=== PATIENT | male | born 1935 | race Caucasian/White ===

== ENCOUNTER 2025-07-14 17:49 | Inpatient (IN) ==
--- NOTE | 2025-07-14 18:12 | ED Physician Documentation ---
PD HPI ABD PAIN Stated complaint Stated Complaint: N/V/ABD PX Chief complaint Chief Complaint: Abd Pain History obtained from History obtained from: Patient, Family and EMS History of Present Illness Pain level max: 10 Pain level now: 10 Quality: Aching and Pain Associated symptoms: No Melena or Hematochezia Additional information Additional information: 89-year-old male presents to the emergency department with sudden onset left lower quadrant abdominal pain at about noon today. 5-10 episodes of vomiting since then. He states he tripped fell and hit the ground with his face. He is unsure if he passed out or lost consciousness. No chest pain. No shortness of breath. He states he has been dealing with constipation. Was hypotensive with EMS. Not on blood thinners. Denies any abdominal surgeries in the past. Review of Systems Constitutional Denies: Fever or Chills Respiratory Denies: Cough Gastrointestinal Reports: Vomiting; Denies: Harvinder blood emesis or Coffee grounds in vomit Meds/Allgy Home Medications Ambulatory Orders Medication Instructions Recorded Confirmed amlodipine 5 mg tablet 5 mg PO DAILY 01/18/2501/18 doxazosin 8 mg tablet 8 mg PO DAILY 01/18/2501/18 fluticasone 500 mcg-salmeterol 50 1 inh inhalation PRN PRN wheezing 01/18/25 01/18/25 mcg/dose blistr powdr for inhalation (Wixela Inhub) lisinopril 10 mg tablet 10 mg PO DAILY 01/18/2512/10 pantoprazole 40 mg tablet,delayed 40 mg PO DAILY 01/1801/18/25 release simvastatin 20 mg tablet 20 mg PO DAILY 01/18/2512/10 trazodone 50 mg tablet 50 mg PO DAILY 01/18/2512/10 Allergies Allergies Allergy/AdvReac Type Severity Reaction Status Date / Time No Known Drug Allergies Allergy Verified 07/14/25 17:53 PFSH Active Problems All Active Problems (Updated 07/14/25 @ 23:23 by Byron Reyes MD) Vomiting (Acute) Incarcerated left inguinal hernia (Acute) Anxiety (Chronic) Asthma (Chronic) Hypertension (Chronic) Bowel obstruction (Acute) Left inguinal hernia (Acute) Medical History Medical History Esophageal obstruction due to food impaction History of prostate cancer (~2002) s/p brachytherapy Surgical History Surgical History History of colonoscopy History of tonsillectomy Social History Social History Do you feel safe in your home environment?: Yes History of physical, verbal, emotional, or financial abuse?: No Exam Exam Vital Signs: Vital Signs x48h Temp Pulse Resp BP Pulse Ox O2 Flow Rate 07/14/25 22:00 37 C 105 H 22 117/80 94 3 07/14/25 20:00 101 H 18 137/52 H 98 07/14/25 18:59 93 18 137/52 H 92 07/14/25 17:50 36.1 C L 97 19 138/66 H 95 Constitutional normal general appearance and no apparent distress Patient appears uncomfortable. HENMT oropharynx normal moist mucous membranes Eyes PERRL Neck/C-Spine visual inspection normal Respiratory breath sounds equal bilaterally, normal respiratory effort and clear to auscultation bilaterally Cardiovascular normal heart rate noted and regular rhythm noted Gastrointestinal Distended abdomen, tympanic to percussion, generalized tenderness to palpation. No peritoneal signs Genitourinary no CVA tenderness Extremities no edema Neurology speech normal Psychiatry mental status grossly normal and oriented x3 Skin skin color normal Results Vitals Vitals: Vital Signs - 24 hr 07/14/25 17:50 07/14/25 18:17 07/14/25 18:46 Temperature 36.1 C L Temperature Source Temporal Artery Scan Pulse Rate 97 Respiratory Rate 19 Blood Pressure 138/66 H O2 Saturation 95 O2 Source Room air If not protocol: Oxygen Flow, liters/minute Pain Intensity 9 9 9 07/14/25 18:52 07/14/25 18:59 07/14/25 19:57 Temperature Temperature Source Pulse Rate 93 Respiratory Rate 18 Blood Pressure 137/52 H O2 Saturation 92 O2 Source Room air If not protocol: Oxygen Flow, liters/minute Pain Intensity 8 7 7 07/14/25 20:00 07/14/25 20:05 07/14/25 21:16 Temperature Temperature Source Pulse Rate 101 H Respiratory Rate 18 Blood Pressure 137/52 H O2 Saturation 98 O2 Source Room air If not protocol: Oxygen Flow, liters/minute Pain Intensity 3 7 4 07/14/25 22:00 07/14/25 22:37 07/14/25 23:07 Temperature 37 C Temperature Source Pulse Rate 105 H Respiratory Rate 22 Blood Pressure 117/80 O2 Saturation 94 O2 Source Nasal cannula If not protocol: Oxygen Flow, liters/minute 3 Pain Intensity 7 7 4 Oxygen O2 Source Nasal cannula EKG (time done) 1815: EKG releavant findings:: EKG personally interpreted by author of this note. Relevant findings are: Rate: Other (84 bpm. Sinus rhythm. Normal NC interval. Right bundle branch block. No ischemic changes) Labs Labs: Laboratory Tests 07/14/25 07/14/25 07/14/25 18:05 18:38 22:42 WBC 20.2 H 27.4 H RBC 4.78 4.54 L Hgb 15.2 14.5 Hct 46.1 44.2 MCV 96.4 H 97.4 H MCH 31.8 H 31.9 H MCHC 33.0 32.8 RDW 13.1 13.2 Plt Count 318 317 MPV 10.6 9.9 Neut # (Auto) 18.3 H 25.6 H Lymph # (Auto) 1.1 L 0.5 L [place] # (Auto) 0.6 1.2 H Eos # (Auto) 0.0 0.0 Baso # (Auto) 0.1 0.1 Absolute Nucleated RBC 0.00 0.00 Band Neuts % (Manual) Not Reportable Not Reportable Abnorm Lymph % (Manual) Not Reportable Not Reportable Nucleated RBC % 0.0 0.0 Neutrophils # (Manual) Not Reportable Not Reportable Lymphocytes # (Manual) Not Reportable Not Reportable Monocytes # (Manual) Not Reportable Not Reportable Eosinophils # (Manual) Not Reportable Not Reportable Basophils # (Manual) Not Reportable Not Reportable Differential Comment MANUAL=AUTO DIFF MANUAL=AUTO DIFF Manual Slide Review Indicated Indicated Platelet Estimate NORMAL (130-450,000) NORMAL (130-450,000) Platelet Morphology NORMAL APPEARANCE NORMAL APPEARANCE RBC Morph Micro Appear NORMAL APPEARANCE NORMAL APPEARANCE Sodium 136 137 Potassium 3.9 4.1 Chloride 103 108 Carbon Dioxide 24 23 Anion Gap 9.0 6.0 BUN 21 H 22 H Creatinine 1.5 H 1.5 H Estimated GFR (MDRD) 44 L 44 L Glucose 160 H 138 H Lactic Acid 2.3 H 1.6 Calcium 8.9 7.9 L Total Bilirubin 1.0 AST 19 ALT 19 Alkaline Phosphatase 51 Total Protein 6.6 Albumin 4.0 Globulin 2.6 Albumin/Globulin Ratio 1.5 Lipase 25 Rads (name of study) CT abdomen pelvis: Relevant Findings:: Final report received PD Medical Decision Making ED course Complexity details: reviewed results, re-evaluated patient, considered differential, d/w patient, d/w family and d/w business info consultant ED course: 89-year-old male with an incarcerated left inguinal hernia causing a bowel obstruction. The inguinal hernia was reduced in the emergency department, patient still has a large amount of stomach contents and fecal contents backing up up from the bowel obstruction, continues to have pain. Elevated white blood cell count but is lactate decreased from 2.3-1.6. NG tube was placed. Discussed with Dr. Reyes, general surgery on-call, recommends repeat evaluation after NG tube placement. If heart rate has come down and pain is improving, recommend admission to the hospitalist service and surgery will consult in the morning. If pain is increasing or heart rate is not improving despite NG tube on repeat assessment, will require a callback tonight to surgery. Patient signed out to Dr. Narvaez. This document was made in part using voice recognition software. While efforts are made to proofread this document, sound alike and grammatical errors may occur. Discharge Plan Discharge Condition: Stable Clinical Impression: Incarcerated left inguinal hernia Bowel obstruction Qualifiers: Intestinal obstruction type: unspecified Intestinal obstruction extent: partial Qualified Code(s): K56.600 - Partial intestinal obstruction, unspecified as to cause Vomiting Qualifiers: Vomiting type: unspecified Nausea presence: with nausea Qualified Code(s): R11.2 - Nausea with vomiting, unspecified Prescriptions: No Action trazodone 50 mg tablet 50 mg PO DAILY amlodipine 5 mg tablet 5 mg PO DAILY doxazosin 8 mg tablet 8 mg PO DAILY pantoprazole 40 mg tablet,delayed release (DR/EC) 40 mg PO DAILY simvastatin 20 mg tablet 20 mg PO DAILY lisinopril 10 mg tablet 10 mg PO DAILY fluticasone propion-salmeterol [Wixela Inhub] 500-50 mcg/dose blister with device 1 inh INHALATION PRN PRN (Reason: wheezing) Print Language: Guamanian Stand Alone Forms: PCP List
[2025-07-14] MEDS: HYDROmorphone 0.5 MG/0.5 ML SYRINGE IVP STA ×4 (18:17→22:37)
[2025-07-14 18:18] LABS: HCT - HEMATOCRIT 46.1 % (42.0-52.0); HGB - HEMOGLOBIN 15.2 g/dL (14.0-18.0); MEAN PLATELET VOLUME 10.6 fL (7.4-11.4); NRBC ABSOLUTE COUNT (AUTO) 0.00 x10^3/uL; NUCLEATED RED BLOOD CELLS AUTO 0.0 /100WBC; PLT - PLATELET COUNT 318 10^3/uL (130-450); RED CELL DISTRIBUTION WIDTH 13.1 % (12.0-15.0)
[2025-07-14] MEDS: SODIUM CHLORIDE 0.9% 1,000 ML IV STA ×4 (18:18→22:38)
[2025-07-14 18:19] LABS: SLIDE REVIEW? Indicated
[2025-07-14 19:01] LABS: PLATELET ESTIMATE, MANUAL NORMAL (130-450,000) (NORMAL); PLATELET MORPHOLOGY NORMAL APPEARANCE (NORMAL); RBC MORPHOLOGY (MULTIPLE) NORMAL APPEARANCE (NORMAL)
[2025-07-14 19:03] LABS: ALT ALANINE AMINOTRANSFERASE 19.0 IU/L (10-60); AST ASPARTATE AMINOTRANSFERASE 19.0 IU/L (10-42); BUN - BLOOD UREA NITROGEN 21.0 mg/dL (6-20); CARBON DIOXIDE - CO2 24.0 mmol/L (21-32); CREATININE 1.5 mg/dL (0.6-1.3); GFR - MDRD 44.0 (>89)
[2025-07-14] MEDS: HYOSCYAMINE SL 0.125 MG TABLET SL STA (20:05)
--- NOTE | 2025-07-14 20:45 | CT Report ---
PROCEDURE: CT Abdomen/Pelvis W INDICATIONS: diffuse abd pain, vomiting, distention CONTRAST: omni 300, 100ml TECHNIQUE: After the administration of intravenous contrast, a CT scan of the abdomen and pelvis was performed. Images were recorded and evaluated at appropriate window settings. Reformats: coronal and sagittal. For radiation dose reduction, the following was used: automated exposure control, adjustment of mA and/or kV according to patient size. COMPARISON: CT abdomen pelvis 08/28/2014 FINDINGS: Image quality: Diagnostic. Lower chest: Subsegmental atelectasis. Patulous esophagus. Moderate hiatal hernia Liver: No solid mass. Gallbladder: No radiopaque stones or wall thickening. Biliary tree: No intrahepatic or extrahepatic dilation, accounting for age. Spleen: No splenomegaly. Pancreas: No pancreatic ductal dilation. Adrenals: No adrenal nodule. Kidneys and ureters: No hydronephrosis. No renal cystic lesion which requires follow up. No solid mass. Stomach, bowel and peritoneum: There is distention of the colon from the cecum, transverse colon and left descending colon to the level of the inguinal hernia. Exiting bowel from the hernia sac is decompressed. There is fecal stasis predominantly seen in the left colon. No wall thickening or pneumatosis coli no gastric or small bowel dilation. No abnormal wall thickening. No pathologic free fluid. Normal appendix. Lymph nodes: No central or retroperitoneal adenopathy. Vessels: No infrarenal aortic aneurysm. Patent portal vein. PELVIS Reproductive organs: Brachytherapy seeds. Bladder: No abnormal wall thickening. Pelvic lymph nodes: No pelvic adenopathy by size criteria. Bones: No aggressive osseous abnormality. Other: Left inguinal hernia containing descending colon.. IMPRESSION: Left inguinal hernia containing descending colon with upstream distention of large bowel concerning for possible partial obstruction. No wall thickening or CT evidence of strangulation. Patulous esophagus with moderate hiatal hernia. Reviewed by: Eugenie Lowry MD, PhD on 07/14/2025 8:42 PM PDT Approved by: Eugenie Lowry MD, PhD on 07/14/2025 8:42 PM PDT Station ID: [id number]
--- NOTE | 2025-07-14 20:46 | CT Report ---
PROCEDURE: CT Head WO INDICATIONS: fall, head injury TECHNIQUE: CT of the head was performed, without intravenous contrast. Reformats: Coronal and sagittal. For radiation dose reduction, the following was used: automated exposure control, adjustment of mA and/or kV according to patient size. COMPARISON: None. FINDINGS: Image quality: Diagnostic. CSF spaces: Basal cisterns are patent. No extra-axial fluid collections. Ventricles are normal in size and shape. Brain: No midline shift. No intracranial mass effect or hemorrhage. Resendiz- white matter interface is normal. Skull and face: Calvarium and visualized facial bones are intact, without suspicious lesions. Sinuses: Diffuse maxillary mucosal thickening and areas of opacification. Mastoids are clear. IMPRESSION: No acute intracranial pathology. Reviewed by: Eugenie Lowry MD, PhD on 07/14/2025 8:43 PM PDT Approved by: Eugenie Lowry MD, PhD on 07/14/2025 8:43 PM PDT Station ID: [id number]
[2025-07-14] MEDS: MIDAZOLAM 2 MG/2 ML VIAL IVP STA ×2 (21:26→23:13)
[2025-07-14 22:47] LABS: HCT - HEMATOCRIT 44.2 % (42.0-52.0); HGB - HEMOGLOBIN 14.5 g/dL (14.0-18.0); MEAN PLATELET VOLUME 9.9 fL (7.4-11.4); NRBC ABSOLUTE COUNT (AUTO) 0.00 x10^3/uL; NUCLEATED RED BLOOD CELLS AUTO 0.0 /100WBC; PLT - PLATELET COUNT 317 10^3/uL (130-450); RED CELL DISTRIBUTION WIDTH 13.2 % (12.0-15.0)
[2025-07-14] MEDS: LIDOCAINE JELLY 2% 6 ML JEL.PF.APP TOP STA (22:59)
[2025-07-14 23:01] LABS: BUN - BLOOD UREA NITROGEN 22.0 mg/dL (6-20); CARBON DIOXIDE - CO2 23.0 mmol/L (21-32); CREATININE 1.5 mg/dL (0.6-1.3); GFR - MDRD 44.0 (>89)
[2025-07-14 23:02] LABS: SLIDE REVIEW? Indicated
--- NOTE | 2025-07-14 23:12 | CONSULTATION NOTE ---
Referring Provider Name of Referring Provider:: ED (Eric) Consult Date: 07/14/25 Chief Complaint Chief Complaint Chief Complaint: My belly hurts. History of Present Illness History of Present Illness HPI Comment/Other: Patient presents with 5 hour history of abdominal pain, associated with nausea and vomiting after eating a salad at lunch around 1200 today. His pain progressively worsened and he had nausea and emesis. He then fell to the ground without hitting anything per his report, vomited again, and then hit his head on a plastic trash can while vomiting, per his . The patient reports he has been constipated for the last several days. He has never had similar symptoms in the past. He has a known left groin hernia which has never bothered him much before. Patient lives with his . He wishes to be a DNAR/DNI. PFSH Active Problems All Active Problems (Updated 07/14/25 @ 23:36 by Mariya Reyes MD) Gout (Chronic) Vomiting (Acute) Incarcerated left inguinal hernia (Acute) Anxiety (Chronic) Asthma (Chronic) Hypertension (Chronic) Bowel obstruction (Acute) Left inguinal hernia (Acute) Medical History Medical History Esophageal obstruction due to food impaction History of prostate cancer (~2002) s/p brachytherapy Surgical History Surgical History H/O sinus surgery History of colonoscopy History of tonsillectomy Social History Social History Do you feel safe in your home environment?: Yes History of physical, verbal, emotional, or financial abuse?: No POLST POLST CPR Status: Do Not Attempt Resuscitation (DNAR) / Allow Natural Meds/Allgy Home Medications Ambulatory Orders Medication Instructions Recorded Confirmed amlodipine 5 mg tablet 5 mg PO DAILY 01/18/2507/14 doxazosin 8 mg tablet 8 mg PO BID 01/18/25 5 fluticasone 500 mcg-salmeterol 50 1 inh inhalation PRN PRN wheezing 01/18/25 07/14/25 mcg/dose blistr powdr for inhalation (Wixela Inhub) lisinopril 10 mg tablet 10 mg PO DAILY 01/18/2506/19 pantoprazole 40 mg tablet,delayed 40 mg PO DAILY 01/1807/14/25 release simvastatin 20 mg tablet 20 mg PO DAILY 01/18/2506/19 trazodone 50 mg tablet 25 mg PO DAILY 01/18/2506/19 alprazolam 0.25 mg tablet 0.125 - 0.25 mg PO DAILY PRN 07/14/25 07/14/25 anxiety aspirin 81 mg capsule 81 mg PO DAILY 07/14/2506/19 colchicine 0.6 mg capsule See Rx Instructions PO DAILY 07/14/25 07/14/25 hydrocodone 5 mg-acetaminophen 325 1 tab PO Q4H PRN pa in 07/14/25 07/14/25 mg tablet Allergies Allergies Allergy/AdvReac Type Severity Reaction Status Date / Time No Known Drug Allergies Allergy Verified 07/14/25 17:53 Results Lab Results 07/14/25 22:42 07/14/25 22:42 Other Lab Results: Lab Results x24hrs 07/14/25 07/14/25 07/14/25 Range/Units 22:42 18:38 18:05 WBC 20.2 H (4.8-10.8) x10^3/uL RBC 4.78 (4.70-6.10) 10^6/uL Hgb 15.2 (14.0-18.0) g/dL Hct 46.1 (42.0-52.0) % MCV 96.4 H (80.0-94.0) fL MCH 31.8 H (27.0-31.0) pg MCHC 33.0 (32.0-36.0) g/dL RDW 13.1 (12.0-15.0) % Plt Count 318 (130-450) 10^3/uL MPV 10.6 (7.4-11.4) fL Neut # (Auto) 18.3 H (1.5-6.6) 10^3/uL Lymph # (Auto) 1.1 L (1.5-3.5) 10^3/uL [place] # (Auto) 0.6 (0.0-1.0) 10^3/uL Eos # (Auto) 0.0 (0.0-0.7) 10^3/uL Baso # (Auto) 0.1 (0.0-0.1) 10^3/uL Absolute Nucleated RBC 0.00 x10^3/uL Band Neuts % (Manual) Not Reportable Abnorm Lymph % (Manual) Not Reportable Nucleated RBC % 0.0 /100WBC Neutrophils # (Manual) Not Reportable Lymphocytes # (Manual) Not Reportable Monocytes # (Manual) Not Reportable Eosinophils # (Manual) Not Reportable Basophils # (Manual) Not Reportable Differential Comment MANUAL=AUTO DIFF Manual Slide Review Indicated Platelet Estimate NORMAL (130-450,000) (NORMAL) Platelet Morphology NORMAL APPEARANCE (NORMAL) RBC Morph Micro Appear NORMAL APPEARANCE (NORMAL) Sodium 137 136 (135-145) mmol/L Potassium 4.1 3.9 (3.5-4.5) mmol/L Chloride 108 103 (101-111) mmol/L Carbon Dioxide 23 24 (21-32) mmol/L Anion Gap 6.0 9.0 (6-13) BUN 22 H 21 H (6-20) mg/dL Creatinine 1.5 H 1.5 H (0.6-1.3) mg/dL Estimated GFR (MDRD) 44 L 44 L (>89) Glucose 138 H 160 H (74-104) mg/dL Lactic Acid 1.6 2.3 H (0.5-2.2) mmol/L Calcium 7.9 L 8.9 (8.5-10.3) mg/dL Total Bilirubin 1.0 (0.2-1.0) mg/dL AST 19 (10-42) IU/L ALT 19 (10-60) IU/L Alkaline Phosphatase 51 (42-121) IU/L Total Protein 6.6 (6.4-8.9) g/dL Albumin 4.0 (3.2-5.5) g/dL Globulin 2.6 (2.1-4.2) g/dL Albumin/Globulin Ratio 1.5 (1.0-2.2) Lipase 25 (11-82) U/L Repeat labs are currently pending Diagnostic Imaging Results Diagnostic Imaging Results: positive Final report reviewed Diagnostic Imaging Results Comments: CT scan of the abdomen and pelvis from today demonstrates large bowel in the left inguinal hernia causing a partial obstruction with gaseous distention of the colon. He has mild distention of the small bowel and stomach. There is no free air. There is no significant free fluid. There is marked central obesity. CT scan of the head today demonstrates no acute intracranial pathology. Review of Systems Status of ROS: 10 or more systems reviewed and unremarkable except as noted in history and below Exam Exam Vital Signs: Vital Signs x48h Temp Pulse Resp BP Pulse Ox O2 Flow Rate 07/14/25 22:00 98.6 F 105 H 22 117/80 94 3 07/14/25 20:00 101 H 18 137/52 H 98 07/14/25 18:59 93 18 137/52 H 92 07/14/25 17:50 97.0 F L 97 19 138/66 H 95 GEN: No acute distress, appears stated age, alert and oriented to person, place and time HEENT: pupils 2mm bilaterally, PERRL, dry mucous membranes, EOMI, abrasions on central forehead and bridge of nose. NEURO: CN II-XII grossly intact, no obvious focal deficits CV: mild tachycardia, regular rhythm (patient examined just after attempt at NG placement) PULM: coarse breath sounds bilaterally ABD: obese, moderately distended, with mild upper abdominal tenderness to palpation and moderate lower tenderness to palpation, no rebound or guarding; pruett in place with 500mL yellow urine on placement CIRCULATORY: no clubbing, cyanosis, or edema SKIN: no lesions appreciated LYMPH: no obvious lymphadenopathy MSK: 4/4 strength in all extremities PSYCH: Affect is appropriate Conclusion/Plan Problem List (1) Left inguinal hernia: (2) Bowel obstruction: (3) Hypertension: (4) Asthma: (5) Anxiety: Plan 89-year-old gentleman with: 1. Left inguinal hernia, incarcerated, causing bowel obstruction The hernia which appeared incarcerated on CT, was reduced by the emergency room provider. After reduction, the patient continues to have some abdominal discomfort. - I suspect his obstruction will resolve now that the hernia has been reduced. He continues to have nausea and is distended. An NG tube has been ordered. If output is low overnight. Plan to clamp in the morning. - He has no peritoneal signs or need for emergent surgical intervention at this time. I do recommend close outpatient follow-up and elective hernia repair. The benefit to elective hernia repair is less risk for bacterial translocation thereby reducing the risk for mesh placement, which would allow for a more robust repair. I discussed this with the patient and his and they are agreeable to this plan of care. 2. KSENIA, urinary retention The patient has received 2.5 L of fluid since his presentation. Repeat labs are pending. - Prutet catheter placed. 3. elevated lactate level - likely due to dehydration. Rechecking lactate level now. 3. constipation - consider suppository vs enema in AM given several day h/o constipation prior to admission 3. Hypertension, asthma, anxiety, history of prostate cancer, hyperlipidemia, GERD, gout -Due to the patient's multiple medical comorbidities, I have recommended that he be admitted by the medicine team for observation. I appreciate their recommendations in managing his chronic comorbidities. Patient wishes to be DNAR/DNI; he clearly articulates this wish to me and states he's previously signed a DNR. I anticipate the patient will likely improve significantly overnight, likely discharge tomorrow if he is able to tolerate a diet and his pain is improved. If he remains unsteady on his feet, he may need PT evaluation. His is worried about him getting around at home as she has limited mobility herself. I discussed the above plan of care with the patient, his , and the ED provider (Dr. Reyes). Lab Results 07/14/25 22:42 07/14/25 22:42 Diagnostic Imaging Results Diagnostic Imaging Results: positive Final report reviewed
[2025-07-14 23:15] LABS: PLATELET ESTIMATE, MANUAL NORMAL (130-450,000) (NORMAL); PLATELET MORPHOLOGY NORMAL APPEARANCE (NORMAL); RBC MORPHOLOGY (MULTIPLE) NORMAL APPEARANCE (NORMAL)
[2025-07-14 23:23] LABS: GLUCOSE, URINE (UA) NEGATIVE (NEGATIVE); KETONES,URINE (UA) NEGATIVE (NEGATIVE); OCCULT BLOOD,URINE NEGATIVE (NEGATIVE)
[2025-07-15] MEDS ORDERED: LIDOCAINE 1% 2 ML VIAL ONE (00:19)
--- NOTE | 2025-07-15 00:29 | ED Physician Documentation ---
ED Addendum Addendum Addendum: I received signout/turnover on this patient from Dr. Reyes; please see his note for complete H&P. Testing from the emergency standpoint has been completed and results are suggestive of small bowel obstruction in association with a left inguinal hernia (left inguinal hernia apparent on both CT scan as well as on physical exam). The left inguinal hernia was reduced by Dr. Lou prior to turnover of care. Dr. Lou had spoken to the on-call surgeon (Dr. Reyes) and Dr. Reyes s ubsequently comes to ED and evaluated patient. Dr. Reyes says patient is appropriate for [facility] to [facility], she recommends hospitalist admission. NG tube had been placed during Dr. Lou's shift. However, x-ray showed the tube was not in proper position and thus it was removed and replaced by ED RN. Confirmation of appropriate placement by x-ray is pending at the time of turnover of care. Unfortunately, on x-ray, the tube is again not in proper position; it appears to be near the diaphragm but is clearly not below it, suspect it is in the hiatal hernia (the hiatal hernia is seen on CT A/P from earlier). ED RN pulled the tube back without removing it entirely, then again advanced the NGT. Unfortunately, yet again the NGT tip is above the diaphragm in a position that would suggest it is in hiatal hernia. I spoke with [facility] and they do not feel comfortable admitting the patient until I discussed the problem with the NG tube with Dr. Reyes. I then discussed this with Dr. Reyes. She says the tube can be left in its current position provided it is not curled up/coiled in posterior pharynx, and would particularly recommend keeping it in current position if there is any ou tput to intermittent low wall suction. ED RN had told me there was small amount of NGT output on this placement, and she subsequently rechecks the posterior o/p and no evidence of coiling of the tube in posterior oropharynx. I then recontacted [facility] who will admit to hospitalist service [facility]. Discharge Plan Discharge Patient Disposition: 68 [facility] DC/Xfer Condition: Stable Clinical Impression: Incarcerated left inguinal hernia Bowel obstruction Qualifiers: Intestinal obstruction type: unspecified Intestinal obstruction extent: partial Qualified Code(s): K56.600 - Partial intestinal obstruction, unspecified as to cause Vomiting Qualifiers: Vomiting type: unspecified Nausea presence: with nausea Qualified Code(s): R11.2 - Nausea with vomiting, unspecified Interventions: ED Admission Assessment Last Done: 07/15/25 03:05 Vitals documented within 30 minutes of discharge?: Yes
[2025-07-15] MEDS ORDERED: [UNRECOGNIZED DRUG - OTHER] INH PRN (00:30)
[2025-07-15] MEDS: LIDOCAINE 1% 2 ML VIAL TD STA (00:32)
[2025-07-15] MEDS: HYDROmorphone 1 MG/ML CARPUJECT IVP STA ×2 (00:42→02:00)
[2025-07-15] MEDS ORDERED: ACETAMINOPHEN 325 MG TABLET PO PRN (00:52)
[2025-07-15] MEDS ORDERED: ONDANSETRON 4 MG/2 ML VIAL IVP PRN (00:52)
[2025-07-15] MEDS ORDERED: BENZONATATE 100 MG CAPSULE PO PRN (00:52)
--- NOTE | 2025-07-15 00:59 | XRAY Report ---
PROCEDURE: XR Chest for Line Placement INDICATIONS: NG placement TECHNIQUE: 1 view of the chest COMPARISON: CT abdomen pelvis July 14, 2025 FINDINGS: Enteric tube tip curled in the lower mediastinum above the level of the diaphragm likely within known moderate sized hiatal hernia. No pneumothorax or pleural effusion. No focal consolidation. Heart size normal. IMPRESSION: Enteric tube placement as above. Reviewed by: Glynn Modi MD on 07/15/2025 12:56 AM PDT Approved by: Glynn Modi MD on 07/15/2025 12:56 AM PDT Station ID: [id number]
--- NOTE | 2025-07-15 01:00 | XRAY Report ---
PROCEDURE: XR Chest for Line Placement INDICATIONS: NGT placement TECHNIQUE: 1 view of the chest COMPARISON: None FINDINGS: Enteric tube tip and sideport curled within the lower mediastinum above the level of the diaphragm likely within known hiatal hernia. No focal consolidation. No pneumothorax or pleural effusion. Heart size normal. IMPRESSION: Enteric tube above the diaphragm as above. Reviewed by: Glynn Modi MD on 07/15/2025 12:57 AM PDT Approved by: Glynn Modi MD on 07/15/2025 12:57 AM PDT Station ID: [id number]
[2025-07-15] MEDS ORDERED: LORazepam 2 MG/ML VIAL ONE (02:00)
[2025-07-15] MEDS: LORazepam 2 MG/ML VIAL IVP STA (02:01)
--- NOTE | 2025-07-15 02:53 | HISTORY & PHYSICAL EXAMINATION ---
Chief Complaint Chief Complaint Chief Complaint: abd pain, nausea / vomiting, fall History of Present Illness History of Present Illness HPI Comment/Other: pt with lower abdominal pain + nausea and vomiting that developed in last 24-48 h. no fevers but has chills. states he tripped and fell @ home but unsure if he passed out. denies head injury. no chest pain. no sob. no dysuria or hematuria. pt does have occasional constipation Review of Systems Status of ROS: 10 or more systems reviewed and unremarkable except as noted in history and below PFSH Active Problems All Active Problems (Updated 07/14/25 @ 23:36 by Mariya Reyes MD) Gout (Chronic) Vomiting (Acute) Incarcerated left inguinal hernia (Acute) Anxiety (Chronic) Asthma (Chronic) Hypertension (Chronic) Bowel obstruction (Acute) Left inguinal hernia (Acute) Medical History Medical History Esophageal obstruction due to food impaction History of prostate cancer (~2002) s/p brachytherapy Surgical History Surgical History H/O sinus surgery History of colonoscopy History of tonsillectomy Social History Social History Smoking Status: Unknown if ever smoked Do you feel safe in your home environment?: Yes History of physical, verbal, emotional, or financial abuse?: No POLST POLST CPR Status: Do Not Attempt Resuscitation (DNAR) / Allow Natural Meds/Allgy Home Medications Ambulatory Orders Medication Instructions Recorded Confirmed amlodipine 5 mg tablet 5 mg PO DAILY 01/18/2507/14 doxazosin 8 mg tablet 8 mg PO BID 01/18/25 5 fluticasone 500 mcg-salmeterol 50 1 inh inhalation PRN PRN wheezing 01/18/25 07/14/25 mcg/dose blistr powdr for inhalation (Williamsela Inhub) lisinopril 10 mg tablet 10 mg PO DAILY 01/18/2506/19 pantoprazole 40 mg tablet,delayed 40 mg PO DAILY 01/1807/14/25 release simvastatin 20 mg tablet 20 mg PO DAILY 01/18/2506/19 trazodone 50 mg tablet 25 mg PO DAILY 01/18/2506/19 alprazolam 0.25 mg tablet 0.125 - 0.25 mg PO DAILY PRN 07/14/25 07/14/25 anxiety aspirin 81 mg capsule 81 mg PO DAILY 07/14/2506/19 colchicine 0.6 mg capsule See Rx Instructions PO DAILY 07/14/25 07/14/25 hydrocodone 5 mg-acetaminophen 325 1 tab PO Q4H PRN pa in 07/14/25 07/14/25 mg tablet Allergies Allergies Allergy/AdvReac Type Severity Reaction Status Date / Time No Known Drug Allergies Allergy Verified 07/14/25 17:53 Exam Exam Vital Signs: Vital Signs x48h Temp Pulse Resp BP Pulse Ox O2 Flow Rate 07/15/25 02:00 98 20 94/52 L 97 2 07/15/25 00:00 98 23 90/54 L 95 2 07/14/25 22:00 37 C 105 H 22 117/80 94 3 07/14/25 20:00 101 H 18 137/52 H 98 07/14/25 18:59 93 18 137/52 H 92 gen - aaox3, nad heent - ngt in place, nc/at heart - per ed charting lungs - no obvius distress or retractions abd - details per ed charting msk - no acute pathology noted Conclusion/Plan Problem List (1) Left inguinal hernia: (2) Bowel obstruction: Qualifiers: Intestinal obstruction extent: partial Intestinal obstruction type: u nspecified Qualified Code(s): K56.600 - Partial intestinal obstruction, unspecified as to cause (3) Hypertension: (4) Asthma: (5) Anxiety: Lab Results 07/14/25 22:42 07/14/25 22:42 Other Other Results/Comments: pt with - - abd pain multifactorial partial sbo also with L inguinal hernia, now s/p reduction ngt placed d/t nausea and vomiting but there is persistent coiling --> don't give meds via ngt at this time but continue ngt per surgery pt is feeling somewhat better gen surg on case, and appreciate evaluation and recommendations - fall unclear if there was head impact tripped and fell head CT negative and no neuro deficits - juan jose exacerbated t/ current presentation pre-renal azotemia from nausea/vomiting and decreased po intake check renal sono continue IVF avoid nephrotoxins as much as possible - leukocytosis + hypotension + elevated lactic acid no obvious infectious source d/t current presentation --> nausea/vomiting, gi losses continue IVF and monitor defer abx at this time
[2025-07-15] MEDS: LACTATED RINGERS 1,000 ML IV SCH (03:27)
[2025-07-15] MEDS: MORPHINE 2 MG/ML CARPUJECT IVP PRN (03:27)
[2025-07-15 04:44] LABS: HCT - HEMATOCRIT 44.5 % (42.0-52.0); HGB - HEMOGLOBIN 14.0 g/dL (14.0-18.0); MEAN PLATELET VOLUME 10.2 fL (7.4-11.4); NRBC ABSOLUTE COUNT (AUTO) 0.00 x10^3/uL; NUCLEATED RED BLOOD CELLS AUTO 0.0 /100WBC; PLT - PLATELET COUNT 321 10^3/uL (130-450); RED CELL DISTRIBUTION WIDTH 13.3 % (12.0-15.0)
[2025-07-15 05:04] LABS: ALT ALANINE AMINOTRANSFERASE 16.0 IU/L (10-60); AST ASPARTATE AMINOTRANSFERASE 17.0 IU/L (10-42); BUN - BLOOD UREA NITROGEN 28.0 mg/dL (6-20); CARBON DIOXIDE - CO2 23.0 mmol/L (21-32); CREATININE 1.6 mg/dL (0.6-1.3); GFR - MDRD 41.0 (>89)
[2025-07-15 05:06] LABS: CHOL/HDL RATIO 2.9 (<5.0); LDL/HDL RATIO 1.5 (<3.6); VLDL CHOLESTEROL 13 mg/dL
[2025-07-15 05:23] LABS: PLATELET ESTIMATE, MANUAL NORMAL (130-450,000) (NORMAL); PLATELET MORPHOLOGY NORMAL APPEARANCE (NORMAL); RBC MORPHOLOGY (MULTIPLE) NORMAL APPEARANCE (NORMAL); WBC MORPHOLOGY (MULTIPLE) NORMAL APPEARANCE (NORMAL)
[2025-07-15] MEDS: LACTATED RINGERS 1,000 ML IV ONE ×2 (05:57→21:23)
[2025-07-15] MEDS: HYDROmorphone 0.5 MG/0.5 ML SYRINGE IVP STA (05:58)
[2025-07-15] MEDS: ACETAMINOPHEN 1,000 MG/100 ML 1,000 MG/100 ML BAG IV ONE (07:34)
[2025-07-15] MEDS ORDERED: MORPHINE 2 MG/ML CARPUJECT IVP PRN (08:00)
--- NOTE | 2025-07-15 08:44 | PROVIDER PROGRESS NOTE ---
Subjective General Admit Date: 07/15/25 Other Other Information/Narrative: Patient transferred to floor and has received minimal pain medication overnight. He continues to have pain. Very difficult time placing NG overnight, low output per RN's. Review of Systems Status of ROS: 10 or more systems reviewed and unremarkable except as noted in history and below Exam Exam Vital Signs: Vital Signs x48h Temp Pulse Pulse Resp BP BP Pulse Ox 07/15/25 08:13 98.1 F 90 28 H 92/50 L 93 07/15/25 07:01 97.9 F 90 24 90/53 L 93 07/15/25 06:20 90/50 L 07/15/25 05:52 87/48 L 07/15/25 05:50 89/48 L 07/15/25 05:15 71/46 L 07/15/25 03:05 97 22 92/50 L 97 07/15/25 03:04 97.7 F 96 22 107/66 94 07/15/25 02:00 98 20 94/52 L 97 O2 Flow Rate 07/15/25 08:13 3 07/15/25 07:01 3 07/15/25 06:20 07/15/25 05:52 07/15/25 05:50 07/15/25 05:15 07/15/25 03:05 2 07/15/25 03:04 2 07/15/25 02:00 2 Gen: patient in mild distress due to pain, alert and oriented, opens eyes to voice HEENT:NG in place with small amount of bilious fluid in tube, no NG output recorded CV: RRR Pulm: coarse breath sounds bilaterally Abd: obese, distended, moderate, diffuse ttp, worst in LUQ. No r/g. Pruett in place, 150mL UOP recorded (patient had at least 500mL in pruett at time of placement) Ext: no c/c/e, multiple bruises Impression/Plan Problem List (1) Left inguinal hernia: (2) Bowel obstruction: Qualifiers: Intestinal obstruction extent: partial Intestinal obstruction type: unspecified Qualified Code(s): K56.600 - Partial intestinal obstruction, unspec ified as to cause (3) Hypertension: (4) Asthma: (5) Anxiety: Plan 89-year-old gentleman with: 1. Left inguinal hernia, incarcerated, causing bowel obstruction pain continues this AM, still no obvious peritoneal signs - leukocytosis and lactate level increased this AM - In order to r/o bowel compromise, and given patient's worsened objective picture, I recommend taking the patient to surgery for hernia repair, possible exploratory laparotomy, possible bowel resection this AM. I have discussed the risks, benefits, and alternatives including but not limited to bleeding, infection, leak, cardiopulmonary complication, possible need for further surgery or procedure, and even with the patient and his family. They voiced understanding, their questions were answered, and they wished to proceed. Patient signed consent in hospital room. If patient unstable in OR, may require damage control procedure, will transfer to ICU post op. - NG above diaphragm in hiatal hernia on CXR, will reposition in OR 2. KSENIA, urinary retention 4L? given in ED. Record indicates 3L boluses (1LR, 2NS) and 2 orders for IVF in ED, one order for IVF on floor - Pruett catheter in place 3. elevated lactate level - improved with IVF last night, increased again this AM. 3. constipation - consider suppository vs enema in AM given several day h/o constipation prior to admission, patient states last BM was 4 days prior to presentation. 3. Hypertension, asthma, anxiety, history of prostate cancer, hyperlipidemia, GERD, gout -Due to the patient's multiple medical comorbidities, patient admitted to medicine. Appreciate recommendations. Patient wishes to be DNAR/DNI; he clearly articulates this wish to me and states he's previously signed a DNR. Family updated on plan of care. Primary medicine team (Dr. Slick Reyes) updated on plan of care. Due to the patient's tenuous status, I have asked my partner, Dr. Damien Campa to assist with the surgery.
--- NOTE | 2025-07-15 08:49 | PROVIDER PROGRESS NOTE ---
Subjective Prog Note Date Prog Note Date: 07/15/25 Prog Note Time: 08:49 Subjective Subjective: Patient seen this morning, continues to be critically ill. He is continue to have abdominal pain. It is not responding to parenteral analgesia. He has not been receiving adequate narcotic overnight. Discussed case with surgery. They opted to take him back to the OR earlier this morning. He had a rising leukocytosis and softening pressures. He is now in septic shock. He was found in the OR to have several feet of colon. This was removed and he now has an ostomy in place. He remains critically ill. He is sedated and intubated in the ICU. Started on pressors. Discussed his case with his family. Extensive conversation with family after surgery. The patient spoke to Dr. Sharmaine Reyes last night and was very adamant that he did not want to have resuscitative efforts at that time. I discussed with his son and his at bedside. He is is obviously hoping that he gets better, She is bargaining and grasping for hope. After several reiteration's, we did clarify that if he were to get worse to the point where he dies it would be best to allow him a natural . We will keep doing all we can to avoid that unfortunate situation. His son agrees that his dad would not want to be on life support for prolonged period of time. Patient was made DNR. Current Medications Current Medications Current Medications: Current Medications Generic Name Dose Route Start Last Admin Trade Name Freq PRN Reason Stop Dose Admin Acetaminophen 650 mg 07/15/25 00:52 Acetaminophen 325 Mg Tablet PO Q6H PRN pain, fever Amlodipine Besylate 5 mg 07/15/25 09:00 Amlodipine 5 Mg Tablet PO DAILY TOMY Atorvastatin Calcium 10 mg 07/15/25 09:00 Atorvastatin 10 Mg Tablet PO DAILY TOMY Benzonatate 100 mg 07/15/25 00:52 Benzonatate 100 Mg Capsule PO TID PRN Cough Doxazosin Mesylate 8 mg 07/15/25 09:00 Doxazosin 4 Mg Tablet PO BID TOMY Lactated Ringer's 1,000 mls @ 125 mls/hr 07/15/25 01:00 07/15/25 03:27 Lr IV 125 mls/hr .Q8H TOMY Administration Lisinopril 10 mg 07/15/25 09:00 Lisinopril 5 Mg Tablet PO DAILY [facility] Morphine Sulfate 2 mg 07/15/25 08:00 Morphine 2 Mg/Ml Carpuject IVP Q2HR PRN pain Ondansetron HCl 4 mg 07/15/25 06:58 Ondansetron 4 Mg/2 Ml Vial IVP Q6HR PRN Nausea / Vomiting Pantoprazole Sodium 40 mg 07/15/25 09:00 Pantoprazole 40 Mg Tablet PO DAILY [facility] Objective Vital Signs/Intake & Output Vital Signs: Vital Signs x48h Temp Pulse Pulse Resp BP BP Pulse Ox 07/15/25 08:13 36.7 C 90 28 H 92/50 L 93 07/15/25 07:01 36.6 C 90 24 90/53 L 93 07/15/25 06:20 90/50 L 07/15/25 05:52 87/48 L 07/15/25 05:50 89/48 L 07/15/25 05:15 71/46 L 07/15/25 03:05 97 22 92/50 L 97 07/15/25 03:04 36.5 C 96 22 107/66 94 07/15/25 02:00 98 20 94/52 L 97 O2 Flow Rate 07/15/25 08:13 3 07/15/25 07:01 3 07/15/25 06:20 07/15/25 05:52 07/15/25 05:50 07/15/25 05:15 07/15/25 03:05 2 07/15/25 03:04 2 07/15/25 02:00 2 Intake & Output: Intake & Output 07/12/25 07/13/25 07/14/25 07/15/25 23:59 23:59 23:59 23:59 Intake Total 1999 3100 / 3100 Output Total 150 / 150 Balance 1999 2950 / 2950 Weight (kg) 100.5 kg 100.5 kg Objective Comments/Other: GEN: Intubated and sedated. HEENT: NC/AT, normal appearance of external ears and nose. Moist mucus membranes Cardiac: Regular rate and rhythm, no murmurs. No appreciable murmurs Pulm: Coarse ronchi diffusely, gurgling breaths prior to intubation. Abdomen: Midline incision is well approximated and dressed. Ostomy in place in R abdomen. NISREEN drain in left abdomen. Less distended. Soft. Extremeties: Palable pulses bilaterally Lab Results 07/15/25 13:56 07/15/25 13:56 Other Labs: Lab Results x24hrs 07/15/25 07/15/25 07/14/25 Range/Units 07:08 04:17 23:00 WBC 29.5 H (4.8-10.8) x10^3/uL RBC 4.40 L (4.70-6.10) 10^6/uL Hgb 14.0 (14.0-18.0) g/dL Hct 44.5 (42.0-52.0) % MCV 101.1 H (80.0-94.0) fL MCH 31.8 H (27.0-31.0) pg MCHC 31.5 L (32.0-36.0) g/dL RDW 13.3 (12.0-15.0) % Plt Count 321 (130-450) 10^3/uL MPV 10.2 (7.4-11.4) fL Neut # (Auto) 27.2 H (1.5-6.6) 10^3/uL Lymph # (Auto) 0.4 L (1.5-3.5) 10^3/uL Fisher # (Auto) 1.6 H (0.0-1.0) 10^3/uL Eos # (Auto) 0.0 (0.0-0.7) 10^3/uL Baso # (Auto) 0.1 (0.0-0.1) 10^3/uL Absolute Nucleated RBC 0.00 x10^3/uL Band Neuts % (Manual) Not Reportable Abnorm Lymph % (Manual) Not Reportable Nucleated RBC % 0.0 /100WBC Neutrophils # (Manual) Not Reportable Lymphocytes # (Manual) Not Reportable Monocytes # (Manual) Not Reportable Eosinophils # (Manual) Not Reportable Basophils # (Manual) Not Reportable Differential Comment MANUAL=AUTO DIFF Manual Slide Review WBC Morphology NORMAL APPEARANCE (NORMAL) Platelet Estimate NORMAL (130-450,000) (NORMAL) Platelet Morphology NORMAL APPEARANCE (NORMAL) RBC Morph Micro Appear NORMAL APPEARANCE (NORMAL) Sodium 138 (135-145) mmol/L Potassium 4.7 H (3.5-4.5) mmol/L Chloride 109 (101-111) mmol/L Carbon Dioxide 23 (21-32) mmol/L Anion Gap 6.0 (6-13) BUN 28 H (6-20) mg/dL Creatinine 1.6 H (0.6-1.3) mg/dL Estimated GFR (MDRD) 41 L (>89) Glucose 116 H (74-104) mg/dL Lactic Acid 2.4 H (0.5-2.2) mmol/L Calcium 7.8 L (8.5-10.3) mg/dL Magnesium 2.5 H (1.7-2.3) mg/dL Total Bilirubin 0.9 (0.2-1.0) mg/dL AST 17 (10-42) IU/L ALT 16 (10-60) IU/L Alkaline Phosphatase 37 L (42-121) IU/L Total Protein 5.5 L (6.4-8.9) g/dL Albumin 3.3 (3.2-5.5) g/dL Globulin 2.2 (2.1-4.2) g/dL Albumin/Globulin Ratio 1.5 (1.0-2.2) Triglycerides 65 mg/dL Cholesterol 104 ( - 200) mg/dL LDL Cholesterol, Calc 55 ( - 129) mg/dL VLDL Cholesterol 13 mg/dL HDL Cholesterol 36 L (60 - ) mg/dL LDL/HDL Ratio 1.5 (<3.6) Cholesterol/HDL Ratio 2.9 (<5.0) Lipase (11-82) U/L TSH 3.58 (0.34-5.60) uIU/mL Urine Color YELLOW Urine Clarity CLEAR (CLEAR) Urine pH 7.0 (5.0-7.5) PH Ur Specific Jamison 1.010 (1.002-1.030) Urine Protein NEGATIVE (NEGATIVE) mg/dL Urine Glucose (UA) NEGATIVE (NEGATIVE) mg/dL Urine Ketones NEGATIVE (NEGATIVE) mg/dL Urine Occult Blood NEGATIVE (NEGATIVE) Urine Nitrite NEGATIVE (NEGATIVE) Urine Bilirubin NEGATIVE (NEGATIVE) Urine Urobilinogen 0.2 (NORMAL) (NORMAL) E.U./dL Ur Leukocyte Esterase NEGATIVE (NEGATIVE) Ur Microscopic Review NOT INDICATED Urine Culture Comments NOT INDICATED 07/14/25 07/14/25 07/14/25 Range/Units 22:42 18:38 18:05 WBC 27.4 H 20.2 H (4.8-10.8) x10^3/uL RBC 4.54 L 4.78 (4.70-6.10) 10^6/uL Hgb 14.5 15.2 (14.0-18.0) g/dL Hct 44.2 46.1 (42.0-52.0) % MCV 97.4 H 96.4 H (80.0-94.0) fL MCH 31.9 H 31.8 H (27.0-31.0) pg MCHC 32.8 33.0 (32.0-36.0) g/dL RDW 13.2 13.1 (12.0-15.0) % Plt Count 317 318 (130-450) 10^3/uL MPV 9.9 10.6 (7.4-11.4) fL Neut # (Auto) 25.6 H 18.3 H (1.5-6.6) 10^3/uL Lymph # (Auto) 0.5 L 1.1 L (1.5-3.5) 10^3/uL Fisher # (Auto) 1.2 H 0.6 (0.0-1.0) 10^3/uL Eos # (Auto) 0.0 0.0 (0.0-0.7) 10^3/uL Baso # (Auto) 0.1 0.1 (0.0-0.1) 10^3/uL Absolute Nucleated RBC 0.00 0.00 x10^3/uL Band Neuts % (Manual) Not Reportable Not Reportable Abnorm Lymph % (Manual) Not Reportable Not Reportable Nucleated RBC % 0.0 0.0 /100WBC Neutrophils # (Manual) Not Reportable Not Reportable Lymphocytes # (Manual) Not Reportable Not Reportable Monocytes # (Manual) Not Reportable Not Reportable Eosinophils # (Manual) Not Reportable Not Reportable Basophils # (Manual) Not Reportable Not Reportable Differential Comment MANUAL=AUTO DIFF MANUAL=AUTO DIFF Manual Slide Review Indicated Indicated WBC Morphology (NORMAL) Platelet Estimate NORMAL (130-450,000) NORMAL (130-450,000) (NORMAL) Platelet Morphology NORMAL APPEARANCE NORMAL APPEARANCE (NORMAL) RBC Morph Micro Appear NORMAL APPEARANCE NORMAL APPEARANCE (NORMAL) Sodium 137 136 (135-145) mmol/L Potassium 4.1 3.9 (3.5-4.5) mmol/L Chloride 108 103 (101-111) mmol/L Carbon Dioxide 23 24 (21-32) mmol/L Anion Gap 6.0 9.0 (6-13) BUN 22 H 21 H (6-20) mg/dL Creatinine 1.5 H 1.5 H (0.6-1.3) mg/dL Estimated GFR (MDRD) 44 L 44 L (>89) Glucose 138 H 160 H (74-104) mg/dL Lactic Acid 1.6 2.3 H (0.5-2.2) mmol/L Calcium 7.9 L 8.9 (8.5-10.3) mg/dL Magnesium (1.7-2.3) mg/dL Total Bilirubin 1.0 (0.2-1.0) mg/dL AST 19 (10-42) IU/L ALT 19 (10-60) IU/L Alkaline Phosphatase 51 (42-121) IU/L Total Protein 6.6 (6.4-8.9) g/dL Albumin 4.0 (3.2-5.5) g/dL Globulin 2.6 (2.1-4.2) g/dL Albumin/Globulin Ratio 1.5 (1.0-2.2) Triglycerides mg/dL Cholesterol ( - 200) mg/dL LDL Cholesterol, Calc ( - 129) mg/dL VLDL Cholesterol mg/dL HDL Cholesterol (60 - ) mg/dL LDL/HDL Ratio (<3.6) Cholesterol/HDL Ratio (<5.0) Lipase 25 (11-82) U/L TSH (0.34-5.60) uIU/mL Urine Color Urine Clarity (CLEAR) Urine pH (5.0-7.5) PH Ur Specific Jamison (1.002-1.030) Urine Protein (NEGATIVE) mg/dL Urine Glucose (UA) (NEGATIVE) mg/dL Urine Ketones (NEGATIVE) mg/dL Urine Occult Blood (NEGATIVE) Urine Nitrite (NEGATIVE) Urine Bilirubin (NEGATIVE) Urine Urobilinogen (NORMAL) E.U./dL Ur Leukocyte Esterase (NEGATIVE) Ur Microscopic Review Urine Culture Comments Diagnostic Imaging Diagnostic Imaging Results: positive Final report reviewed and Read independently Diagnostic Imaging Comments: Chest x-ray and abdominal x-ray reviewed. NGT in place in the stomach. Central line in place in right atria. Sepsis Event Note (H) Evaluation Current Stage of Sepsis: Septic shock Possible source of Sepsis: positive GI tract/intra-abdominal Sepsis Criteria Sepsis Criteria: WBC count greater than 10% bands, WBC count greater than 12,000 or less than 4000, SBP less than 90 mmHg and Renal: urine output less than 0.5ml/kg/hr for 2 hours or creatinine gr Assessment/Plan Problem List (1) Septic shock: Impression: Patient on septic shock. Requiring pressors postoperatively. Was having softening pressors before going to the OR. Received 4 L of fluid in the OR. He is starting to make urine now. - ABG, CBC, CMP now - Lactate now - Continue vasopressin and Levophed, wean Levophed first - Started on meropenem - Follow drain output, appreciate general surgery - Continue sedation with fentanyl, loading push then drip - RT following (2) Metabolic acidosis: Impression: Suspect mostly lactate driven given his bowel ischemia. pH intraoperatively 7.18. Arterial line in place. Anion gap is nml on repeat labs this afternoon. Lactate only mildly elevated. Metabolic acidosis - Management as above - Will repeat 2 amps of bicarb - Pressor support as above (3) KSENIA (acute kidney injury): Impression: Most likely ATN from his septic state. - Will trend creatinine as above. - Avoid nephrotoxins as able - Support perfusion with pressors as above - If not recovering, will need transfer for consideration of dialysis - Would strongly consider revisiting goals of care at that point. (4) Ischemia, bowel: (5) Bowel obstruction: Qualifiers: Intestinal obstruction extent: partial Intestinal obstruction type: u nspecified Qualified Code(s): K56.600 - Partial intestinal obstruction, unspecified as to cause (6) Left inguinal hernia: Impression: Persistent left inguinal hernia. Suspect incarceration was the main driver messenger of his bowel ischemia as above. - Appreciate general surgery - They are deferring repair of his hernia at this time. - Patient remains at risk of incarceration, monitor closely when he starts waking up - NPO until return of bowel function, NGT in place (7) Hypertension: Impression: Chronic problem. And septic shock as above. Prior antihypertensives on hold. (8) Asthma: Impression: Noted, this may make extubation more difficult. - Appreciate RT involvement - Resume TRAFFIC CLERK inhalers when clinically appropriate (9) Anxiety: Impression: Prior to his hospitalization patient is on 0.125 to 0.25 mg p.o. as needed alprazolam. - Benzodiazepine pushes available for signs of discomfort, but will attempt to treat with analgesia as above. (10) BPH (benign prostatic hyperplasia): Impression: Currently NPO, will resume doxazosin once taking oral intake. I spent a total of 63 minutes in the care of this patient today. This time was spent reviewing his labs, vital signs, imaging, interviewing and examining the patient, and discussing his plan of care with him and his other care providers. Extensive discussions with surgery today. 58 minutes of critical care time inclusive of advance care planning. Patient was made DNR today.
--- NOTE | 2025-07-15 08:59 | ANESTHESIA PROCEDURE NOTE ---
Pre-Anesthesia VS, & Labs Diagnosis Surgical Diagnosis:: incarcerated inguinal hernia Procedure Procedure: exploratory laparotomy, repair of inguinal hernia, possible bowel resection Vitals Vital Signs: Temp Pulse Resp BP Pulse Ox O2 Flow Rate 36.7 C 90 28 H 92/50 L 93 3 07/15/25 08:13 07/15/25 08:13 07/15/25 08:13 07/15/25 08:13 07/15/25 08:13 07/15/25 08:13 Lab Results Current Lab Results: Laboratory Tests 07/15/25 07:08: Lactic Acid 2.4 H 07/15/25 04:17: WBC 29.5 H, RBC 4.40 L, Hgb 14.0, Hct 44.5, MCV 101.1 H, MCH 31.8 H, MCHC 31.5 L, RDW 13.3, Plt Count 321, MPV 10.2, Neut # (Auto) 27.2 H, L ymph # (Auto) 0.4 L, Pitt # (Auto) 1.6 H, Eos # (Auto) 0.0, Baso # (Auto) 0.1, Absolute Nucleated RBC 0.00, Band Neuts % (Manual) Not Reportable, Abnorm Lymph % (Manual) Not Reportable, Nucleated RBC % 0.0, Neutrophils # (Manual) Not Reportable, Lymphocytes # (Manual) Not Reportable, Monocytes # (Manual) Not Reportable, Eosinophils # (Manual) Not Reportable, Basophils # (Manual) Not Reportable, Differential Comment MANUAL=AUTO DIFF, WBC Morphology NORMAL APPEARANCE, Platelet Estimate NORMAL (130-450,000), Platelet Morphology NORMAL APPEARANCE, RBC Morph Micro Appear NORMAL APPEARANCE, Sodium 138, Potassium 4.7 H, Chloride 109, Carbon Dioxide 23, Anion Gap 6.0, BUN 28 H, Creatinine 1.6 H, E stimated GFR (MDRD) 41 L, Glucose 116 H, Calcium 7.8 L, Magnesium 2.5 H, Total Bilirubin 0.9, AST 17, ALT 16, Alkaline Phosphatase 37 L, Total Protein 5.5 L, Albumin 3.3, Globulin 2.2, Albumin/Globulin Ratio 1.5, Triglycerides 65, Cholesterol 104, LDL Cholesterol, Calc 55, VLDL Cholesterol 13, HDL Cholesterol 36 L, LDL/HDL Ratio 1.5, Cholesterol/HDL Ratio 2.9, TSH 3.58 07/14/25 22:42: WBC 27.4 H, RBC 4.54 L, Hgb 14.5, Hct 44.2, MCV 97.4 H, MCH 31.9 H, MCHC 32.8, RDW 13.2, Plt Count 317, MPV 9.9, Neut # (Auto) 25.6 H, Lymph # (Auto) 0.5 L, Pitt # (Auto) 1.2 H, Eos # (Auto) 0.0, Baso # (Auto) 0.1, Absolute Nucleated RBC 0.00, Band Neuts % (Manual) Not Reportable, Abnorm Lymph % (Manual) Not Reportable, Nucleated RBC % 0.0, Neutrophils # (Manual) Not Reportable, Lymphocytes # (Manual) Not Reportable, Monocytes # (Manual) Not Reportable, Eosinophils # (Manual) Not Reportable, Basophils # (Manual) Not Reportable, Differential Comment MANUAL=AUTO DIFF, Manual Slide Review Indicated, Platelet Estimate NORMAL (130-450,000), Platelet Morphology NORMAL APPEARANCE, RBC Morph Micro Appear NORMAL APPEARANCE, Sodium 137, Potassium 4.1, Chloride 108, Carbon Dioxide 23, Anion Gap 6.0, BUN 22 H, Creatinine 1.5 H, E stimated GFR (MDRD) 44 L, Glucose 138 H, Lactic Acid 1.6, Calcium 7.9 L 07/14/25 18:38: Sodium 136, Potassium 3.9, Chloride 103, Carbon Dioxide 24, Anion Gap 9.0, BUN 21 H, Creatinine 1.5 H, Estimated GFR (MDRD) 44 L, Glucose 160 H, Lactic Acid 2.3 H, Calcium 8.9, Total Bilirubin 1.0, AST 19, ALT 19, Alkaline Phosphatase 51, Total Protein 6.6, Albumin 4.0, Globulin 2.6, Albumin/Globulin Ratio 1.5, Lipase 25 07/14/25 18:05: WBC 20.2 H, RBC 4.78, Hgb 15.2, Hct 46.1, MCV 96.4 H, MCH 31.8 H , MCHC 33.0, RDW 13.1, Plt Count 318, MPV 10.6, Neut # (Auto) 18.3 H, Lymph # (Auto) 1.1 L, Pitt # (Auto) 0.6, Eos # (Auto) 0.0, Baso # (Auto) 0.1, Absolute Nucleated RBC 0.00, Band Neuts % (Manual) Not Reportable, Abnorm Lymph % (Manual) Not Reportable, Nucleated RBC % 0.0, Neutrophils # (Manual) Not Reportable, Lymphocytes # (Manual) Not Reportable, Monocytes # (Manual) Not Reportable, Eosinophils # (Manual) Not Reportable, Basophils # (Manual) Not Reportable, Differential Comment MANUAL=AUTO DIFF, Manual Slide Review Indicated, Platelet Estimate NORMAL (130-450,000), Platelet Morphology NORMAL APPEARANCE, RBC Morph Micro Appear NORMAL APPEARANCE 07/15/25 04:17 07/15/25 04:17 Meds/Allgy Home Medications Ambulatory Orders Medication Instructions Recorded Confirmed amlodipine 5 mg tablet 5 mg PO DAILY 01/18/2507/14 doxazosin 8 mg tablet 8 mg PO BID 01/18/25 5 fluticasone 500 mcg-salmeterol 50 1 inh inhalation PRN PRN wheezing 01/18/25 07/14/25 mcg/dose blistr powdr for inhalation (Wixela Inhub) lisinopril 10 mg tablet 10 mg PO DAILY 01/18/2506/19 pantoprazole 40 mg tablet,delayed 40 mg PO DAILY 01/1807/14/25 release simvastatin 20 mg tablet 20 mg PO DAILY 01/18/2506/19 trazodone 50 mg tablet 25 mg PO DAILY 01/18/2506/19 alprazolam 0.25 mg tablet 0.125 - 0.25 mg PO DAILY PRN 07/14/25 07/14/25 anxiety aspirin 81 mg capsule 81 mg PO DAILY 07/14/2506/19 colchicine 0.6 mg capsule See Rx Instructions PO DAILY 07/14/25 07/14/25 hydrocodone 5 mg-acetaminophen 325 1 tab PO Q4H PRN pa in 07/14/25 07/14/25 mg tablet Allergies Allergies Allergy/AdvReac Type Severity Reaction Status Date / Time No Known Drug Allergies Allergy Verified 07/14/25 17:53 PFSH Active Problems All Active Problems (Updated 07/14/25 @ 23:36 by Mariya Reyes MD) Gout (Chronic) Vomiting (Acute) Incarcerated left inguinal hernia (Acute) Anxiety (Chronic) Asthma (Chronic) Hypertension (Chronic) Bowel obstruction (Acute) Left inguinal hernia (Acute) Medical History Medical History Esophageal obstruction due to food impaction History of prostate cancer (~2002) s/p brachytherapy Surgical History Surgical History H/O sinus surgery History of colonoscopy History of tonsillectomy Social History Social History (Updated 07/15/25 @ 03:16 by Zohaib Coffman DO) Smoking Status: Unknown if ever smoked If you are a former smoker, when did you quit? (Date/Year): 1999 Second hand tobacco smoke exposure: No Do you dip or chew tobacco?: No Do you vape?: No Patient requests smoking cessation consult: No Initiate information on smoking cessation: No Level: Independent Do you feel safe in your home environment?: Yes History of physical, verbal, emotional, or financial abuse?: No POLST POLST CPR Status: Do Not Attempt Resuscitation (DNAR) / Allow Natural Anesthesia Exam (Expanded) Exam General: Alert, Oriented x3 and Cooperative Dental: WNL Mouth Opening: Greater than 4 Fingerbreadths Mallampati classification: II Thyromental Distance: greater than 6 cm Respiratory: Lungs clear Cardiovascular: Regular rate Exam Exam Vital Signs: Vital Signs x48h Temp Pulse Pulse Resp BP BP Pulse Ox 07/15/25 08:13 36.7 C 90 28 H 92/50 L 93 07/15/25 07:01 36.6 C 90 24 90/53 L 93 07/15/25 06:20 90/50 L 07/15/25 05:52 87/48 L 07/15/25 05:50 89/48 L 07/15/25 05:15 71/46 L 07/15/25 03:05 97 22 92/50 L 97 07/15/25 03:04 36.5 C 96 22 107/66 94 07/15/25 02:00 98 20 94/52 L 97 O2 Flow Rate 07/15/25 08:13 3 07/15/25 07:01 3 07/15/25 06:20 07/15/25 05:52 07/15/25 05:50 07/15/25 05:15 07/15/25 03:05 2 07/15/25 03:04 2 07/15/25 02:00 2 Plan Problem List (1) Left inguinal hernia: (2) Bowel obstruction: Qualifiers: Intestinal obstruction extent: partial Intestinal obstruction type: u nspecified Qualified Code(s): K56.600 - Partial intestinal obstruction, unspecified as to cause (3) Hypertension: (4) Asthma: (5) Anxiety: Plan 89-year-old gentleman with: 1. Left inguinal hernia, incarcerated, causing bowel obstruction The hernia which appeared incarcerated on CT, was reduced by the emergency room provider. After reduction, the patient continues to have some abdominal discomfort. - I suspect his obstruction will resolve now that the hernia has been reduced. He continues to have nausea and is distended. An NG tube has been ordered. If output is low overnight. Plan to clamp in the morning. - He has no peritoneal signs or need for emergent surgical intervention at this time. I do recommend close outpatient follow-up and elective hernia repair. The benefit to elective hernia repair is less risk for bacterial translocation thereby reducing the risk for mesh placement, which would allow for a more robust repair. I discussed this with the patient and his and they are agreeable to this plan of care. 2. KSENIA, urinary retention The patient has received 2.5 L of fluid since his presentation. Repeat labs are pending. - Hoyos catheter placed. 3. elevated lactate level - likely due to dehydration. Rechecking lactate level now. 3. constipation - consider suppository vs enema in AM given several day h/o constipation prior to admission 3. Hypertension, asthma, anxiety, history of prostate cancer, hyperlipidemia, GERD, gout -Due to the patient's multiple medical comorbidities, I have recommended that he be admitted by the medicine team for observation. I appreciate their recommendations in managing his chronic comorbidities. Patient wishes to be DNAR/DNI; he clearly articulates this wish to me and states he's previously signed a DNR. I anticipate the patient will likely improve significantly overnight, likely discharge tomorrow if he is able to tolerate a diet and his pain is improved. If he remains unsteady on his feet, he may need PT evaluation. His is worried about him getting around at home as she has limited mobility herself. I discussed the above plan of care with the patient, his , and the ED provider (Dr. Reyes). Plan Anesthesia Type: General and Transverse Abdominis Plane (TAP) Block Consent for Procedure(s) Verified and Reviewed: Yes Code Status: Attempt Resuscitation (wished to suspend DNR for perioperative period) ASA Classification ASA classification: 3-Severe systemic disease Is this case an emergency?: Yes
[2025-07-15] MEDS ORDERED: LACTOBACILLUS RHAMNOSUS GG CAPSULE PO SCH (09:00)
[2025-07-15] MEDS ORDERED: PHENYLEPHRINE 10 MG/ML VIAL ONE ×2 (09:01→09:54)
[2025-07-15] MEDS ORDERED: VASOPRESSIN 20 UNIT/ML VIAL ONE ×2 (09:27→09:53)
[2025-07-15] MEDS ORDERED: DEXAMETHASONE 4 MG/ML VIAL ONE (09:54)
[2025-07-15] MEDS ORDERED: fentaNYL 100 MCG/2 ML VIAL ONE (09:54)
[2025-07-15] MEDS ORDERED: PROPOFOL 200 MG/20 ML VIAL IVP ONE (09:54)
[2025-07-15] MEDS ORDERED: ROCURONIUM 50 MG/5 ML VIAL ONE (09:54)
[2025-07-15] MEDS ORDERED: ONDANSETRON 4 MG/2 ML VIAL ONE (09:54)
[2025-07-15] MEDS ORDERED: ePHEDrine 50 MG/ML VIAL IVP ONE (09:55)
--- NOTE | 2025-07-15 10:14 | ANESTHESIA PROCEDURE NOTE ---
Diagnosis Diagnosis: Bowel Obstruction, Hypotension Procedure Procedure: Left radial arterial catheter insertion Consent for Procedure(s) Verified and Reviewed: Yes Vitals Height and Weight: Height 5 ft 8 in Body Mass Index 34.7 Vital Signs: Temp Pulse Resp BP Pulse Ox O2 Flow Rate 36.7 C 90 28 H 92/50 L 93 3 07/15/25 08:13 07/15/25 08:13 07/15/25 08:13 07/15/25 08:13 07/15/25 08:13 07/15/25 08:13 Allergies Allergies: Allergies No Known Drug Allergies Allergy (Verified 07/14/25 17:53) Location Location: OR3 ASA ASA classification: 3-Severe systemic disease Is this case an emergency?: Yes Monitoring Anes. Monitoring and Equipment: Non-invasive BP, Pulse oximetery and Sterile prep and drape Procedure Notes Procedure Notes: Left wrist prepped in sterile fashion. Left radial artery identified on ultrasound. Needle inserted, catheter advanced over wire, needle and wire withdrawn. Sutured in place.
--- NOTE | 2025-07-15 10:18 | XRAY Report ---
PROCEDURE: XR Chest 1V INDICATIONS: HYPOTENSION TECHNIQUE: One view of the chest was acquired. COMPARISON: 07/14/2025 FINDINGS: Surgical changes and devices: Enteric tube curls gradually in the lower mediastinum and the distal end remains above the diaphragm, stable compared to prior. Lungs and pleura: Diffuse thickening of the interstitial markings present previously. Small bilateral pleural effusions, left greater than right and bibasilar opacities. Mediastinum: Stable cardiomediastinal contour without significant central vascular congestion. Bones and chest wall: No suspicious bony lesions. Overlying soft tissues appear unremarkable. IMPRESSION: Stable position of enteric tube above the diaphragm. Probably within the hiatal hernia Stable diffuse interstitial thickening and bibasilar opacities. Most likely due to low lung volumes. Consider volume overload, less likely aspiration. Reviewed by: Milagro Garcia MD on 07/15/2025 10:15 AM PDT Approved by: Milagro Garcia MD on 07/15/2025 10:15 AM PDT Station ID: [id number]
--- NOTE | 2025-07-15 10:19 | ANESTHESIA PROCEDURE NOTE ---
Anesth Central Line Template Central Line Procedure Date: 07/15/25 Central Line Preparation: Consent Obtained, Time out completed, Ultrasound used and Sterile prep and drape Central line location: Right IJ Central line type: Triple lumen Central line aftercare: Chlorhexidine disc placed, Secured, No complications and Other (pending imaging for placement confirmation)
--- NOTE | 2025-07-15 10:22 | XRAY Report ---
PROCEDURE: XR Abdomen 1 V INDICATIONS: abdominal pain, hypotension TECHNIQUE: 1 view of the abdomen were acquired. COMPARISON: CT abdomen pelvis 07/14/2025 FINDINGS: Surgical changes and devices: Monitoring wires are present in the epigastric region. Bowel: Dilated, air-filled bowel loops in the abdomen, most prominent, is the ascending colon. The cecum measures roughly 14.3 cm in diameter. This has slightly increased compared to the prior day. No visible extraluminal gas. Soft tissues: No visible masses; visualized solid organ contours appear normal in size. No suspicious abdominal calcifications. Bones: No suspicious bony abnormalities. IMPRESSION: Progressive dilatation of the proximal colon suggesting ileus and/or distal obstruction. Reviewed by: Milagro Garcia MD on 07/15/2025 10:19 AM PDT Approved by: Milagro Garcia MD on 07/15/2025 10:19 AM PDT Station ID: [id number]
[2025-07-15 11:06] LABS: ABG BASE EXCESS -12.6 mmol/L (-2.0-3.0); ABG OXYGEN SATURATION 100 % (95-98); ABG PCO2 43 mmHg (34-45); ABG PO2 329 mmHg (83-108); ABG TCO2 17.3 mmol/L (21.0-29.0)
[2025-07-15 11:07] LABS: ABG HCO3 16.0 mmol/L (22.0-26.0)
[2025-07-15 11:12] LABS: ABG PH 7.18 (7.35-7.45)
[2025-07-15] MEDS ORDERED: SODIUM BICARBONATE ABBOJECT 50 MEQ/50 ML SYRINGE ONE (11:40)
[2025-07-15] MEDS ORDERED: MEROPENEM 1 GM in SODIUM CHLORIDE 0.9% MINIBAG 100 ML IV ONE (11:48)
[2025-07-15] MEDS: DOXAZOSIN 4 MG TABLET PO SCH (13:16)
[2025-07-15] MEDS: ATORVASTATIN 10 MG TABLET PO SCH (13:16)
[2025-07-15] MEDS: NOREPINEPHRINE/0.9 % NS 8 MG/250 ML BAG IV SCH (13:17)
[2025-07-15] MEDS: PANTOPRAZOLE 40 MG TABLET PO SCH (13:17)
[2025-07-15 13:18] LABS: ABG PCO2 36 mmHg (34-45); ABG PO2 72 mmHg (83-108)
[2025-07-15 13:19] LABS: ABG BASE EXCESS -14.7 mmol/L (-2.0-3.0); ABG FRACTION OF INSPIRED O2 50.00; ABG HCO3 13.8 mmol/L (22.0-26.0); ABG MODE OF VENTILATION ASSIST/CONTROL; ABG OXYGEN SATURATION 93 % (95-98); ABG RESPIRATORY RATE 16 b/min; ABG TCO2 14.9 mmol/L (21.0-29.0)
[2025-07-15 13:21] LABS: ABG PH 7.19 (7.35-7.45)
--- NOTE | 2025-07-15 13:30 | XRAY Report ---
PROCEDURE: XR Chest for Line Placement INDICATIONS: central line placement TECHNIQUE: One view of the chest was acquired. COMPARISON: Same day radiograph FINDINGS AND IMPRESSION: Interval placement of right central line, with tip projecting over the mid SVC. No definite pneumothorax. Enteric tube terminates below the diaphragm. ET tube tip projects over the lower trachea. Left mild to moderate pleural effusion is probably increased. Interstitial opacities also present likely edema versus multifocal infection. Consider future imaging surveillance to assess for resolution. Low lung volumes. Reviewed by: Lev Alexis MD on 07/15/2025 1:26 PM PDT Approved by: Lev Alexis MD on 07/15/2025 1:26 PM PDT Station ID: [id number]
[2025-07-15] MEDS: fentaNYL 2,500 MCG/250 ML 2,500 MCG/250 ML BAG IV SCH (13:37)
--- NOTE | 2025-07-15 13:43 | OPERATIVE REPORT ---
Operative Report General Admit Date: 07/15/25 Procedure Data: Operation Date: 07/15/25 08:30 Proposed Procedures p Exploratory Laparotomy POSSIBLE BOWEL RESECTION, HERNIA REPAIR(Not Applicable) - Mariya Reyes MD Actual Procedures p Extended left hemicolectomy with end colostomy, luna's and partial omentectomy(Not Applicable) - Damien Campa MD Pre-Op Diagnosis: incarcerated inguinal hernia Anesthesia Type General Case Staff Anesthesia Provider: Cassie Jensen Anesthesia Provider: João Garnett Assisting Provider: Mariya Reyes Assisting Provider: Tunde Ramos Case Times Procedure Start: 07/15/25 10:06 Procedure End: 07/15/25 12:22 Time out: 07/15/25 10:05 Other Other Information/Narrative: Patient Name: Harvinder Wayne Patient date: 1935 Patent MR number: [id number] Date of procedure: 07/15/2025 Preoperative Diagnosis/Indications: Abdominal catastrophe Postoperative Diagnosis: Necrotic transverse and left colon with marked colonic distention Procedure: Extended colectomy to include the transverse colon and left colon, partial omentectomy, end colostomy, Hurst's, umbilical herniorrhaphy CPT 35207, 83251 (check to see if billable separately), 71834 (unlikely billable) Fluids: 5000 mL EBL: 100 mL Urine output: 150 mL of dark urine Drains: 19 Israeli Ranulfo drain placed in the left gutter Findings: Necrotic transverse and left colon with marked colonic distention Complications: None Surgeon/Dictated by: Damien Campa MD [employer] Surgeon #1: Sharmaine Reyes MD [employer] surgeon #2: Tunde Bowser MD Easter Bunny: Cassie Jensen CRNA Anesthesia type: General Endotracheal +30 mL half percent Marcaine with epinephrine Procedure: After verbal and written informed consent was obtained detailing the operation, the alternatives the operation including no operation, risks of infection, bleeding requiring transfusion with its risks, and , the patient was brought urgently to the operative suite and placed supine on the operating table. Great care was taken to avoid pressure points to prevent pressure necrosis or nerve injury. Monitoring devices were applied along with TEDs and pneumatic compression stockings (to prevent DVT). An intravenous line was started and anesthesia was maintained throughout the case. The patient was monitored for cardiac, blood pressure, and oxygen saturation continuously. The patient received preoperative antibiotics (Ancef and Flagyl)for surgical prophylaxis. [], TABLE SAW OPERATOR sedated and anesthetized the patient for the entire procedure. The patient was prepped and draped in the usual sterile manner. A "time in" then confirmed that the patient was identified with 3 identifiers (name, date, and medical record number), the history and physical was updated and in the chart, the signed consent confirming the procedure was in the chart, the patient was in the correct position, the aforementioned prophylactic measures were in place or given, we had the correct personnel and equipment to complete the procedure and that anesthesia and the surgical team were given an opportunity to express any concerns. With the agreement of everyone in the room we proceeded with the operation. The abdomen was incised at the midline starting care home between the umbilicus and the xiphoid and taken down around the umbilicus on the left to care home between the pubis and the umbilicus using a 10 blade knife. Dissection was carried out down posteriorly through the subcutaneous tissues using Bovie electrocautery. The umbilical hernia (<3 cm) was noted and avoided with the initial incision. The fascia was grasped with toothed pickups and incised. Similarly, the peritoneum was grasped and incised gaining entry into the abdomen which returned some clear bilious colored fluid. The fascial and peritoneal incisions were then lengthened to the length of our skin incision. This was done using Bovie electrocautery. Great care was taken to protect the bowel underneath this with our hands. Upon entering the abdomen it was clear that there was necrotic bowel with the entirety of the transverse colon and left colon black. There was some patchy necrosis at the hepatic flexure. The sigmoid colon appeared normal. The cecum and ascending colon although markedly distended did appear to be normal. Although I did not run the small bowel it also appeared to be normal. The stomach is markedly distended and several attempts of placing nasogastric tube were unsuccessful. There is no obvious perforation of the colon but it was clear that it would only be a matter of time before the colon itself completely necrosed and perforated. Attachments of the colon to the omentum and the gastrocolic ligament were taken down using a combination of Bovie electrocautery as well as LigaSure. Dissection along the right line of Toldt freed much of the right colon and showed the proximal point of necrosis on the colon. This was just proximal to the hepatic flexure. Just proximal to this I placed a ZAINA 75 stapler with a blue load and fired it thus transecting the distal ascending colon. I then marched across the mesentery of the transverse colon taking great care to stay close to the colon using serial application of the Ligasure. Upon arrival at the left upper quadrant it was clear that additional dissection and freeing of the splenic flexure would be required. In order to ease our visualization and performance of the operation I freed the left colon and a majority of the sigmoid colon by dissecting along the left white line of Toldt using Bovie electrocautery. In this manner I was able to bring up the distal colon and into the wound and an area that was clearly viable at the proximal sigmoid colon/distal descending colon was chosen as the point of transection. I applied a ZAINA 75 stapler here and fired it thus transecting the colon. Now I had proximal and distal control of the colon with minimal spillage although there was some spillage from the staple line of the portion of the colon that was being resected. This was controlled with a [id number] 3-0 silk and copious irrigation was used to deal with the spillage. Now that the resection margins were defined we were able to go [id number] from proximal to distal and up into the left upper quadrant to free the splenic flexure. Much of this was done with finger dissection and Bovie electrocautery over said finger. Once the splenic flexure was freed and the mesentery could be seen clearly again I marched across the mesentery using serial application of LigaSure and the resected colon was removed from the operative field. Examination of the omentum showed that the inferior omentum was quite inflamed and had multiple defects and my concern was for a possible bowel obstruction following the operation so I transected the inferior aspect of the omentum using serial application of the LigaSure. There was no significant bleeding. This was sent along with the specimen for pathologic evaluation. At this point a point was picked in the left lower quadrant for placement of the 19 Israeli Ranulfo drain which was then directed up the left gutter. This was secured to the skin using a 3-0 silk which was [place]-sandaled about the drain. Ultimately this drain was placed to grenade suction. I then selected a site on the right side of the abdomen just slightly to the right and above the umbilicus for the colostomy. Circular incision was made with the aid of a 10 blade skin knife. Dissection down to the anterior fascia was completed using Bovie electrocautery. The anterior fascia was incised in the longitudinal fashion. The rectus muscle was opened using blunt dissection and the posterior fascia and peritoneum was similarly opened in a longitudinal fashion. This was widened to accept 2 of my fingers. There was clear that the massively distended ascending colon would not fit through this opening and as such after protecting the colon with blue towels a small enterotomy made at the staple line and a Yankauer sucker was used to to remove gas and some stool from the cecum and ascending colon. This decrease the distention in the colon enough to allow me to bring the colon through the defect in the anterior abdominal wall. The enterotomy was closed using an application of the ZAINA 75 stapler. The colon was then brought through the anterior abdominal wall defect with the aid of a Etta. Great care was taken to ensure that the colon itself was not twisted. The abdomen was then copiously irrigated using warm sterile saline. At this point in the case I thanked Dr. Reyes very much for her help in sooner after Dr. Ramos came in to help with closure. Please note that without the aid of these 2 surgeons who are both requested to be in the case this operation would have taken significantly longer with increased risk to the patient. With the aid of a Raphael fish retractor the fascia was then closed using a 2 oh looped PDS starting superiorly and inferiorly and running the suture to tie just above the umbilicus. In closing the fascia we repaired the umbilical hernia. After irrigating the subcutaneous tissues and the skin was approximated with skin jennifer. The drain was placed to grenade suction. The ostomy was then matured using 3-0 Vicryl sutures in an interrupted clockwise fashion. The initial sutures were at 3, 9, 6 and 12:00 and then sutures were placed in between these initial 4 sutures to complete the maturation. An ostomy appliance was applied. At this point a "timeout" was performed that confirmed that all counts were correct, the procedure that was performed, the blood loss, the IV fluids administered, the patient's condition and any concerns of the operating team had. Dressings were then applied. Having tolerated the procedure well, the patient was left intubated and taken to the ICU on pressors in critical condition. I then spoke with the patient's family notifying them of the patient's condition, the operative findings and the operation. Today's documentation has been created with the assistance of voice recognition software. Therefore, it may contain anomalous punctuation, anomalous independent mis-recognitions, word substitutions, insertions or omissions. Occasional wrong-word or phonetically similar substitutions may also occur all due to the inherent limitations of voice recognition software. I have attempted to correct the above but I recommend that the chart be read carefully to recognize, using context, where the substitutions, insertions or omissions may have occurred.
[2025-07-15] MEDS: VASOPRESSIN 20 UNIT in DEXTROSE 5% 99 ML IV STA (13:45)
--- NOTE | 2025-07-15 13:56 | XRAY Report ---
PROCEDURE: XR Chest for Line Placement INDICATIONS: Line placement TECHNIQUE: One view of the chest was acquired. COMPARISON: Earlier on 07/15/2025 FINDINGS: Surgical changes and devices: A right IJ line has been placed with its tip projecting to the distal SVC. An ET tube is been placed, with its tip projecting approximately 3.9 cm above the bridget. An NG tube is in satisfactory position. Lungs and pleura: Submaximal inspiration. Question developing interstitial pulmonary edema. Mild to moderate left pleural effusion. Left basilar atelectasis. Mediastinum: Mediastinal contours appear normal. Heart size is normal. Bones and chest wall: No suspicious bony lesions. Overlying soft tissues appear unremarkable. IMPRESSION: Lines and tubes in satisfactory position. Question developing congestive heart failure. Reviewed by: Yehuda La MD on 07/15/2025 1:53 PM PDT Approved by: Yehuda La MD on 07/15/2025 1:53 PM PDT Station ID: [id number]
[2025-07-15 14:03] LABS: HCT - HEMATOCRIT 38.2 % (42.0-52.0); HGB - HEMOGLOBIN 12.3 g/dL (14.0-18.0); MEAN PLATELET VOLUME 9.7 fL (7.4-11.4); PLT - PLATELET COUNT 265 10^3/uL (130-450); RED CELL DISTRIBUTION WIDTH 13.7 % (12.0-15.0)
[2025-07-15 14:06] LABS: ABNORMAL LYMPHS % (MANUAL) 0 %; BASOPHILS # (MANUAL) 0.0 10^3/uL (0-0.1); EOSINOPHILS # (MANUAL) 0.0 10^3/uL (0-0.7)
--- NOTE | 2025-07-15 14:23 | PHARMACY PROGRESS NOTE ---
Best Possible Medication History Admit Date and Time: 07/15/25 0222 Home Medications Medication Instructions Recorded Confirmed Type amlodipine 5 mg tablet 5 mg PO DAILY 01/18/2507/15 History doxazosin 8 mg tablet 8 mg PO BID 01/18/25 5 History fluticasone 500 mcg-salmeterol 50 1 inh inhalation PRN PRN wheezing 01/18/25 07/14/25 History mcg/dose blistr powdr for inhalation (Wixela Inhub) lisinopril 10 mg tablet 10 mg PO DAILY 01/18/2506/19 History pantoprazole 40 mg tablet,delayed 40 mg PO DAILY 01/1807/14/25 History release simvastatin 20 mg tablet 20 mg PO DAILY 01/18/2506/19 History trazodone 50 mg tablet 25 mg PO DAILY 01/18/2506/19 History alprazolam 0.25 mg tablet 0.125 - 0.25 mg PO DAILY PRN 07/14/25 History anxiety aspirin 81 mg capsule 81 mg PO DAILY 07/14/2506/19 History colchicine 0.6 mg capsule See Rx Instructions PO DAILY 07/14/25 History hydrocodone 5 mg-acetaminophen 325 1 tab PO Q4H PRN pa in 07/14/25 History mg tablet Medication History completed: In progress ( to bring in home medication list. current fill hx on amlodipine, doxazosin, wixela, lisinopril, pantoprazole, simvastatin, and trazodone) [facility] Statement: As the person ultimately responsible for medication therapy, providers are able to order a medication from an existing home medication list in [facility] via the "Reconcile Routine" prior to Confirmation of that medication by ground support equipment mechanic. Such practice is discouraged except when the physician, in their clinical judgment, deems that a medical need exists for a medication without regard to previous use.
[2025-07-15 14:30] LABS: ALT ALANINE AMINOTRANSFERASE 25.0 IU/L (10-60); AST ASPARTATE AMINOTRANSFERASE 34.0 IU/L (10-42); BUN - BLOOD UREA NITROGEN 29.0 mg/dL (6-20); CARBON DIOXIDE - CO2 20.0 mmol/L (21-32); CREATININE 1.5 mg/dL (0.6-1.3); GFR - MDRD 44.0 (>89)
[2025-07-15] MEDS: VASOPRESSIN 20 UNIT in DEXTROSE 5% 99 ML IV SCH (14:39)
[2025-07-15 14:40] LABS: BAND NEUTROPHILS % (MANUAL) 25 %; LYMPHOCYTES # (MANUAL) 0.8 10^3/uL (1.5-3.5); LYMPHOCYTES % (MANUAL) 3 %; MONOCYTES # (MANUAL) 1.3 10^3/uL (0.0-1.0); NEUTROPHILS # (MANUAL) 23.1 10^3/uL (1.5-6.6); RBC MORPHOLOGY (MULTIPLE) 1+ BURR CELLS (NORMAL)
[2025-07-15 14:41] LABS: PLATELET ESTIMATE, MANUAL NORMAL (130-450,000) (NORMAL); PLATELET MORPHOLOGY NORMAL APPEARANCE (NORMAL); WBC MORPHOLOGY (MULTIPLE) NORMAL APPEARANCE (NORMAL)
[2025-07-15] MEDS: PANTOPRAZOLE 40 MG VIAL IVP SCH (14:48)
[2025-07-15] MEDS: fentaNYL 100 MCG/2 ML VIAL IVP ONE (14:48)
[2025-07-15] MEDS: CHLORHEXIDINE GLUCONATE 15 ML UDC PO SCH (14:49)
[2025-07-15] MEDS: SODIUM BICARBONATE 100 MEQ in DEXTROSE 5% 1,000 ML IV SCH (15:24)
[2025-07-15] MEDS: PROPOFOL 1000 MG/100 ML 1,000 MG/100 ML BOTTLE IV SCH (15:50)
[2025-07-15 17:29] LABS: ABG BASE EXCESS -11.5 mmol/L (-2.0-3.0); ABG FRACTION OF INSPIRED O2 80.00; ABG HCO3 14.3 mmol/L (22.0-26.0); ABG MODE OF VENTILATION ASSIST/CONTROL; ABG OXYGEN SATURATION 100 % (95-98); ABG PCO2 26 mmHg (34-45); ABG PH 7.35 (7.35-7.45); ABG PO2 89 mmHg (83-108); ABG RESPIRATORY RATE 22 b/min; ABG TCO2 15.1 mmol/L (21.0-29.0)
[2025-07-15] MEDS: SODIUM CHLORIDE FLUSH 0.9% 10 ML SYRINGE IVP SCH (19:12)
--- NOTE | 2025-07-15 19:34 | ANESTHESIA POST OP EVALUATION ---
Anesthesia Post Eval Post Anesthesia Eval Vitals: Last Vital Signs Temp 36.6 C 07/15/25 16:00 Pulse 72 07/15/25 19:00 Resp 22 07/15/25 19:00 BP 114/70 07/15/25 19:00 Pulse Ox 99 07/15/25 19:00 O2 Flow Rate 3 07/15/25 08:13 CV Function Including HR & BP: Additional Therapies Ordered (on vasopressors) Pain Control: Satisfactory Nausea & Vomiting: Negative Mental Status: Other (intubated, sedated) Respiratory Status: Airway Patent (8.0 ETT) Hydration Status: Satisfactory Anesthesia Complications: None Other Details/Therapies Other Details/Therapies: Patient septic, post colectomy for bowel.
[2025-07-15] MEDS: MEROPENEM 1 GM VIAL IVP SCH (21:29)
[2025-07-16 04:44] LABS: HCT - HEMATOCRIT 34.7 % (42.0-52.0); HGB - HEMOGLOBIN 11.4 g/dL (14.0-18.0); MEAN PLATELET VOLUME 10.2 fL (7.4-11.4); PLT - PLATELET COUNT 269 10^3/uL (130-450); RED CELL DISTRIBUTION WIDTH 13.9 % (12.0-15.0)
[2025-07-16 04:53] LABS: ABG BASE EXCESS -5.7 mmol/L (-2.0-3.0); ABG HCO3 18.2 mmol/L (22.0-26.0); ABG OXYGEN SATURATION 98 % (95-98); ABG PCO2 25 mmHg (34-45); ABG PH 7.47 (7.35-7.45); ABG PO2 74 mmHg (83-108); ABG TCO2 19.0 mmol/L (21.0-29.0)
[2025-07-16 04:54] LABS: ABG FRACTION OF INSPIRED O2 40.00; ABG MODE OF VENTILATION ASSIST/CONTROL; ABG RESPIRATORY RATE 22 b/min
[2025-07-16 04:54] LABS: VBG PH 7.414 (7.31-7.41)
[2025-07-16 04:57] LABS: ABNORMAL LYMPHS % (MANUAL) 0 %; BASOPHILS # (MANUAL) 0.0 10^3/uL (0-0.1); EOSINOPHILS # (MANUAL) 0.0 10^3/uL (0-0.7)
[2025-07-16 05:01] LABS: PHOSPHORUS 2.4 mg/dL (2.5-5.0)
[2025-07-16 05:26] LABS: BAND NEUTROPHILS % (MANUAL) 19 %; LYMPHOCYTES # (MANUAL) 0.5 10^3/uL (1.5-3.5); LYMPHOCYTES % (MANUAL) 3 %; MONOCYTES # (MANUAL) 0.5 10^3/uL (0.0-1.0); NEUTROPHILS # (MANUAL) 17.2 10^3/uL (1.5-6.6); PLATELET ESTIMATE, MANUAL NORMAL (130-450,000) (NORMAL); PLATELET MORPHOLOGY NORMAL APPEARANCE (NORMAL); RBC MORPHOLOGY (MULTIPLE) NORMAL APPEARANCE (NORMAL); WBC MORPHOLOGY (MULTIPLE) NORMAL APPEARANCE (NORMAL)
[2025-07-16 05:32] LABS: ALT ALANINE AMINOTRANSFERASE 20.0 IU/L (10-60); AST ASPARTATE AMINOTRANSFERASE 28.0 IU/L (10-42); BUN - BLOOD UREA NITROGEN 26.0 mg/dL (6-20); CARBON DIOXIDE - CO2 21.0 mmol/L (21-32); CREATININE 1.2 mg/dL (0.6-1.3); GFR - MDRD 57.0 (>89)
[2025-07-16] MEDS: CALCIUM GLUCONATE IN NS 0.9% 2,000 MG/100 ML BAG IV ONE (05:35)
--- NOTE | 2025-07-16 07:50 | PROVIDER PROGRESS NOTE ---
Subjective Prog Note Date Prog Note Date: 07/16/25 Prog Note Time: 07:44 Subjective Subjective: Patient improving somewhat overnight. He is somewhat alkalotic on his latest gas this morning as well as hypercapnic. His rates have been reduced. His pO2 is still low, but his saturations have remained consistently elevated. PEEP was increased to 8. He continues to auto diuresis. WBC downtrending somewhat 25-18. Platelets stable at 260. Hgb hovering around 12. Will continue to trend CBC tomorrow. Calcium 6.2, creatinine back down to 1.2. Phos 2.4, and mag 1.9. Potassium was normal. Sodium 137. Blood cultures with no growth. Discussed case with general surgery today. Discussed with respiratory therapy. Patient was extubated today to oxy mask. His cough is weak, but he is clearing. As his sedation is weaning, he is able to participate more. He is having a low- grade fever, starting on some IV Tylenol. Current Medications Current Medications Current Medications: Current Medications Generic Name Dose Route Start Last Admin Trade Name Freq PRN Reason Stop Dose Admin Albuterol 2.5 mg 07/15/25 14:27 Albuterol Neb 2.5 Mg/3 Ml INH Q4HR PRN Wheezing Chlorhexidine Gluconate 15 ml 07/15/25 14:27 07/15/25 21:24 Chlorhexidine Gluconate 15 Ml Udc PO 15 ml BID TOMY Administration Heparin Sodium (Porcine) 5,000 unit 07/16/25 09:00 Heparin 5,000 Unit/Ml Vial SUBQ BID TOMY Norepinephrine/Sodium Chloride 8 mg in 250 mls @ 15 mls/hr 07/15/25 11:00 07/16/25 06:59 Levophed 8 Mg/250-0.9% Nacl IV 8 mcg/min .[id number] TOMY 15 mls/hr Protocol Administration 8 MCG/MIN Fentanyl 2,500 mcg in 250 mls @ 5 mls/hr 07/15/25 14:00 07/16/25 04:06 Fentanyl IV 07/17/25 15:10 3 mcg/kg/hr .Q50H TOMY 30.15 mls/hr Protocol Titration Vasopressin 20 unit/ Dextrose 100 mls @ 9 mls/hr 07/15/25 14:27 07/15/25 22:47 IV 0.03 unit/min .Q11H7M TOMY 9 mls/hr 0.03 UNIT/MIN Administration Sodium Bicarbonate 100 meq/ 1,100 mls @ 100 mls/hr 07/15/25 15:00 07/16/25 02:05 Dextrose IV 100 mls/hr .Q11H TOMY Administration Propofol 1,000 mg in 100 mls @ 6.03 mls/hr 07/15/25 16:00 07/16/25 06:59 Diprivan IV 20 mcg/kg/min .[id number] TOMY 12.06 mls/hr Protocol Administration 10 MCG/KG/MIN Acetaminophen 1,000 mg in 100 mls @ 400 mls/hr 07/15/25 20:53 Acetaminophen IV Q6HR PRN FEVER > 100.5 F Potassium Phosphate 15 mmol/ 255 mls @ 63 mls/hr 07/16/25 08:00 Sodium Chloride IV 07/16/25 12:02 ONCE ONE Protocol Ipratropium [place] 0.5 mg 07/15/25 14:27 Ipratropium 0.2 Mg/Ml Neb INH Q6HR PRN Wheezing Meropenem 1 gm 07/15/25 21:00 07/15/25 21:29 Meropenem 1 Gm Vial IVP 1 gm Q12H TOMY Administration Ondansetron HCl 4 mg 07/15/25 06:58 Ondansetron 4 Mg/2 Ml Vial IVP Q6HR PRN Nausea / Vomiting Pantoprazole Sodium 40 mg 07/15/25 14:27 07/16/25 06:32 Pantoprazole 40 Mg Vial IVP 40 mg QDAC TOMY Administration Prochlorperazine Edisylate 10 mg 07/15/25 14:27 Prochlorperazine 10 Mg/2 Ml Vial IVP Q6HR PRN Nausea / Vomiting Sodium Chloride 10 ml 07/15/25 17:00 07/15/25 21:34 Sodium Chloride Flush 0.9% 10 Ml Syringe IVP 10 ml 0100,0900,1700 TOMY Administration Sodium Chloride 10 ml 07/15/25 14:27 Sodium Chloride Flush 0.9% 10 Ml Syringe IVP PRN PRN NEEDED PER PROVIDER ORDERS Sterile Water 20 ml 07/15/25 21:00 07/15/25 21:29 Water For Injection,Sterile 10 Ml Vial MC 20 ml BID TOMY Administration Objective Vital Signs/Intake & Output Vital Signs: Vital Signs x48h Temp Pulse Pulse Resp BP Pulse Ox O2 Flow Rate 07/16/25 07:05 74 07/16/25 07:00 71 22 104/53 L 96 07/16/25 06:30 72 22 120/53 L 96 40 07/16/25 06:00 68 22 110/52 L 96 07/16/25 05:30 37.7 C 71 22 100/51 L 95 07/16/25 05:00 73 22 95/56 L 95 07/16/25 04:13 71 07/16/25 04:00 37.5 C 72 22 103/51 L 98 07/16/25 03:30 72 22 97/60 97 07/16/25 03:00 72 22 103/61 97 07/16/25 02:30 72 22 94/65 97 07/16/25 02:00 72 22 96/57 L 97 07/16/25 01:30 71 22 96/51 L 97 07/16/25 01:00 71 22 103/64 97 07/16/25 00:30 72 22 94/60 97 07/16/25 00:00 37.4 C 72 22 103/62 96 Intake & Output: Intake & Output 07/13/25 07/14/25 07/15/25 07/16/25 23:59 23:59 23:59 23:59 Intake Total 1999 34471 / 04984 1426 / 1426 Output Total 2417 / 2417 980 / 980 Balance 1999 9116 / 9116 446 / 446 Weight (kg) 100.5 kg 101 kg 103 kg Objective Comments/Other: GEN: Intubated and sedated. Wakes easily with sedation wean. Spontaneous breathes. HEENT: NC/AT, normal appearance of external ears and nose. Moist mucus membranes. Warm and perspiring Cardiac: Regular rate and rhythm, no murmurs. No appreciable murmurs Pulm: Coarse ronchi diffusely, gurgling breaths prior to intubation. Abdomen: Midline incision is well approximated and dressed. Ostomy in place in R abdomen. Minimal liquidy output from ostomy. NISREEN drain in left abdomen. Less distended. Soft. Extremeties: Palable pulses bilaterally. Warm and well-perfused. Volitionally can squeeze both hands. Lab Results 07/16/25 04:30 07/16/25 04:30 Other Labs: Lab Results x24hrs 07/16/25 07/16/25 07/15/25 Range/Units 04:40 04:30 17:20 WBC 18.3 H (4.8-10.8) x10^3/uL RBC 3.56 L (4.70-6.10) 10^6/uL Hgb 11.4 L (14.0-18.0) g/dL Hct 34.7 L (42.0-52.0) % MCV 97.5 H (80.0-94.0) fL MCH 32.0 H (27.0-31.0) pg MCHC 32.9 (32.0-36.0) g/dL RDW 13.9 (12.0-15.0) % Plt Count 269 (130-450) 10^3/uL MPV 10.2 (7.4-11.4) fL Neut # (Auto) Not Reportable Lymph # (Auto) Not Reportable Haskell # (Auto) Not Reportable Eos # (Auto) Not Reportable Baso # (Auto) Not Reportable Absolute Nucleated RBC Not Reportable Total Counted 100 Band Neuts % (Manual) 19 H (0 - 10) % Abnorm Lymph % (Manual) 0 % Nucleated RBC % Not Reportable Neutrophils # (Manual) 17.2 H (1.5-6.6) 10^3/uL Lymphocytes # (Manual) 0.5 L (1.5-3.5) 10^3/uL Monocytes # (Manual) 0.5 (0.0-1.0) 10^3/uL Eosinophils # (Manual) 0.0 (0-0.7) 10^3/uL Basophils # (Manual) 0.0 (0-0.1) 10^3/uL Differential Comment MANUAL DIFFERENTIAL WBC Morphology NORMAL APPEARANCE (NORMAL) Platelet Estimate NORMAL (130-450,000) (NORMAL) Platelet Morphology NORMAL APPEARANCE (NORMAL) RBC Morph Micro Appear NORMAL APPEARANCE (NORMAL) Bld Gas Analysis Time 4130 9023 Sample Site RIGHT RADIAL A-LINE ABG pH 7.47 H 7.35 (7.35-7.45) ABG pCO2 25 L 26 L (34-45) mmHg ABG pO2 74 L 89 (83-108) mmHg ABG HCO3 18.2 L 14.3 L (22.0-26.0) mmol/L ABG Total CO2 19.0 L 15.1 L (21.0-29.0) mmol/L ABG O2 Saturation 98 100 H (95-98) % ABG Base Excess -5.7 L -11.5 L (-2.0-3.0) mmol/L Low Test POSITIVE NOT APPLICABLE VBG pH 7.414 H (7.31-7.41) Ionized Calcium 0.99 L (1.09-1.30) mmol/L Respiration Rate 22 22 b/min O2 Delivery Device VENTILATOR VENTILATOR Vent Mode ASSIST/CONTROL ASSIST/CONTROL FiO2 40.00 80.00 Tidal Volume 550 550 mL PEEP 8 5 cmH2O Sodium 137 (135-145) mmol/L Potassium 3.9 (3.5-4.5) mmol/L Chloride 111 (101-111) mmol/L Carbon Dioxide 21 (21-32) mmol/L Anion Gap 5.0 L (6-13) BUN 26 H (6-20) mg/dL Creatinine 1.2 (0.6-1.3) mg/dL Estimated GFR (MDRD) 57 L (>89) Glucose 186 H (74-104) mg/dL Lactic Acid (0.5-2.2) mmol/L Calcium 6.2 L* (8.5-10.3) mg/dL Phosphorus 2.4 L (2.5-5.0) mg/dL Magnesium 1.9 (1.7-2.3) mg/dL Total Bilirubin 0.4 (0.2-1.0) mg/dL AST 28 (10-42) IU/L ALT 20 (10-60) IU/L Alkaline Phosphatase 28 L (42-121) IU/L Total Protein 4.1 L (6.4-8.9) g/dL Albumin 2.3 L (3.2-5.5) g/dL Globulin 1.8 L (2.1-4.2) g/dL Albumin/Globulin Ratio 1.3 (1.0-2.2) Nasal Screen MRSA (PCR) (NEGATIVE) 07/15/25 07/15/25 07/15/25 Range/Units 13:56 13:10 12:55 WBC 25.1 H (4.8-10.8) x10^3/uL RBC 3.82 L (4.70-6.10) 10^6/uL Hgb 12.3 L (14.0-18.0) g/dL Hct 38.2 L (42.0-52.0) % MCV 100.0 H (80.0-94.0) fL MCH 32.2 H (27.0-31.0) pg MCHC 32.2 (32.0-36.0) g/dL RDW 13.7 (12.0-15.0) % Plt Count 265 (130-450) 10^3/uL MPV 9.7 (7.4-11.4) fL Neut # (Auto) Not Reportable Lymph # (Auto) Not Reportable [place] # (Auto) Not Reportable Eos # (Auto) Not Reportable Baso # (Auto) Not Reportable Absolute Nucleated RBC Not Reportable Total Counted 100 Band Neuts % (Manual) 25 H (0 - 10) % Abnorm Lymph % (Manual) 0 % Nucleated RBC % Not Reportable Neutrophils # (Manual) 23.1 H (1.5-6.6) 10^3/uL Lymphocytes # (Manual) 0.8 L (1.5-3.5) 10^3/uL Monocytes # (Manual) 1.3 H (0.0-1.0) 10^3/uL Eosinophils # (Manual) 0.0 (0-0.7) 10^3/uL Basophils # (Manual) 0.0 (0-0.1) 10^3/uL Differential Comment MANUAL DIFFERENTIAL WBC Morphology NORMAL APPEARANCE (NORMAL) Platelet Estimate NORMAL (130-450,000) (NORMAL) Platelet Morphology NORMAL APPEARANCE (NORMAL) RBC Morph Micro Appear 1+ HEBER CELLS (NORMAL) Bld Gas Analysis Time 1318 Sample Site LEFT RADIAL ABG pH 7.19 L* (7.35-7.45) ABG pCO2 36 (34-45) mmHg ABG pO2 72 L (83-108) mmHg ABG HCO3 13.8 L (22.0-26.0) mmol/L ABG Total CO2 14.9 L (21.0-29.0) mmol/L ABG O2 Saturation 93 L (95-98) % ABG Base Excess -14.7 L (-2.0-3.0) mmol/L Low Test POSITIVE VBG pH (7.31-7.41) Ionized Calcium (1.09-1.30) mmol/L Respiration Rate 16 b/min O2 Delivery Device VENTILATOR Vent Mode ASSIST/CONTROL FiO2 50.00 Tidal Volume 580 mL PEEP 5 cmH2O Sodium 140 (135-145) mmol/L Potassium 5.1 H (3.5-4.5) mmol/L Chloride 116 H (101-111) mmol/L Carbon Dioxide 20 L (21-32) mmol/L Anion Gap 4.0 L (6-13) BUN 29 H (6-20) mg/dL Creatinine 1.5 H (0.6-1.3) mg/dL Estimated GFR (MDRD) 44 L (>89) Glucose 125 H (74-104) mg/dL Lactic Acid 2.5 H (0.5-2.2) mmol/L Calcium 6.1 L* (8.5-10.3) mg/dL Phosphorus (2.5-5.0) mg/dL Magnesium (1.7-2.3) mg/dL Total Bilirubin 0.7 (0.2-1.0) mg/dL AST 34 (10-42) IU/L ALT 25 (10-60) IU/L Alkaline Phosphatase 28 L (42-121) IU/L Total Protein 4.2 L (6.4-8.9) g/dL Albumin 2.6 L (3.2-5.5) g/dL Globulin 1.6 L (2.1-4.2) g/dL Albumin/Globulin Ratio 1.6 (1.0-2.2) Nasal Screen MRSA (PCR) NEGATIVE (NEGATIVE) 07/15/25 Range/Units 11:00 WBC (4.8-10.8) x10^3/uL RBC (4.70-6.10) 10^6/uL Hgb (14.0-18.0) g/dL Hct (42.0-52.0) % MCV (80.0-94.0) fL MCH (27.0-31.0) pg MCHC (32.0-36.0) g/dL RDW (12.0-15.0) % Plt Count (130-450) 10^3/uL MPV (7.4-11.4) fL Neut # (Auto) Lymph # (Auto) [place] # (Auto) Eos # (Auto) Baso # (Auto) Absolute Nucleated RBC Total Counted Band Neuts % (Manual) (0 - 10) % Abnorm Lymph % (Manual) % Nucleated RBC % Neutrophils # (Manual) (1.5-6.6) 10^3/uL Lymphocytes # (Manual) (1.5-3.5) 10^3/uL Monocytes # (Manual) (0.0-1.0) 10^3/uL Eosinophils # (Manual) (0-0.7) 10^3/uL Basophils # (Manual) (0-0.1) 10^3/uL Differential Comment WBC Morphology (NORMAL) Platelet Estimate (NORMAL) Platelet Morphology (NORMAL) RBC Morph Micro Appear (NORMAL) Bld Gas Analysis Time 1105 Sample Site ABG pH 7.18 L* (7.35-7.45) ABG pCO2 43 (34-45) mmHg ABG pO2 329 H (83-108) mmHg ABG HCO3 16.0 L (22.0-26.0) mmol/L ABG Total CO2 17.3 L (21.0-29.0) mmol/L ABG O2 Saturation 100 H (95-98) % ABG Base Excess -12.6 L (-2.0-3.0) mmol/L Low Test UNKNOWN VBG pH (7.31-7.41) Ionized Calcium (1.09-1.30) mmol/L Respiration Rate b/min O2 Delivery Device Vent Mode FiO2 Tidal Volume mL PEEP cmH2O Sodium (135-145) mmol/L Potassium (3.5-4.5) mmol/L Chloride (101-111) mmol/L Carbon Dioxide (21-32) mmol/L Anion Gap (6-13) BUN (6-20) mg/dL Creatinine (0.6-1.3) mg/dL Estimated GFR (MDRD) (>89) Glucose (74-104) mg/dL Lactic Acid (0.5-2.2) mmol/L Calcium (8.5-10.3) mg/dL Phosphorus (2.5-5.0) mg/dL Magnesium (1.7-2.3) mg/dL Total Bilirubin (0.2-1.0) mg/dL AST (10-42) IU/L ALT (10-60) IU/L Alkaline Phosphatase (42-121) IU/L Total Protein (6.4-8.9) g/dL Albumin (3.2-5.5) g/dL Globulin (2.1-4.2) g/dL Albumin/Globulin Ratio (1.0-2.2) Nasal Screen MRSA (PCR) (NEGATIVE) Diagnostic Imaging Diagnostic Imaging Results: positive Final report reviewed and Read independently Diagnostic Imaging Comments: Chest x-ray and abdominal x-ray reviewed. NGT in place in the stomach. Central line in place in right atria. Review of CXR from 07/16: Moderate vascular congestion with bilateral pleural effusions. Sepsis Event Note (H) Evaluation Current Stage of Sepsis: Septic shock Possible source of Sepsis: positive GI tract/intra-abdominal Sepsis Criteria Sepsis Criteria: WBC count greater than 10% bands, WBC count greater than 12,000 or less than 4000, SBP less than 90 mmHg and Renal: urine output less than 0.5ml/kg/hr for 2 hours or creatinine gr Assessment/Plan Problem List (1) Septic shock: Impression: Improved. Patient was able to be weaned from Levophed today. Remains on vasopressin with reasonable blood pressures. Recall patient was admitted with abdominal pain and found to have bowel ischemia as below. Postoperatively he was requiring pressors. Did have softening BP prior to going to the OR. He has received ample fluid. Over 10 L in the last 24 hours. He is making urine. Suspect the etiology is septic shock. Likely from his intra-abdominal source. He has been treated with meropenem. He he is having fever as of 07/16. - Continue to monitor CBC, BMP every morning - Wean pressors as tolerated, MAP goal greater then 65 - Continue meropenem, may need dose adjustment with improved renal function - Continue following NISREEN output, appreciate general surgery - Extubated 07/16, oxygenating reasonably well. (2) Metabolic acidosis: Impression: Resolved Overall of unclear etiology. His lactate was only minimally elevated. He was largely hypochloremic. He received bicarb and ventilation, and subsequently became alkalotic. He has an arterial line in place that is not reading well regarding BP, but continues to draw arterial blood well. - Monitor metabolic panel in a.m. - Treat problems as above and below (3) KSENIA (acute kidney injury): Impression: Improved. Received ample fluids and his resuscitative efforts. His creatinine is now 1.2. Baseline is around 1. - Metabolic panel a.m. - Avoid nephrotoxins as able - Pressor support as above - Will start on maintenance fluids with D5 1/2 NS (4) Ischemia, bowel: (5) Bowel obstruction: Qualifiers: Intestinal obstruction extent: partial Intestinal obstruction type: u nspecified Qualified Code(s): K56.600 - Partial intestinal obstruction, unspecified as to cause (6) Left inguinal hernia: Impression: Improving as above and below. No return of bowel function yet. No gas passing from his stoma Persistent left inguinal hernia. 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 Recall that his ischemic bowel was removed, but he has a persistent left inguinal hernia that is at risk for incarceration. - Appreciate general surgery, Discussed care with them this morning - Patient remains at risk of incarceration, monitor closely when he starts waking up - NPO until return of bowel function, NGT in place (7) Hypertension: Impression: Chronic problem. Home meds include amlodipine 5 mg, lisinopril 10 mg, doxazosin 8 mg twice daily - Holding home antihypertensives with shock as above. (8) Asthma: Impression: Patient was able to extubate rather successfully. Continues to have some wheeze on his exam postextubation. Prior to this hospitalization, uses Wixela inhaler as needed. - Appreciate RT involvement - Resume home inhalers starting this evening - As needed DuoNebs available - Will start expectorants as soon as he has returned of bowel function (9) Anxiety: Impression: Prior to his hospitalization patient is on 0.125 to 0.25 mg p.o. as needed alprazolam. - Will resume home alprazolam once he has returned of bowel function (10) BPH (benign prostatic hyperplasia): Impression: Currently NPO, will resume doxazosin once taking oral intake. Hoyos currently in place postoperatively. Trial of void 07/17 I spent a total of 52 minutes in the care of this patient today. This time was spent reviewing his labs, vital signs, imaging, interviewing and examining the patient, and discussing his plan of care with him and his other care providers. Extensive discussions with surgery today. 41 minutes of critical care time Including managing his pressors, vent settings, and discussion of care with his family.
[2025-07-16] MEDS: HEPARIN 5,000 UNIT/ML VIAL SUBQ SCH (08:45)
[2025-07-16 09:32] LABS: VBG PH 7.398 (7.31-7.41)
[2025-07-16] MEDS: POTASSIUM PHOSPHATE 15 MMOL in SODIUM CHLORIDE 0.9% 250 ML IV ONE (09:46)
--- NOTE | 2025-07-16 12:22 | XRAY Report ---
PROCEDURE: XR Chest 1V INDICATIONS: intubation TECHNIQUE: One view of the chest was acquired. COMPARISON: None. FINDINGS: Surgical changes and devices: Endotracheal tube tip 3.5 cm above the bridget. Right IJ central venous line in the distal SVC. Nasogastric tube in the stomach. Lungs and pleura: Heart size within normal limits. Moderate vascular congestion and bibasilar pleural effusions Mediastinum: Mediastinal contours appear normal. Heart size is normal. Bones and chest wall: No suspicious bony lesions. Overlying soft tissues appear unremarkable. IMPRESSION: Endotracheal tube good position 3.5 cm above the bridget. Moderate vascular congestion and bilateral pleural effusions Reviewed by: Cosme Santos MD on 07/16/2025 11:19 AM FLETCHER Approved by: Cosme Santos MD on 07/16/2025 11:19 AM FLETCHER Station ID: [id number]
[2025-07-16] MEDS: ACETAMINOPHEN 1,000 MG/100 ML 1,000 MG/100 ML BAG IV PRN (13:09)
[2025-07-16] MEDS: IPRATROPIUM 0.2 MG/ML NEB INH PRN (13:14)
[2025-07-16] MEDS: ALBUTEROL NEB 2.5 MG/3 ML INH PRN (13:14)
--- NOTE | 2025-07-16 14:28 | PHARMACY PROGRESS NOTE ---
Best Possible Medication History Admit Date and Time: 07/15/25 0222 Home Medications Medication Instructions Recorded Confirmed Type amlodipine 5 mg tablet 5 mg PO DAILY 01/18/2507/15 History doxazosin 8 mg tablet 8 mg PO BID 01/18/25 5 History fluticasone 500 mcg-salmeterol 50 1 inh inhalation JES LY PRN wheezing 01/18/25 07/16/25 History mcg/dose blistr powdr for inhalation (Wixela Inhub) lisinopril 10 mg tablet 10 mg PO DAILY 01/18/2506/19 History pantoprazole 40 mg tablet,delayed 40 mg PO DAILY 01/1807/14/25 History release simvastatin 20 mg tablet 20 mg PO DAILY 01/18/2506/19 History trazodone 50 mg tablet 25 mg PO DAILY 01/18/2506/19 History alprazolam 0.25 mg tablet 0.125 - 0.25 mg PO DAILY PRN 07/14/25 07/16/25 History anxiety aspirin 81 mg capsule 81 mg PO DAILY 07/14/2506/19 History colchicine 0.6 mg capsule See Rx Instructions PO DAILY 07/14/25 07/16/25 History hydrocodone 5 mg-acetaminophen 325 1 tab PO Q4H PRN pa in 07/14/25 07/16/25 History mg tablet Processed by: Pharmacy (Medication reconciliation completed by Laser EngineerKatie) Medications reviewed in ED?: No Medication History completed: Yes Patient Interview: Pt unable to participate Secondary Source(s): Prescription bottles, Spouse/Significant other and Insurance records [facility] Statement: As the person ultimately responsible for medication therapy, providers are able to order a medication from an existing home medication list in [facility] via the "Reconcile Routine" prior to Confirmation of that medication by life support technician. Such practice is discouraged except when the physician, in their clinical judgment, deems that a medical need exists for a medication without regard to previous use.
--- NOTE | 2025-07-16 14:45 | PROVIDER PROGRESS NOTE ---
Subjective General Admit Date: 07/16/25 Procedure Date: 07/15/25 Post Op Days: 3 Procedure Performed: Exp lap with transverse & left colectomy, end colostomy, Hartmanns, drain, Wound Assessment Wound/Incisions: positive Dressing dry and intact Drain Type: 19 Fr Ranulfo in the LEFT gutter Drain Output Description: Serosanguinous Review of Systems Patient intubated and sedated - NO ROS done. Exam Exam Vital Signs: Vital Signs x48h Temp Pulse Pulse Resp BP BP Pulse Ox 07/18/25 00:05 100 23 117/67 95 07/18/25 00:00 105 H 28 H 104/66 94 07/17/25 23:55 37.3 C 112 H 24 102/64 94 07/17/25 23:48 139 H 127/82 07/17/25 23:00 127 H 24 127/82 97 07/17/25 22:00 96 20 133/66 H 93 07/17/25 21:00 93 21 133/66 H 97 07/17/25 20:00 37.4 C 92 17 137/72 H 95 07/17/25 19:00 97 14 132/70 H 96 07/17/25 19:00 95 14 132/70 H 96 07/17/25 18:00 97 21 134/67 H 96 07/17/25 17:00 94 93 H 122/80 93 O2 Flow Rate 07/18/25 00:05 4 07/18/25 00:00 4 07/17/25 23:55 4 07/17/25 23:48 07/17/25 23:00 4 07/17/25 22:00 3 07/17/25 21:00 3 07/17/25 20:00 3 07/17/25 19:00 2 07/17/25 19:00 3 07/17/25 18:00 2 07/17/25 17:00 2 General: 89-year old male, appears younger than stated age, intubated and sedated and pulling at restraints when I was examining him HEENT: Normocephalic, atraumatic, extraocular movement intact, mucous membranes pink and moist, sclera anicteric and not injected, endotracheal tube in place, N G tube in place Neck: Central line in place Cardiac: Regular rate and rhythm without rub, gallop, or murmur Chest: Clear to auscultation bilaterally anterolaterally with ventilatory motion Abdomen: Soft, cannot evaluate tenderness, absent bowel sounds, ostomy a bit dark at superior aspect, no productive yet, midline wound dressed with Mepilex dressing, 19 Fr Ranulfo drain in LLQ - serosanguinous Genitourinary: Deferred Rectal: Deferred Extremities: No gross neurovascular problem, no clubbing, cyanosis or edema Gait: Not evaluated - patient intubated and sedated Psychiatric: Patient intubated and sedated Impression/Plan Problem List (1) Septic shock: (2) Metabolic acidosis: (3) KSENIA (acute kidney injury): (4) Ischemia, bowel: (5) Bowel obstruction: Qualifiers: Intestinal obstruction extent: partial Intestinal obstruction type: unspecified Qualified Code(s): K56.600 - Partial intestinal obstruction, unspecified as to cause (6) Left inguinal hernia: (7) Hypertension: (8) Asthma: (9) Anxiety: (10) BPH (benign prostatic hyperplasia): Plan D1 status post extended colectomy to include transverse colon and LEFT colon, with end ascending colon colostomy, Hartmanns, drain in LEFT gutter, umbilical herniorrhaphy 1) FEN Continues on a bicarb drip. Urine output appropriate. Expect that there will be a day 3 diuresis. 2) ID D2/7 Meripenem. I would continue to push for broad spectrum coverage in the patient with the clinical presentation. When his WBC normalizes or near normalizes can consider changing antibiotic coverage. 3) Cardiac Continues on pressors and bicarb drip. The pressors are being weaned off and the fluid requirements are decreasing. 4) Vent Extubation with O2 support. Gases have improved to this point. 5) DVT Prophylaxis physical and consider chemical. 6) Wound Closed with jennifer but there is a greater than normal risk of subcutaneous infection. Should this occur or if there is suspicion I will pull a few jennifer (and not open the entire wound) to promote drainage. Ostomy teaching when appropriate. Drainage is serosanguinous from drain - not purulent. 7) Bowel Await bowel function.
[2025-07-16] MEDS: LACTATED RINGERS 500 ML IV ONE (15:37)
[2025-07-16 15:45] LABS: ESTIMATED AVERAGE GLUCOSE 108 mg/dL (70-100); HEMOGLOBIN A1c% 5.4 % (4.27-6.07)
[2025-07-16] MEDS: D5.45NS W/20 MEQ KCL 1,000 ML IV SCH (15:46)
[2025-07-16] MEDS: SODIUM CHLORIDE FLUSH 0.9% 10 ML SYRINGE IVP PRN (15:47)
[2025-07-16] MEDS: ONDANSETRON 4 MG/2 ML VIAL IVP PRN (16:49)
[2025-07-16] MEDS: MEROPENEM 500 MG in SODIUM CHLORIDE 0.9% MINIBAG 100 ML IV SCH (17:20)
[2025-07-16 22:24] LABS: VBG PH 7.338 (7.31-7.41)
[2025-07-16] MEDS: CALCIUM GLUC 1,000MG/50ML-NACL 1,000 MG/50 ML BAG IV ONE (22:43)
[2025-07-17 04:23] LABS: HCT - HEMATOCRIT 35.1 % (42.0-52.0); HGB - HEMOGLOBIN 11.1 g/dL (14.0-18.0); MEAN PLATELET VOLUME 10.1 fL (7.4-11.4); NRBC ABSOLUTE COUNT (AUTO) 0.00 x10^3/uL; NUCLEATED RED BLOOD CELLS AUTO 0.0 /100WBC; PLT - PLATELET COUNT 239 10^3/uL (130-450); RED CELL DISTRIBUTION WIDTH 13.9 % (12.0-15.0)
[2025-07-17 04:34] LABS: VBG PH 7.341 (7.31-7.41)
[2025-07-17 04:43] LABS: ALT ALANINE AMINOTRANSFERASE 22.0 IU/L (10-60); AST ASPARTATE AMINOTRANSFERASE 39.0 IU/L (10-42); BUN - BLOOD UREA NITROGEN 19.0 mg/dL (6-20); CARBON DIOXIDE - CO2 27.0 mmol/L (21-32); CREATININE 0.8 mg/dL (0.6-1.3); GFR - MDRD 91.0 (>89)
[2025-07-17 04:49] LABS: PHOSPHORUS 2.4 mg/dL (2.5-5.0)
--- NOTE | 2025-07-17 07:23 | PROVIDER PROGRESS NOTE ---
<Statement entered by Moshe Reyes, DO - 07/17/25 18:38> I was present with the [employer]ALINO student on the hospitalist service. I personally verified the history of present illness and performed the physical examination and medical decision making. I have verified the students documentation for this encounter and agree with the plan of care below. In addition send 89-year-old gentleman with past medical history of hypertension, hyperlipidemia, anxiety, gout, asthma who presented with abdominal pain was found to have a incarcerated hernia that was reduced in the ER. He further went on to have ongoing signs of bowel obstruction and was taken to the OR for ex lap which revealed large section of necrotic colon. 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 Has been started empirically on meropenem, with downtrending white count that is stabilizing out today. He continues to do well objectively. His septic shock has resolved. He was extubated on 07/16 and is now requiring minimal oxygen via nasal cannula. His lungs are clear to auscultation. He has intermittent wheezes that is responding to treatment. He does not have return of bowel function yet, and oral meds are on hold. He was quite depressed today, saying that he was ready to , see ACP note from today. We will continue with current treatment with IV meropenem. Careful monitoring of his labs and vital signs. If he were to decompensate, respecting his wishes would likely transition to comfort care. In the meantime given his depression, I am starting him on some anxiolytics today, he has a history of being on alprazolam, though his most recent med list does not include this. Consider starting on an SSRI when he has return of bowel function. Subjective Prog Note Date Prog Note Date: 07/17/25 Prog Note Time: 07:19 Subjective Pt reports feeling: No change Subjective: Harvinder Wayne is a 89 year old male with a history of hypertension that was admitted 07/15 for a bowel ischemia and obstruction secondary to an incarcerated left inguinal hernia. He feels he's not improving much. No changes in bowel function. Continuing to clear secretions. He denies abdominal pain. ROS: Denies nausea, vomiting, fever, chills, night sweats, pain, changes in bowel habits Addendum, 07/17 15:30: Pt with family at bedside. He has told family that he "has met with his maker and is ready to ." Denies pain. He feels tired of being poked. Current Medications Current Medications Current Medications: Current Medications Generic Name Dose Route Start Last Admin Trade Name Freq PRN Reason Stop Dose Admin Albuterol 2.5 mg 07/15/25 14:27 07/16/25 13:14 Albuterol Neb 2.5 Mg/3 Ml INH 2.5 mg Q4HR PRN Administration Wheezing Chlorhexidine Gluconate 15 ml 07/15/25 14:27 07/16/25 20:47 Chlorhexidine Gluconate 15 Ml Udc PO 15 ml BID TOMY Administration Heparin Sodium (Porcine) 5,000 unit 07/16/25 09:00 07/16/25 21:28 Heparin 5,000 Unit/Ml Vial SUBQ 5,000 unit BID TOMY Administration Norepinephrine/Sodium Chloride 8 mg in 250 mls @ 15 mls/hr 07/15/25 11:00 07/16/25 12:45 Levophed 8 Mg/250-0.9% Nacl IV 0 mcg/min .[id number] TOMY 0 mls/hr Protocol Titration 8 MCG/MIN Vasopressin 20 unit/ Dextrose 100 mls @ 9 mls/hr 07/15/25 14:27 07/16/25 14:15 IV 0 unit/min .[id number] TOMY 0 mls/hr 0.03 UNIT/MIN Titration Acetaminophen 1,000 mg in 100 mls @ 400 mls/hr 07/15/25 20:53 07/17/25 02:19 Acetaminophen IV Infused Q6HR PRN Infusion FEVER > 100.5 F Ipratropium [place] 0.5 mg 07/15/25 14:27 07/16/25 13:14 Ipratropium 0.2 Mg/Ml Neb INH 0.5 mg Q6HR PRN Administration Wheezing Meropenem 1 gm 07/15/25 21:00 07/16/25 20:47 Meropenem 1 Gm Vial IVP 1 gm Q12H TOMY Administration Morphine Sulfate 2 mg 07/16/25 15:10 Morphine 2 Mg/Ml Carpuject IVP Q2HR PRN Severe Pain (Level 7-10) Ondansetron HCl 4 mg 07/15/25 06:58 07/16/25 16:49 Ondansetron 4 Mg/2 Ml Vial IVP 4 mg Q6HR PRN Administration Nausea / Vomiting Pantoprazole Sodium 40 mg 07/15/25 14:27 07/17/25 06:19 Pantoprazole 40 Mg Vial IVP 40 mg QDAC TOMY Administration Prochlorperazine Edisylate 10 mg 07/15/25 14:27 Prochlorperazine 10 Mg/2 Ml Vial IVP Q6HR PRN Nausea / Vomiting Sodium Chloride 10 ml 07/15/25 17:00 07/17/25 02:06 Sodium Chloride Flush 0.9% 10 Ml Syringe IVP Not Given 0100,0900,1700 TOMY Sodium Chloride 10 ml 07/15/25 14:27 07/16/25 15:47 Sodium Chloride Flush 0.9% 10 Ml Syringe IVP 10 ml PRN PRN Administration NEEDED PER PROVIDER ORDERS Sterile Water 20 ml 07/15/25 21:00 07/16/25 20:47 Water For Injection,Sterile 10 Ml Vial MC 20 ml BID TOMY Administration Objective Vital Signs/Intake & Output Reviewed Vital Signs: Yes Vital Signs: Vital Signs x48h Temp Pulse Resp BP Pulse Ox O2 Flow Rate 07/17/25 07:00 93 20 123/43 L 977 H 2 07/17/25 06:00 88 20 125/53 L 97 2 07/17/25 05:00 87 16 123/59 L 96 2 07/17/25 04:35 91 L 07/17/25 04:00 36.6 C 86 18 117/61 96 2 07/17/25 03:00 89 18 124/54 L 96 2 07/17/25 02:00 90 19 116/60 95 2 07/17/25 01:00 89 17 118/62 96 2 07/17/25 00:00 37.3 C 89 17 111/52 L 96 2 Intake & Output: Intake & Output 07/14/25 07/15/25 07/16/25 07/17/25 23:59 23:59 23:59 23:59 Intake Total 1999 77995 / 82161 4229 / 4229 1190 / 1190 Output Total 2417 / 2417 2580 / 2580 1065 / 1065 Balance 1999 9116 / 9116 1649 / 1649 125 / 125 Weight (kg) 100.5 kg 101 kg 103 kg 106 kg Objective General Appearance: positive No acute distress and Alert Respiratory: positive Chest non-tender and No respiratory distress; negative Wheezes, Rales or Rhonchi Cardiovascular: positive Regular rate & rhythm, No murmur and No gallop; negative Friction rub Peripheral Pulses: 2+: Radial (R), 2+: Radial (L), 2+: Dorsalis pedis (R), 2+: Dorsalis pedis (L), 2+: Posterior tibialis (R) and 2+: Posterior tibialis (L) Abdomen: positive Tenderness, Abnml bowel sounds (Diminished bowel sounds) and Other (Ostomy in right abdomen. Minimal liquidy output from ostomy. Stoma appears necrotic along the superior aspect. Some discoloration along inferior aspect of his midline dressing. NISREEN drain in left abdomen. ); negative No distention (slight), Guarding or Rebound Skin: positive Color nml Lab Results 07/17/25 04:14 07/17/25 04:14 Other Labs: Lab Results x24hrs 07/17/25 07/16/25 07/16/25 Range/Units 04:14 22:12 09:19 WBC 19.6 H (4.8-10.8) x10^3/uL RBC 3.54 L (4.70-6.10) 10^6/uL Hgb 11.1 L (14.0-18.0) g/dL Hct 35.1 L (42.0-52.0) % MCV 99.2 H (80.0-94.0) fL MCH 31.4 H (27.0-31.0) pg MCHC 31.6 L (32.0-36.0) g/dL RDW 13.9 (12.0-15.0) % Plt Count 239 (130-450) 10^3/uL MPV 10.1 (7.4-11.4) fL Neut # (Auto) 17.2 H (1.5-6.6) 10^3/uL Lymph # (Auto) 1.2 L (1.5-3.5) 10^3/uL [place] # (Auto) 1.0 (0.0-1.0) 10^3/uL Eos # (Auto) 0.0 (0.0-0.7) 10^3/uL Baso # (Auto) 0.1 (0.0-0.1) 10^3/uL Absolute Nucleated RBC 0.00 x10^3/uL Nucleated RBC % 0.0 /100WBC VBG pH 7.341 7.338 7.398 (7.31-7.41) Ionized Calcium 1.12 1.08 L 1.06 L (1.09-1.30) mmol/L Sodium 139 (135-145) mmol/L Potassium 4.1 (3.5-4.5) mmol/L Chloride 109 (101-111) mmol/L Carbon Dioxide 27 (21-32) mmol/L Anion Gap 3.0 L (6-13) BUN 19 (6-20) mg/dL Creatinine 0.8 (0.6-1.3) mg/dL Estimated GFR (MDRD) 91 (>89) Glucose 90 (74-104) mg/dL Estimat Average Glucose (70-100) mg/dL Hemoglobin A1c % (4.27-6.07) % Calcium 7.3 L (8.5-10.3) mg/dL Phosphorus 2.4 L (2.5-5.0) mg/dL Magnesium 2.2 (1.7-2.3) mg/dL Total Bilirubin 0.5 (0.2-1.0) mg/dL AST 39 (10-42) IU/L ALT 22 (10-60) IU/L Alkaline Phosphatase 39 L (42-121) IU/L Total Protein 4.6 L (6.4-8.9) g/dL Albumin 2.5 L (3.2-5.5) g/dL Globulin 2.1 (2.1-4.2) g/dL Albumin/Globulin Ratio 1.2 (1.0-2.2) 07/15/25 Range/Units 04:17 WBC (4.8-10.8) x10^3/uL RBC (4.70-6.10) 10^6/uL Hgb (14.0-18.0) g/dL Hct (42.0-52.0) % MCV (80.0-94.0) fL MCH (27.0-31.0) pg MCHC (32.0-36.0) g/dL RDW (12.0-15.0) % Plt Count (130-450) 10^3/uL MPV (7.4-11.4) fL Neut # (Auto) (1.5-6.6) 10^3/uL Lymph # (Auto) (1.5-3.5) 10^3/uL [place] # (Auto) (0.0-1.0) 10^3/uL Eos # (Auto) (0.0-0.7) 10^3/uL Baso # (Auto) (0.0-0.1) 10^3/uL Absolute Nucleated RBC x10^3/uL Nucleated RBC % /100WBC VBG pH (7.31-7.41) Ionized Calcium (1.09-1.30) mmol/L Sodium (135-145) mmol/L Potassium (3.5-4.5) mmol/L Chloride (101-111) mmol/L Carbon Dioxide (21-32) mmol/L Anion Gap (6-13) BUN (6-20) mg/dL Creatinine (0.6-1.3) mg/dL Estimated GFR (MDRD) (>89) Glucose (74-104) mg/dL Estimat Average Glucose 108 H (70-100) mg/dL Hemoglobin A1c % 5.4 (4.27-6.07) % Calcium (8.5-10.3) mg/dL Phosphorus (2.5-5.0) mg/dL Magnesium (1.7-2.3) mg/dL Total Bilirubin (0.2-1.0) mg/dL AST (10-42) IU/L ALT (10-60) IU/L Alkaline Phosphatase (42-121) IU/L Total Protein (6.4-8.9) g/dL Albumin (3.2-5.5) g/dL Globulin (2.1-4.2) g/dL Albumin/Globulin Ratio (1.0-2.2) Diagnostic Imaging Diagnostic Imaging Results: positive Final report reviewed Sepsis Event Note (H) Evaluation Current Stage of Sepsis: Septic shock Possible source of Sepsis: positive GI tract/intra-abdominal Sepsis Criteria Sepsis Criteria: WBC count greater than 10% bands, WBC count greater than 12,000 or less than 4000, SBP less than 90 mmHg and Renal: urine output less than 0.5ml/kg/hr for 2 hours or creatinine gr Assessment/Plan Problem List (1) Ischemia, bowel: Impression: Harvinder Wayne is a 89 year old male with a history of hypertension that presented to the ER with LLQ abdominal pain on 07/14 PM. He was admitted 07/15 AM for a bowel ischemia and obstruction accompanied by an incarcerated left inguinal hernia. On 07/15 extended left hemicolectomy with end colostomy completed with no complications. Necrotized transverse and left colon visualized during operation. Ischemic bowel removed. Pt transferred in critical condition to ICU, intubated and on pressers. He was extubated yesterday (07/16). Discontinued Levophed and vasopressin 07/16. Today is day 2 post-op. His vital signs remained stable. He is down to 2L O2 nasal cannula and satting well. He is continuing to clear secretions better today. His stoma appears more necrotic today along the superior aspect. Some discoloration along inferior aspect of his midline dressing. Surgery is following. No return of bowel function. His white count is elevated from yesterday intervally from 18.3 to 19.6. His neutrophil count is unchanged. No fevers overnight. Blood pressure 123/43, has remained stable off of pressors. Continuing to make urine. Alert and oriented. Pain reasonably controlled with IV tylenol. - Continue to monitor IOs, vitals, and labs (CBC and CMP) - Continue to monitor colostomy healing (2) Bowel obstruction: Impression: Extended left hemicolectomy with end colostomy completed on 07/15 with no complications. No return of bowel function yet. No gas passing from his stoma. Minimal liquidy output from ostomy. Waiting for return of bowel function. - Continue NG tube - Diet: NPO until return of bowel function Qualifiers: Intestinal obstruction extent: partial Intestinal obstruction type: u nspecified Qualified Code(s): K56.600 - Partial intestinal obstruction, unspecified as to cause (3) Left inguinal hernia: Impression: Initially reduced in ER on 07/15, but is persistent. Suspect hernia incarceration was the main furniture mover driver of his bowel ischemia as above. Persistent left inguinal hernia is at risk for incarceration. - monitor pt closely - followup OP for repair (4) Septic shock: Impression: Resolved. Suspect the etiology is septic shock likely from his intra-abdominal source. He has been treated with meropenem. Did have softening BP prior to going to the OR. He has received ample fluid. He is making urine. Patient was able to be weaned from Levophed and vasopressin on 07/16. MAP 89 mmHg. Extubated 07/16 and oxygenating well. Fever present 07/16. No fever present today (07/17). No growth in blood cultures. WBC elevated, but improved since admission. Neutrophil count unchanged. 07/16 XR impression: "Moderate vascular congestion and bilateral pleural effusions" - Continue to monitor O2 - Continue to monitor CBC, BMP every morning - Continue meropenem, may need dose adjustment with improved renal function - Continue following NISREEN output, appreciate general surgery (5) Metabolic acidosis: Impression: Resolved. Overall of unclear etiology. His lactate was only minimally elevated. He was largely hypochloremic. He received bicarb and ventilation, and subsequently became alkalotic. He has an arterial line in place that is not reading well regarding BP, but continues to draw arterial blood well. - Monitor metabolic panel in a.m. - Treat problems as above and below (6) KSENIA (acute kidney injury): Impression: Resolved. Received ample fluids and his resuscitative efforts. Started on maintenance fluids with D5 1/2 NS His creatinine is now 0.8. - Continue daily BMP - Avoid nephrotoxins as able (7) Hypertension: Impression: Chronic problem. Home meds include amlodipine 5 mg, lisinopril 10 mg, doxazosin 8 mg twice daily - Holding home antihypertensives until bowel function returns. (8) Asthma: Impression: Patient was able to extubate rather successfully. Continues to have some wheeze on his exam postextubation. Prior to this hospitalization, uses Wixela inhaler as needed. Resumed home inhalers 07/16 - Continue home inhalers - DuoNebs PRN - Will start expectorants as soon as he has returned of bowel function (9) Anxiety: Impression: Prior to his hospitalization patient was on 0.125 to 0.25 mg p.o. as needed alprazolam. Pt anxious stating he "has met with his maker and is ready to ." At this time, patient is recovering well. MD counselled patient and family at bedside. - Start IV lorazepam (10) BPH (benign prostatic hyperplasia): Impression: Hoyos currently in place postoperatively. Trial of void 07/17 - Currently NPO, will resume doxazosin once taking oral intake. I spent a total of 57 minutes in the care of this patient today. This time was spent reviewing labs, vital signs, imaging, interviewing and examining the patient, and discussing plan of care with them and their other care providers. The patient remains critically ill in the ICU. He can likely stepdown today or tomorrow depending on bed needs.
[2025-07-17] MEDS: MORPHINE 2 MG/ML CARPUJECT IVP PRN (08:24)
--- NOTE | 2025-07-17 09:42 | PROVIDER PROGRESS NOTE ---
Subjective General Admit Date: 07/16/25 Procedure Date: 07/15/25 Post Op Days: 2 Procedure Performed: Exp lap with transverse & left colectomy, end colostomy, Hartmanns, drain, Wound Assessment Wound/Incisions: positive Dressing dry and intact Drain Type: 19 Fr Ranulfo in the LEFT gutter Drain Output Description: Serosanguinous Review of Systems Status of ROS: 10 or more systems reviewed and unremarkable except as noted in history and below Exam Exam Vital Signs: Vital Signs x48h Temp Pulse Pulse Resp BP Pulse Ox O2 Flow Rate 07/17/25 09:00 91 18 123/63 95 2 07/17/25 08:00 36.8 C 90 20 113/89 91 L 07/17/25 07:00 93 20 123/43 L 977 H 2 07/17/25 06:00 88 20 125/53 L 97 2 07/17/25 05:00 87 16 123/59 L 96 2 07/17/25 04:35 91 L 07/17/25 04:00 36.6 C 86 18 117/61 96 2 07/17/25 03:00 89 18 124/54 L 96 2 07/17/25 02:00 90 19 116/60 95 2 Constitutional normal general appearance and no apparent distress HENMT oropharynx normal moist mucous membranes Eyes PERRL, conjunctivae normal and no scleral icterus Neck/C-Spine visual inspection normal Respiratory normal respiratory effort Cardiovascular normal heart rate noted and regular rhythm noted Gastrointestinal Mildly distended abdomen, soft, appropriately TTP, midline with dressing in place, LLQ NISREEN with serosanguineous output, R sided colostomy with dusky appearing superior pole, serosanguineous in the bag. Extremities no edema Neurology speech normal Psychiatry thought process normal and cooperative Skin skin color normal Impression/Plan Problem List (1) Septic shock: (2) Metabolic acidosis: (3) KSENIA (acute kidney injury): (4) Ischemia, bowel: (5) Bowel obstruction: Qualifiers: Intestinal obstruction extent: partial Intestinal obstruction type: unspecified Qualified Code(s): K56.600 - Partial intestinal obstruction, unspecified as to cause (6) Left inguinal hernia: (7) Hypertension: (8) Asthma: (9) Anxiety: (10) BPH (benign prostatic hyperplasia): Plan 89 yo M who presented to the ED on 07/14 with bowel obstruction due to inguinal hernia which was reduced by the ED. He was subsequently admitted for observation without resolution of his pain and continued bowel obstruction concerning for ongoing pathology so he was taken to the OR on 07/15. In the OR he was discovered to have a necrotic and distended left colon and transverse colon r equiring colectomy with end colostomy. He was then admitted to the ICU intubated, sedated on pressors. He has since recovered and is off pressors and extubated in the ICU without bowel function and still having high NGT output. Neuro - Pain control as needed - Re-orientate frequently to prevent delirium CV - Off pressors, BP appropriate - HR NL, continue to monitor Resp: - Extubated to nasal cannula - Consider Chest PT - Wean O2 as tolerated - Pulmonary toilet GI - Continue NGT to suction - Await ROBF, will continue to monitor ostomy - Continue protonix for GI ppx - UOP adequate, Cr normal, continue to monitor - Consider D/c Hoyos ID - WBC downtrending - Abx per primary Heme - Monitor Hgb, slow downtrended expected post surgical - Consider restart DVT ppx Lines/Drains - Maintain NISREEN - TLC per primary - OK for d/c Hoyos Dispo - Consider CM for SNF coordination eventually, currently still requires hospitalization for his critical illness but may require SNF on d/c due to adva nced age and large surgery with new ostomy. Surgery will continue to follow closely and coordinate recommendations with primary team
[2025-07-17] MEDS ORDERED: MORPHINE 2 MG/ML CARPUJECT IVP PRN (18:18)
--- NOTE | 2025-07-17 19:01 | ADVANCE CARE PLANNING NOTE ---
Advance Care Planning Planning Encounter Date: 07/17/25 Time: 18:59 Diagnosis for Encounter (1) Ischemia, bowel: (2) Bowel obstruction: Qualifiers: Intestinal obstruction extent: partial Intestinal obstruction type: unspecified Qualified Code(s): K56.600 - Partial intestinal obstruction, unspecified as to cause (3) Left inguinal hernia: (4) Septic shock: (5) Metabolic acidosis: (6) KSENIA (acute kidney injury): (7) Hypertension: (8) Asthma: (9) Anxiety: (10) BPH (benign prostatic hyperplasia): Encounter Additional Discussion: I had a long conversation with the patient at bedside and his family surrounding. Had further conversations outside of the room with his children and . The patient is somnolent and fatigued from his illness, and does not open his eyes during our conversation. He vocalizes but with short phrases. He continually requests to "let me ". Patient is an 89-year-old male who came in with ischemic bowel and had a section of his colon removed with resultant colostomy earlier this week. He was previously healthy, very gregarious. His family shares with me that he was typically the person who would go and visit other people in the hospital. He was "always life of the constitution party". He is struggling with his acute decompensation. He is having an existential struggle. He says he is ready to . He says he is "met his maker" and has excepted . As I explained to the patient and his family, I can respect his position, but he is otherwise objectively improving here on antibiotics. He is off blood pressure medications. He was extubated yesterday and is on minimal oxygen support now via nasal cannula. There are not necessarily treatments at this time that I can de-escalate that would reasonably expedite his demise. That said, he is on antibiotics for his septic shock, he is improving appropriately on those. His white count is not improving as much today as it did the days prior. His neutrophil count has remained stable. I discussed with his family that I do not think it is appropriate to withdraw any particular treatments at this time. I had like to offer him some more anxiolytics and make sure his pain is controlled at this point in time, accounting for the fact that narcotics may slow his bowel transit and lead to delayed return of bowel function. Given his desire to extend his comfort, it seems reasonable to make these exceptions. I have discussed with his family and agree that if he were to worsen including if he is having mounting abdominal pain, if his ostomy further necrosis, if he has worsening blood pressure, if he has worsened respiratory failure, or if his leukocytosis is mounting, it would be reasonable at that time to not further escalate his care. He should not go back to the OR based on his stated wishes now and prior to surgery of excepting a natural were to come. We can manage his symptoms at that time and we will transition him to comfort measures only. - Starting anxiolytics and IV narcotics for comfort - Await return of bowel function - If he were to decompensate, would transition immediately to comfort measures only - Patient is DNR/DNI - Needs POLST completed prior to discharge if he survives - Patient requested his finance officer come to bedside, and I think this is a good idea Code Status: Do Not Attempt Resuscitation Time spent on advance care plannin
[2025-07-17] MEDS: LORazepam 2 MG/ML VIAL IVP PRN (22:44)
[2025-07-17] MEDS ORDERED: METOPROLOL 5 MG/5 ML VIAL IVP ONE (23:41)
[2025-07-17] MEDS: METOPROLOL 5 MG/5 ML VIAL IVP ONE (23:48)
[2025-07-17] MEDS: SODIUM CHLORIDE 0.9% 500 ML IV ONE (23:49)
--- NOTE | 2025-07-17 23:59 | PROVIDER PROGRESS NOTE ---
Subjective General Admit Date: 07/16/25 Procedure Date: 07/15/25 Post Op Days: 3 Procedure Performed: Exp lap with transverse & left colectomy, end colostomy, Hartmanns, drain, Other Other Information/Narrative: Patient extubated and off pressors. Responded verbally and appropriately this morning when seen and even better when I visited him this afternoon. Wound Assessment Wound/Incisions: positive Dressing dry and intact Drain Type: 19 Fr Ranulfo in the LEFT gutter Drain Output Description: Serosanguinous Review of Systems Although the patient is responding verbally it is not to the point where a proper ROS can be completed. Exam Exam Vital Signs: Vital Signs x48h Temp Pulse Pulse Resp BP BP Pulse Ox 07/18/25 00:15 106 H 19 98/69 95 07/18/25 00:05 100 23 117/67 95 07/18/25 00:00 105 H 28 H 104/66 94 07/17/25 23:55 37.3 C 112 H 24 102/64 94 07/17/25 23:48 139 H 127/82 07/17/25 23:00 127 H 24 127/82 97 07/17/25 22:00 96 20 133/66 H 93 07/17/25 21:00 93 21 133/66 H 97 07/17/25 20:00 37.4 C 92 17 137/72 H 95 07/17/25 19:00 97 14 132/70 H 96 07/17/25 19:00 95 14 132/70 H 96 07/17/25 18:00 97 21 134/67 H 96 07/17/25 17:00 94 93 H 122/80 93 O2 Flow Rate 07/18/25 00:15 4 07/18/25 00:05 4 07/18/25 00:00 4 07/17/25 23:55 4 07/17/25 23:48 07/17/25 23:00 4 07/17/25 22:00 3 07/17/25 21:00 3 07/17/25 20:00 3 07/17/25 19:00 2 07/17/25 19:00 3 07/17/25 18:00 2 07/17/25 17:00 2 General: 89-year old male, appears younger than stated age, extubated and responding appropriately, coughing upon command better than I expect, seen with nurse only in AM and with family present in PM HEENT: Normocephalic, atraumatic, extraocular movement intact, mucous membranes pink and moist, sclera anicteric and not injected, endotracheal tube in place, NG tube in place Neck: Central line in place Cardiac: Regular rate and rhythm without rub, gallop, or murmur Chest: Clear to auscultation bilaterally anterolaterally with ventilatory motion Abdomen: Soft, cannot evaluate tenderness, absent bowel sounds, ostomy continues a bit dark at superior aspect with the inferior 2/3 pink and viable, no productive yet, midline wound dressed with Mepilex dressing, 19 Fr Ranulfo drain in LLQ - serosanguinous, some bowel sounds during the PM vist Genitourinary: Deferred Rectal: Deferred Extremities: No gross neurovascular problem, no clubbing, cyanosis or edema Gait: Not evaluated - patient intubated and sedated Psychiatric: Patient intubated and sedated ABX Reporting Has patient been on IV antibiotics over the past 48 hours?: Yes Impression/Plan Problem List (1) Ischemia, bowel: (2) Bowel obstruction: Qualifiers: Intestinal obstruction extent: partial Intestinal obstruction type: unspecified Qualified Code(s): K56.600 - Partial intestinal obstruction, unspecified as to cause (3) Left inguinal hernia: (4) Septic shock: (5) Metabolic acidosis: (6) KSENIA (acute kidney injury): (7) Hypertension: (8) Asthma: (9) Anxiety: (10) BPH (benign prostatic hyperplasia): Plan D2 status post extended colectomy to include transverse colon and LEFT colon, with end ascending colon colostomy, Hartmanns, drain in LEFT gutter, umbilical herniorrhaphy 1) FEN Continues on a bicarb drip. Urine output appropriate. Expect that there will be a day 3 diuresis. 2) ID D3/7 Meripenem. I would continue to push for broad spectrum coverage in the patient with the clinical presentation. When his WBC normalizes or near nor malizes can consider changing antibiotic coverage. Continued decrease in WBC when compared to presentation. Patient is at risk for secondary infection. 3) Cardiac Off pressors and bicarb drip and maintaining good blood pressure and urine output. Not tachycardic 4) Vent Extubated now with supplemental O2. Okay cough but could stand to improve. Help with inhalers as needed. IS and pulmonary toilet. 5) DVT Prophylaxis physical and consider chemical. 6) Wound Closed with jennifer but there is a greater than normal risk of subcutaneous infection. Should this occur or if there is suspicion I will pull a few jennifer (and not open the entire wound) to promote drainage. Ostomy teaching when appropriate. Drainage is serosanguinous from drain - not purulent. The dressing was changed today and there is no new drainage or concern. I am following the ostomy discoloration for potential necrosis. 7) Bowel Await bowel function. Until then NG to LCS. 8) Renal Numbers improving and with fluid shifts I expect continued improvement. Hoyos in place. 9) Pain Appears controlled but there was a question of patient's anxiety. If it is a continued and persistent issue recommend smallest dose benzodiazepine. 10) Placement If there is continued improvement believe that patient would require SNF but will hold off now as this is a bit premature. In summary patient improving. Will continue to follow and care for patient in concert with our internal medicine colleagues.
[2025-07-18 05:21] LABS: HCT - HEMATOCRIT 35.6 % (42.0-52.0); HGB - HEMOGLOBIN 11.6 g/dL (14.0-18.0); MEAN PLATELET VOLUME 10.1 fL (7.4-11.4); NRBC ABSOLUTE COUNT (AUTO) 0.02 x10^3/uL; NUCLEATED RED BLOOD CELLS AUTO 0.1 /100WBC; PLT - PLATELET COUNT 263 10^3/uL (130-450); RED CELL DISTRIBUTION WIDTH 13.6 % (12.0-15.0)
[2025-07-18 05:26] LABS: VBG PH 7.359 (7.31-7.41)
[2025-07-18 05:42] LABS: ALT ALANINE AMINOTRANSFERASE 24.0 IU/L (10-60); AST ASPARTATE AMINOTRANSFERASE 36.0 IU/L (10-42); BUN - BLOOD UREA NITROGEN 18.0 mg/dL (6-20); CARBON DIOXIDE - CO2 30.0 mmol/L (21-32); CREATININE 0.7 mg/dL (0.6-1.3); GFR - MDRD 106.0 (>89); PHOSPHORUS 2.1 mg/dL (2.5-5.0)
[2025-07-18] MEDS: DEXTROSE 5%-0.45% NACL 1,000 ML IV SCH (07:26)
[2025-07-18] MEDS: SODIUM PHOSPHATE 15 MMOL in SODIUM CHLORIDE 0.9% 250 ML IV ONE (07:39)
[2025-07-18] MEDS: LACTATED RINGERS 1,000 ML IV ONE (08:03)
[2025-07-18] MEDS: HEPARIN 5,000 UNIT/ML VIAL SUBQ SCH (08:09)
--- NOTE | 2025-07-18 08:40 | PROVIDER PROGRESS NOTE ---
<Statement entered by Moshe Reyes, DO - 07/18/25 17:03> I was present with the [employer] student on the hospitalist service. I personally verified the history of present illness and performed the physical examination and medical decision making. I have verified the students documentation for this encounter and agree with the plan of care below. In addition 89-year-old gentleman who came in with ischemic bowel s/p resection C/B septic shock now on meropenem. He is off pressors and extubated now for couple of days. Feeling better. He is intervally improving. His mentation is better today. He was able to work with PT. Unfortunately he self elected to remove his central line and NG tube today. So far not having any significant nausea. Still awaiting full return of bowel function. He is on D5 half NS. He had new onset atrial fibrillation with RVR this morning. He has been started on beta-blockers, with good response. His heart rate actually came down a lot with a fluid bolus this morning. Getting TTE for further evaluation. If no significant cardiomyopathy, this may be just an acute response to his critical illness. - Stepdown out of ICU - Monitor CBC and CMP a.m. - Continue IV fluids - Will start on PPN tonight with central line removed - Monitor for return of bowel function, not yet - Wean oxygen as tolerated - Pulmonary toileting - TTE and scheduled metoprolol for A-fib with RVR, new diagnosis - On VTE prophylaxis, may need to start on DOAC if A-fib persistent Subjective Prog Note Date Prog Note Date: 07/18/25 Prog Note Time: 09:01 Subjective Pt reports feeling: No change Subjective: Harvinder Wayne is a 89 year old male with a history of hypertension that was admitted 07/15 for a bowel ischemia and obstruction accompanied by an incarcerated left inguinal hernia. RN notes that the patient has been a bit delirious since receiving Ativan late last night. He has been talking to people that aren't there. Pt removed his O2, central line, and NGT. No changes in bowel function. Continuing to clear secretions. He says he has mild abdominal pain. ROS: Denies nausea, vomiting, fever, chills, night sweats, changes in bowel habits Current Medications Current Medications Current Medications: Current Medications Generic Name Dose Route Start Last Admin Trade Name Freq PRN Reason Stop Dose Admin Albuterol 2.5 mg 07/15/25 14:27 07/16/25 13:14 Albuterol Neb 2.5 Mg/3 Ml INH 2.5 mg Q4HR PRN Administration Wheezing Chlorhexidine Gluconate 15 ml 07/15/25 14:27 07/18/25 08:02 Chlorhexidine Gluconate 15 Ml Udc PO 15 ml BID TOMY Administration Heparin Sodium (Porcine) 5,000 unit 07/18/25 09:00 07/18/25 08:09 Heparin 5,000 Unit/Ml Vial SUBQ 5,000 unit BID TOMY Administration Acetaminophen 1,000 mg in 100 mls @ 400 mls/hr 07/15/25 20:53 07/17/25 16:23 Acetaminophen IV Infused Q6HR PRN Infusion FEVER > 100.5 F Sodium Phosphate 15 mmol/ 255 mls @ 63.75 mls/hr 07/18/25 07:00 07/18/25 07:39 Sodium Chloride IV 07/18/25 10:59 63.75 mls/hr ONCE ONE Administration Protocol Dextrose/Sodium Chloride 1,000 mls @ 125 mls/hr 07/18/25 08:00 07/18/25 07:26 D5.45ns IV 125 mls/hr .Q8H TOMY Administration Lactated Ringer's 1,000 mls @ 999 mls/hr 07/18/25 07:45 07/18/25 08:03 Lr IV 07/18/25 08:45 999 mls/hr ONCE ONE Administration Multivitamins 10 ml/ Zinc/ 2,011 mls @ 83 mls/hr 07/18/25 19:00 Copper/Manganese/Selenium 1 ml IV / Amino Acids/Electrolytes 1900 [facility] Protocol Fat Emulsion Intravenous 250 mls @ 21 mls/hr 07/18/25 19:00 Intralipid 20% IV 1900 [facility] Ipratropium [place] 0.5 mg 07/15/25 14:27 07/16/25 13:14 Ipratropium 0.2 Mg/Ml Neb INH 0.5 mg Q6HR PRN Administration Wheezing Meropenem 1 gm 07/15/25 21:00 07/18/25 08:02 Meropenem 1 Gm Vial IVP 1 gm Q12H TOMY Administration Morphine Sulfate 2 mg 07/16/25 15:10 07/17/25 08:24 Morphine 2 Mg/Ml Carpuject IVP 2 mg Q2HR PRN Administration Severe Pain (Level 7-10) Morphine Sulfate 2 mg 07/17/25 18:18 Morphine 2 Mg/Ml Carpuject IVP Q2HR PRN Severe Pain (Level 7-10) Ondansetron HCl 4 mg 07/15/25 06:58 07/16/25 16:49 Ondansetron 4 Mg/2 Ml Vial IVP 4 mg Q6HR PRN Administration Nausea / Vomiting Pantoprazole Sodium 40 mg 07/15/25 14:27 07/18/25 06:27 Pantoprazole 40 Mg Vial IVP 40 mg QDAC TOMY Administration Prochlorperazine Edisylate 10 mg 07/15/25 14:27 Prochlorperazine 10 Mg/2 Ml Vial IVP Q6HR PRN Nausea / Vomiting Sodium Chloride 10 ml 07/15/25 17:00 07/18/25 08:03 Sodium Chloride Flush 0.9% 10 Ml Syringe IVP 10 ml 0100,0900,1700 TOMY Administration Sodium Chloride 10 ml 07/15/25 14:27 07/18/25 06:27 Sodium Chloride Flush 0.9% 10 Ml Syringe IVP 10 ml PRN PRN Administration NEEDED PER PROVIDER ORDERS Sterile Water 20 ml 07/15/25 21:00 07/18/25 08:02 Water For Injection,Sterile 10 Ml Vial MC 20 ml BID TOMY Administration Objective Vital Signs/Intake & Output Reviewed Vital Signs: Yes Vital Signs: Vital Signs x48h Temp Pulse Resp BP Pulse Ox O2 Flow Rate 07/18/25 08:00 37.0 C 123 H 21 130/89 90 L 3 07/18/25 07:00 121 H 23 112/77 91 L 3 07/18/25 06:00 123 H 27 H 126/73 95 3 07/18/25 05:00 37.2 C 129 H 26 H 115/72 95 3 07/18/25 04:00 114 H 25 H 130/61 96 3 07/18/25 03:00 118 H 21 123/84 94 3 07/18/25 02:00 119 H 24 111/81 95 3 07/18/25 01:30 108 H 23 110/74 96 3 07/18/25 01:00 109 H 23 117/70 95 3 07/18/25 00:45 112 H 24 95/71 95 4 Intake & Output: Intake & Output 07/15/25 07/16/25 07/17/25 07/18/25 23:59 23:59 23:59 23:59 Intake Total 51868 / 53144 4229 / 4229 1370 / 1370 540 / 540 Output Total 2417 / 2417 2580 / 2580 2720 / 2720 1245 / 1245 Balance 9116 / 9116 1649 / 1649 -1350 / -1350 -705 / -705 Weight (kg) 101 kg 103 kg 106 kg 106.5 kg Objective General Appearance: positive No acute distress and Alert Respiratory: positive Chest non-tender and No respiratory distress; negative Wheezes, Rales or Rhonchi Cardiovascular: positive Regular rate & rhythm, No murmur and No gallop; negative Friction rub Peripheral Pulses: 2+: Radial (R), 2+: Radial (L), 2+: Dorsalis pedis (R) and 2+: Dorsalis pedis (L) Abdomen: positive Tenderness, Abnml bowel sounds (Diminished bowel sounds) and Other (Slight abdominal distension. Ostomy in right abdomen looks the same as yesterday: Minimal liquidy output from ostomy. Stoma appears necrotic along the superior aspect. Some discoloration along inferior aspect of his midline dressing. NISREEN drain in left abdomen. ); negative No distention (slight), Guarding or Rebound Skin: positive Color nml Extremities: positive No pedal edema Neurologic/Psychiatric: positive Mood/affect nml; negative Oriented x3 (Pt is aware he is in a medical setting, but is unsure why he is here. He is talking to people who aren't there.) Lab Results 07/18/25 05:08 07/18/25 05:08 Other Labs: Lab Results x24hrs 07/18/25 07/18/25 Range/Units 05:08 00:06 WBC 17.4 H (4.8-10.8) x10^3/uL RBC 3.55 L (4.70-6.10) 10^6/uL Hgb 11.6 L (14.0-18.0) g/dL Hct 35.6 L (42.0-52.0) % MCV 100.3 H (80.0-94.0) fL MCH 32.7 H (27.0-31.0) pg MCHC 32.6 (32.0-36.0) g/dL RDW 13.6 (12.0-15.0) % Plt Count 263 (130-450) 10^3/uL MPV 10.1 (7.4-11.4) fL Neut # (Auto) 15.1 H (1.5-6.6) 10^3/uL Lymph # (Auto) 1.2 L (1.5-3.5) 10^3/uL [place] # (Auto) 1.0 (0.0-1.0) 10^3/uL Eos # (Auto) 0.0 (0.0-0.7) 10^3/uL Baso # (Auto) 0.0 (0.0-0.1) 10^3/uL Absolute Nucleated RBC 0.02 x10^3/uL Nucleated RBC % 0.1 /100WBC VBG pH 7.359 (7.31-7.41) Ionized Calcium 1.16 (1.09-1.30) mmol/L Sodium 142 (135-145) mmol/L Potassium 4.2 4.1 (3.5-4.5) mmol/L Chloride 108 (101-111) mmol/L Carbon Dioxide 30 (21-32) mmol/L Anion Gap 4.0 L (6-13) BUN 18 (6-20) mg/dL Creatinine 0.7 (0.6-1.3) mg/dL Estimated GFR (MDRD) 106 (>89) Glucose 72 L (74-104) mg/dL Calcium 7.5 L (8.5-10.3) mg/dL Phosphorus 2.1 L (2.5-5.0) mg/dL Magnesium 2.2 2.2 (1.7-2.3) mg/dL Total Bilirubin 0.6 (0.2-1.0) mg/dL AST 36 (10-42) IU/L ALT 24 (10-60) IU/L Alkaline Phosphatase 52 (42-121) IU/L Total Protein 4.9 L (6.4-8.9) g/dL Albumin 2.5 L (3.2-5.5) g/dL Globulin 2.4 (2.1-4.2) g/dL Albumin/Globulin Ratio 1.0 (1.0-2.2) Diagnostic Imaging Diagnostic Imaging Results: positive Final report reviewed Sepsis Event Note (H) Evaluation Current Stage of Sepsis: Septic shock Possible source of Sepsis: positive GI tract/intra-abdominal Sepsis Criteria Sepsis Criteria: WBC count greater than 10% bands, WBC count greater than 12,000 or less than 4000, SBP less than 90 mmHg and Renal: urine output less than 0.5ml/kg/hr for 2 hours or creatinine gr Assessment/Plan Problem List (1) Ischemia, bowel: Impression: Harvinder Wayne is a 89 year old male with a history of hypertension that presented to the ER with LLQ abdominal pain on 07/14 PM. He was admitted 07/15 AM for a bowel ischemia and obstruction accompanied by an incarcerated left inguinal hernia. On 07/15 extended left hemicolectomy with end colostomy completed with no complications. Necrotized transverse and left colon visualized during operation. Ischemic bowel removed. Pt transferred in critical condition to ICU, intubated and on pressers. He was extubated 07/16. Discontinued Levophed and vasopressin 07/16. Today is day 3 post-op. His vital signs remained stable. He has remained stable off of pressors. He is tachycardic which is being managed with IV fluids. He is down to 2L O2 nasal cannula and satting well. He is continuing to clear secretions better today. His stoma appears about the same as yesterday with some necrosis along the superior aspect. No gas passing from his stoma. Minimal liquidy output from ostomy. Surgery is following. No return of bowel function. His white count is down from yesterday 19.6 to 17.4. His neutrophil count is also down. No fevers overnight. Continuing to make urine. Alert, but not oriented. He has been delirious since starting lorazepam last night. O2, central line, and NGT where electively removed by the patient this morning. Surgery contacted by RN. Plan is to not replace NGT and trial bowel function. Pain reasonably controlled with IV tylenol. - Continue to monitor IOs, vitals, and labs (CBC and CMP) - Continue to monitor colostomy healing. Surgery following. - Continue Dextrose 5%-0.45% NaCl 125 mL/hr IV - NGT discontinued, Trial bowel function - Diet: NPO until return of bowel function; start PPN tonight (2) Bowel obstruction: Impression: Resolved. See detailed notes above. Qualifiers: Intestinal obstruction extent: partial Intestinal obstruction type: u nspecified Qualified Code(s): K56.600 - Partial intestinal obstruction, unspecified as to cause (3) Left inguinal hernia: Impression: Initially reduced in ER on 07/15, but is persistent. Suspect hernia incarceration may be the main star route mail driver of his bowel ischemia as above. Persistent left inguinal hernia is at risk for incarceration. - monitor pt closely - followup OP for repair (4) Atrial fibrillation with RVR: Impression: Pt developed Afib with RVR early this AM. Pt asymptomatic. Pt given 1 L LR bolus. - Continue to monitor on tele - Get TTE to r/o structural heart disease - Start scheduled lopressor 2.5mg qid - Continue fluids as above (5) Septic shock: Impression: Resolved. Suspect the etiology is septic shock likely from his intra-abdominal source. He has been treated with meropenem. Did have softening BP prior to going to the OR. He has received ample fluid. He is making urine. Patient was able to be weaned from Levophed and vasopressin on 07/16. MAP 89 mmHg. Extubated 07/16 and oxygenating well. Fever present 07/16. No fever present today (07/17). No growth in blood cultures. WBC elevated, but improved since admission. Neutrophil count unchanged. 07/16 XR impression: "Moderate vascular congestion and bilateral pleural effusions" Pt electively removed cnetral line 07/18. - Continue to monitor O2 - Continue to monitor CBC, BMP every morning - Continue meropenem 1 gm IVP q12hrs - Continue following NISREEN output, appreciate general surgery (6) Metabolic acidosis: Impression: Resolved. Overall of unclear etiology. His lactate was only minimally elevated. He was largely hypochloremic. He received bicarb and ventilation, and subsequently became alkalotic. He has an arterial line in place that is not reading well regarding BP, but continues to draw arterial blood well. - Monitor metabolic panel as above - Treat problems as above and below (7) KSENIA (acute kidney injury): Impression: Resolved. Received ample fluids and his resuscitative efforts. Started on maintenance fluids with D5 1/2 NS His creatinine is now 0.8. - Continue daily BMP as above - Avoid nephrotoxins as able (8) Hypertension: Impression: Chronic problem. Home meds include amlodipine 5 mg, lisinopril 10 mg, doxazosin 8 mg twice daily - Holding home antihypertensives until bowel function returns. (9) Acute hypoxemic respiratory failure: Impression: Pt has developed acute hypoxemic respiratory failure in that may be due to post- intubation delayed improvent secondary to asthma, aspiration pneumonia, fluid overload. Pt O2 sat on RA 90%. Goal >92%. Currently 93% on 2L O2 nasal cannula. - Continue to monitor O2 as above - Continue home inhalers and DuoNebs as below - Repeat chest XR today - Pulmonary toileting - Wean o2 as tolerated, goal sat >92% - Abx as above - TTE as above (10) Asthma: Impression: Patient was able to extubate rather successfully. Continues to have some wheeze on his exam postextubation. Prior to this hospitalization, uses Wixela inhaler as needed. Resumed home inhalers 07/16 - Continue home inhalers - DuoNebs PRN - Will start expectorants as soon as he has returned of bowel function (11) Anxiety: Impression: Prior to his hospitalization patient was on 0.125 to 0.25 mg p.o. as needed alprazolam. 07/17 Pt anxious. He stated he "has met with his maker and is ready to ." At this time, patient is recovering well. MD counselled patient and family at bedside. Pt given Lorazepam IV 07/17 2244. RN reports that he has been delirious since receiving Lorazepam. He has been having visual and auditory hallucinations. He removed his O2, central line, and NGT. - Lorazepam discontinued - Continue monitoring (12) BPH (benign prostatic hyperplasia): Impression: Hoyos currently in place postoperatively. Trial of void 07/17 - Currently NPO, will resume doxazosin once taking oral intake. I spent a total of 61 minutes in the care of this patient today. This time was spent reviewing labs, vital signs, imaging, interviewing and examining the patient, and discussing plan of care with them and their other care providers. Extensive conversations with his family today. Extensive monitoring after he pulled his central line and NG tube. New onset A-fib requiring parenteral medication management. Treating with parenteral narcotics as needed for pain. Patient stands at high risk of decompensation including significant morbidity and . He has already lost normal function of his bowel this hospitalization. All of this given his severe acute illness.
[2025-07-18] MEDS: METOPROLOL 5 MG/5 ML VIAL IVP SCH (13:32)
[2025-07-18] MEDS: FAT EMULSION 20% 250 ML IV SCH (18:09)
[2025-07-18] MEDS: PPN (CLINIMIX E 4.25/5) 2,000 ML with MULTIVITAMIN 10 ML, TRACE ELEMENTS 1 ML IV SCH (18:09)
--- NOTE | 2025-07-18 18:22 | ECHO Report ---
Version: 1 Study ID: [id number] [address] Adult Echocardiogram Report Name: LIN STOVALL Study Date: 07/18/2025, 4: 11 PM BP: 129 / 58 mmHg Patient Location: ICU^2302^01 HR: 91 bpm : 1935 (MM/DD/YYYY) Gender: Male Height: 67 in Age: 89 Years Weight: 212 lb BSA: 2.07 m² Reason For Study: New Afib History: No previous study. Patient Supine, Very poor Left Parasternal windows and some Apical images are foreshortened. There is a post-op Abdominal incision that limits some of Subcostal windows. Interpretation Summary The visual left ventricular ejection fraction is estimated at 55 to 60%. Global left ventricular systolic function is normal. The overall diastolic pattern is one of restrictive filling with reduction of left ventricular compliance and marked elevation of left ventricular filling pressures. The right ventricle is normal in size and function. RVSP > 41 mmHg. The pulmonary artery systolic pressure is mildly increased. Left Ventricle: The left ventricle is grossly normal size. No thrombus seen in the left ventricle. The visual left ventricular ejection fraction is estimated at 55 to 60%. Global left ventricular systolic function is normal. No regional wall motion abnormalities are present. The overall diastolic pattern is one of restrictive filling with reduction of left ventricular compliance and marked elevation of left ventricular filling pressures. Right Ventricle: The right ventricle is normal in size and function. TAPSE is consistent with normal right ventricular function. The tricuspid annular plane systolic excursion (TAPSE) measurement is 2.1 cm. Aortic Valve: The aortic valve is not well visualized. There is mild valvular aortic stenosis. The aortic valve peak velocity is 280 cm/sec. The aortic valve maximum pressure gradient is 31 mmHg. The aortic valve mean pressure gradient is 21 mmHg. No aortic regurgitation is present. Mitral Valve: The mitral valve leaflets are structurally normal with normal motion. No evidence of mitral stenosis is seen. There is trace mitral regurgitation. Tricuspid Valve: The tricuspid valve is structurally normal. There is no tricuspid stenosis. Mild tricuspid regurgitation present. Pulmonic Valve: The pulmonic valve is not well seen. The pulmonic valve was not evaluated on this study. Left Atrium: The left atrial size is normal. Right Atrium: Right atrial size is normal. The IVC is enlarged with < 50% collapse. Atrial Septum: The interatrial septum appears normal, without evidence of shunt by 2D imaging and color Doppler. Aorta: The ascending aorta is normal in size. The aortic arch is not well seen. The sinuses of Valsalva are normal in size. Pulmonary Artery: The pulmonary artery is not well visualized, but is probably normal size. The pulmonary artery systolic pressure is mildly increased. Inferior vena cava dynamics indicate severely elevated right atrial pressures. RVSP > 41 mmHg. Pericardium/Pleural Space: There is no pericardial effusion. Left Ventricle ESV(sp4-el): 54.7 ml Right Ventricle TAPSE: 2.14 cm RV S Carlos: 13.7 cm/sec Atria LA dimension: 4.6 cm LAV(MOD-sp4): 58.3 ml LAV(MOD-sp2): 56.8 ml Diastolic Function MV dec time: 0.19 sec MV E max carlos: 110.8 cm/sec MV A max carlos: 125.8 cm/sec Aortic Valve LVOT diam: 2.31 cm LV V1 mean P.7 mmHg LV V1 mean: 77.6 cm/sec LV V1 VTI: 25.7 cm Ao V2 VTI: 61.6 cm Ao mean P.3 mmHg Ao V2 mean: 221.7 cm/sec LV V1 max: 110.8 cm/sec LV V1 max P.9 mmHg Ao max P.2 mmHg Ao V2 max: 279.1 cm/sec Mitral Valve MV max P.3 mmHg MV V2 max: 125.3 cm/sec MV mean P.4 mmHg MV V2 mean: 89.1 cm/sec MV V2 VTI: 30.0 cm Tricuspid Valve TR max P.1 mmHg TR max carlos: 255.5 cm/sec TV max P.1 mmHg Aorta Ao root diam: 3.5 cm MMode/2D Measurements & Calculations Ao root diam: 3.5 cm BMI: 33.2 kilograms/m² BSA([facility]): 2.17 m² ESV(sp4-el): 54.7 ml LA A4C-A/L: 16.7 cm² LA dimension: 4.6 cm LA ESV-A/L: 48.0 ml LA Vol Index: 52.0 ml/m² LAV(MOD-sp2): 56.8 ml LAV(MOD-sp4): 58.3 ml LVOT diam: 2.31 cm RA A4Cs: 15.2 cm² TAPSE: 2.14 cm Doppler Measurements & Calculations Ao max P.2 mmHg Ao mean P.3 mmHg Ao V2 max: 279.1 cm/sec Ao V2 mean: 221.7 cm/sec Ao V2 VTI: 61.6 cm Lat E/e': 14.7 LV V1 max: 110.8 cm/sec LV V1 max P.9 mmHg LV V1 mean: 77.6 cm/sec LV V1 mean P.7 mmHg LV V1 VTI: 25.7 cm Med E/e': 18.3 MV A max carlos: 125.8 cm/sec MV dec time: 0.19 sec MV DVI-pr: 0.88 MV E max carlos: 110.8 cm/sec MV max P.3 mmHg MV mean P.4 mmHg MV V2 max: 125.3 cm/sec MV V2 mean: 89.1 cm/sec MV V2 VTI: 30.0 cm PA max P.1 mmHg PA V2 max: 100.7 cm/sec RV S Carlos: 13.7 cm/sec TR max P.1 mmHg TR max carlos: 255.5 cm/sec TV max P.1 mmHg Other Measurements & Calculations Ao root area: 9.7 cm² TRAVIS(I,D): 1.75 cm² TRAVIS(V,D): 1.67 cm² LVOT area: 4.2 cm² MV E/A: 0.88 MVA(VTI): 3.6 cm² SV(LVOT): 107.8 ml MD Julia Burris 07/18/2025, 6: 21 PM Ordering Physician: Moshe Reyes Referring Physician: Byron Reyes Performed By: NARESH
[2025-07-18] MEDS ORDERED: FAT EMULSION 20% 250 ML IV SCH (19:00)
[2025-07-18] MEDS ORDERED: PPN (CLINIMIX E 4.25/5) 2,000 ML with MULTIVITAMIN 10 ML, TRACE ELEMENTS 1 ML IV SCH (19:00)
[2025-07-18] MEDS: MELATONIN 3 MG TABLET PO SCH (20:32)
[2025-07-18] MEDS: PROCHLORPERAZINE 10 MG/2 ML VIAL IVP PRN (22:57)
[2025-07-19 04:21] LABS: HCT - HEMATOCRIT 35.5 % (42.0-52.0); HGB - HEMOGLOBIN 11.5 g/dL (14.0-18.0); MEAN PLATELET VOLUME 9.6 fL (7.4-11.4); NRBC ABSOLUTE COUNT (AUTO) 0.00 x10^3/uL; NUCLEATED RED BLOOD CELLS AUTO 0.0 /100WBC; PLT - PLATELET COUNT 242 10^3/uL (130-450); RED CELL DISTRIBUTION WIDTH 13.3 % (12.0-15.0)
[2025-07-19 04:24] LABS: VBG PH 7.492 (7.31-7.41)
[2025-07-19 04:41] LABS: ALT ALANINE AMINOTRANSFERASE 23.0 IU/L (10-60); AST ASPARTATE AMINOTRANSFERASE 25.0 IU/L (10-42); BUN - BLOOD UREA NITROGEN 16.0 mg/dL (6-20); CARBON DIOXIDE - CO2 32.0 mmol/L (21-32); CREATININE 0.6 mg/dL (0.6-1.3); GFR - MDRD 127.0 (>89); PHOSPHORUS 1.8 mg/dL (2.5-5.0)
[2025-07-19 04:52] LABS: INR 1.1 (0.8-1.2); PT - PROTHROMBIN TIME 12.8 secs (9.9-12.6)
[2025-07-19] MEDS: FUROSEMIDE 40 MG/4 ML VIAL IVP ONE (08:27)
--- NOTE | 2025-07-19 08:48 | PROVIDER PROGRESS NOTE ---
<Statement entered by Moshe Reyes, DO - 07/19/25 14:38> I was present with the CHALINO student on the hospitalist service. I personally verified the history of present illness and performed the physical examination and medical decision making. I have verified the students documentation for this encounter and agree with the plan of care below. In addition in brief this is an 89-year-old male who presented with ischemic bowel and had a resection with colostomy after ex lap on day of admission. This was complicated by septic shock, acute hypoxemic respiratory failure. Patient is now extubated, off pressors. Still requiring some oxygen with concern for either pneumonitis, aspiration pneumonia, fluid overload. Got a dose of IV Lasix today. Getting a chest x-ray. He is on antibiotics through 07/22, discussed with pharmacy today and dose was adjusted.. Still not having return of bowel function yet. No gas in his ostomy bag. He no longer has an NG tube or central line. Will await spontaneous return of bowel function today, may trial clears tomorrow. Otherwise he is improving appropriately. Hopeful to work with PT tomorrow. His family was updated at bedside today. Subjective Prog Note Date Prog Note Date: 07/19/25 Prog Note Time: 08:46 Subjective Pt reports feeling: Improved Subjective: Harvinder Wayne is a 89 year old male with a history of hypertension that was admitted 07/15 for a bowel ischemia and obstruction accompanied by an incarcerated left inguinal hernia. Pt had a rough night. He was unable to sleep well d/t pain. He was able to sleep after two doses of morphine 2 mg. His current abdominal pain is moderate and being managed with tylenol IV. He feels like he is improving. He has been coughing and wheezing a bit more since yesterday. RN reports that he has been more motivated today. The patient's ostomy bag leaked last night so it was replaced. The gasket remained intact. ROS: Denies nausea, vomiting, fever, chills, night sweats, changes in bowel habits Current Medications Current Medications Current Medications: Current Medications Generic Name Dose Route Start Last Admin Trade Name Freq PRN Reason Stop Dose Admin Albuterol 2.5 mg 07/15/25 14:27 07/18/25 22:26 Albuterol Neb 2.5 Mg/3 Ml INH 2.5 mg Q4HR PRN Administration Wheezing Chlorhexidine Gluconate 15 ml 07/15/25 14:27 07/19/25 08:28 Chlorhexidine Gluconate 15 Ml Udc PO 15 ml BID TOMY Administration Heparin Sodium (Porcine) 5,000 unit 07/18/25 09:00 07/19/25 08:27 Heparin 5,000 Unit/Ml Vial SUBQ 5,000 unit BID TOMY Administration Acetaminophen 1,000 mg in 100 mls @ 400 mls/hr 07/15/25 20:53 07/19/25 06:23 Acetaminophen IV Infused Q6HR PRN Infusion FEVER > 100.5 F Multivitamins 10 ml/ Zinc/ 2,011 mls @ 83 mls/hr 07/18/25 19:00 07/18/25 18:09 Copper/Manganese/Selenium 1 ml IV 83 mls/hr / Amino Acids/Electrolytes/ 1900 TOMY Administration Dextrose Protocol Fat Emulsion Intravenous 250 mls @ 21 mls/hr 07/18/25 19:00 07/19/25 07:18 Intralipid 20% IV Infused 1900 TOMY Infusion Ipratropium [place] 0.5 mg 07/15/25 14:27 07/16/25 13:14 Ipratropium 0.2 Mg/Ml Neb INH 0.5 mg Q6HR PRN Administration Wheezing Melatonin 3 mg 07/18/25 21:00 07/18/25 20:32 Melatonin 3 Mg Tablet PO 3 mg QPM TOMY Administration Meropenem 1 gm 07/15/25 21:00 07/19/25 08:27 Meropenem 1 Gm Vial IVP 1 gm Q12H TOMY Administration Metoprolol Tartrate 2.5 mg 07/18/25 13:00 07/19/25 06:07 Metoprolol 5 Mg/5 Ml Vial IVP 2.5 mg Q6HR TOMY Administration Morphine Sulfate 2 mg 07/16/25 15:10 07/19/25 02:05 Morphine 2 Mg/Ml Carpuject IVP 2 mg Q2HR PRN Administration Severe Pain (Level 7-10) Morphine Sulfate 2 mg 07/17/25 18:18 Morphine 2 Mg/Ml Carpuject IVP Q2HR PRN Severe Pain (Level 7-10) Ondansetron HCl 4 mg 07/15/25 06:58 07/16/25 16:49 Ondansetron 4 Mg/2 Ml Vial IVP 4 mg Q6HR PRN Administration Nausea / Vomiting Pantoprazole Sodium 40 mg 07/15/25 14:27 07/19/25 06:07 Pantoprazole 40 Mg Vial IVP 40 mg QDAC TOMY Administration Prochlorperazine Edisylate 10 mg 07/15/25 14:27 07/18/25 22:57 Prochlorperazine 10 Mg/2 Ml Vial IVP 10 mg Q6HR PRN Administration Nausea / Vomiting Sodium Chloride 10 ml 07/15/25 17:00 07/19/25 08:28 Sodium Chloride Flush 0.9% 10 Ml Syringe IVP 10 ml 0100,0900,1700 TOMY Administration Sodium Chloride 10 ml 07/15/25 14:27 07/19/25 06:08 Sodium Chloride Flush 0.9% 10 Ml Syringe IVP 10 ml PRN PRN Administration NEEDED PER PROVIDER ORDERS Sterile Water 20 ml 07/15/25 21:00 07/19/25 08:28 Water For Injection,Sterile 10 Ml Vial MC 20 ml BID TOMY Administration Objective Vital Signs/Intake & Output Reviewed Vital Signs: Yes Vital Signs: Vital Signs x48h Temp Pulse Pulse Resp BP BP Pulse Ox 07/19/25 06:07 98 154/97 H 07/19/25 05:00 37.0 C 92 25 H 154/79 H 93 O2 Flow Rate 07/19/25 06:07 07/19/25 05:00 3 Intake & Output: Intake & Output 07/16/25 07/17/25 07/18/25 07/19/25 23:59 23:59 23:59 23:59 Intake Total 4229 / 4229 1370 / 1370 2925 / 2925 1350 / 1350 Output Total 2580 / 2580 2720 / 2720 [birth year] 1115 / 1115 Balance 1649 / 1649 -1350 / -1350 960 / 960 235 / 235 Weight (kg) 103 kg 106 kg 106.5 kg 107.5 kg Objective General Appearance: positive No acute distress and Alert Eyes Bilateral: positive Conjunctivae nml and No scleral icterus Respiratory: positive Chest non-tender, No respiratory distress, Wheezes and Rhonchi; negative Rales Cardiovascular: positive Regular rate & rhythm, No murmur and No gallop; negative Friction rub Peripheral Pulses: 2+: Radial (R), 2+: Radial (L), 2+: Dorsalis pedis (R) and 2+: Dorsalis pedis (L) Abdomen: positive Tenderness, Abnml bowel sounds (Bowel tones continue to improve: RUQ loud bowel sounds; LUQ bowel sounds increase with inspiration. LLQ and RLQ still have diminished bowel sounds.) and Other (Slight abdominal distension though less than before. Ostomy in right abdomen looks the same as the last couple days: Minimal liquidy output from ostomy. Stoma appears necrotic along the superior aspect. Some discoloration along inferior aspect of his midline dressing. NISREEN drain in left abdomen.); negative No distention (slight), Guarding or Rebound Back: positive Nml inspection Skin: positive Color nml Extremities: positive No pedal edema Neurologic/Psychiatric: positive Oriented x3 (Pt is aware he is in a medical setting, but is unsure why he is here. He is talking to people who aren't there.) and Mood/affect nml; negative Depressed mood/affect Lab Results 07/19/25 04:15 07/19/25 14:01 Other Labs: Lab Results x24hrs 07/19/25 Range/Units 04:15 WBC 13.9 H (4.8-10.8) x10^3/uL RBC 3.63 L (4.70-6.10) 10^6/uL Hgb 11.5 L (14.0-18.0) g/dL Hct 35.5 L (42.0-52.0) % MCV 97.8 H (80.0-94.0) fL MCH 31.7 H (27.0-31.0) pg MCHC 32.4 (32.0-36.0) g/dL RDW 13.3 (12.0-15.0) % Plt Count 242 (130-450) 10^3/uL MPV 9.6 (7.4-11.4) fL Neut # (Auto) 11.0 H (1.5-6.6) 10^3/uL Lymph # (Auto) 1.5 (1.5-3.5) 10^3/uL Coke # (Auto) 1.2 H (0.0-1.0) 10^3/uL Eos # (Auto) 0.1 (0.0-0.7) 10^3/uL Baso # (Auto) 0.0 (0.0-0.1) 10^3/uL Absolute Nucleated RBC 0.00 x10^3/uL Nucleated RBC % 0.0 /100WBC PT 12.8 H (9.9-12.6) secs INR 1.1 (0.8-1.2) VBG pH 7.492 H (7.31-7.41) Ionized Calcium 1.12 (1.09-1.30) mmol/L Sodium 139 (135-145) mmol/L Potassium 3.6 (3.5-4.5) mmol/L Chloride 104 (101-111) mmol/L Carbon Dioxide 32 (21-32) mmol/L Anion Gap 3.0 L (6-13) BUN 16 (6-20) mg/dL Creatinine 0.6 (0.6-1.3) mg/dL Estimated GFR (MDRD) 127 (>89) Glucose 157 H (74-104) mg/dL Calcium 7.7 L (8.5-10.3) mg/dL Phosphorus 1.8 L (2.5-5.0) mg/dL Magnesium 2.0 (1.7-2.3) mg/dL Total Bilirubin 0.4 (0.2-1.0) mg/dL AST 25 (10-42) IU/L ALT 23 (10-60) IU/L Alkaline Phosphatase 53 (42-121) IU/L Total Protein 4.8 L (6.4-8.9) g/dL Albumin 2.5 L (3.2-5.5) g/dL Globulin 2.3 (2.1-4.2) g/dL Albumin/Globulin Ratio 1.1 (1.0-2.2) Prealbumin 9 L (17-34) mg/dL Diagnostic Imaging Diagnostic Imaging Results: positive Final report reviewed Sepsis Event Note (H) Evaluation Current Stage of Sepsis: Septic shock Possible source of Sepsis: positive GI tract/intra-abdominal Sepsis Criteria Sepsis Criteria: WBC count greater than 10% bands, WBC count greater than 12,000 or less than 4000, SBP less than 90 mmHg and Renal: urine output less than 0.5ml/kg/hr for 2 hours or creatinine gr Assessment/Plan Problem List (1) Ischemia, bowel: Impression: Harvinder Wayne is a 89 year old male with a history of hypertension that presented to the ER with LLQ abdominal pain on 07/14 PM. He was admitted 07/15 AM for a bowel ischemia and obstruction accompanied by an incarcerated left inguinal hernia. On 07/15 extended left hemicolectomy with end colostomy completed without complications. Necrotized transverse and left colon visualized during operation. Ischemic bowel removed. Pt transferred in critical condition to ICU, intubated and on pressers. He was extubated 07/16. Discontinued Levophed and vasopressin 07/16. He has remained stable off of pressors. See shock and acute hypoxemic respiratory failure as below. Central line and NGT where electively removed by the patient 07/18 AM. NGT discontinued and bowel function trial started. PPN started evening of 07/18 Today is day 4 post-op. His vital signs remained stable. His previous tachycardia is well-managed with IV fluids and IV metoprolol every 6 hours. He continues to be satting well on 2L O2 via nasal cannula. His stoma appears about the same as the last couple days with some necrosis along the superior aspect. No gas passing from his stoma. Minimal liquidy output from ostomy. Bag was replaced last night after leaking. Surgery is following. No return of bowel function, but improving bowel tones are suggestive of returning function. His white count is down from yesterday 17.4 to 13.9. His neutrophil count is also down. He had difficulty sleeping last night d/t pain. Ultimately controlled after 2 doses of IV morphine 2 mg. No fevers overnight. Continuing to make urine. Alert and oriented. - Continue to monitor IOs, vitals, and labs (CBC and CMP) - Replenish electrolytes as needed, keep K, mag, Ca replete - Continue to monitor colostomy healing. Surgery following. - Started on PPN 07/18, continue until eating - Awaiting return of bowel function, consider trial of clears 07/20 as an attempt to stimulate - Diet: NPO until return of bowel function (2) Bowel obstruction: Impression: Resolved. See detailed notes above. Qualifiers: Intestinal obstruction extent: partial Intestinal obstruction type: u nspecified Qualified Code(s): K56.600 - Partial intestinal obstruction, unspecified as to cause (3) Left inguinal hernia: Impression: Initially reduced in ER on 07/15, but is persistent. 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 Persistent left inguinal hernia is at risk for incarceration. - monitor pt closely - followup OP for repair (4) Atrial fibrillation with RVR: Impression: Pt developed Afib with RVR 07/18 AM and given 1 L LR bolus. Started on scheduled lopressor 2.5mg qid. TTE completed, cardiology impression: LVEF 55-60%, global LV systolic function normal, diastolic pattern = restrictive filling w/ reduced LV compliance and elevated LV filling pressures, RV normal size and function, RVSP > 41 mmHg, PASP mildly increased. - Continue to monitor on tele - Continue metoprolol as scheduled - Continue fluids as above (5) Septic shock: Impression: Resolved. Suspect the etiology is septic shock likely from his intra-abdominal source. He has been treated with meropenem. Did have softening BP prior to going to the OR. He has received ample fluid. He is making urine. Patient was able to be weaned from Levophed and vasopressin on 07/16. MAP 89 mmHg. Extubated 07/16 and oxygenating well. Fever present 07/16. No fever present today (07/17). No growth in blood cultures. WBC elevated, but improved since admission. Neutrophil count unchanged. 07/16 XR impression: "Moderate vascular congestion and bilateral pleural effusions" Pt electively removed central line 07/18. - Continue to monitor O2 - Continue to monitor CBC, BMP every morning - Continue meropenem 1 gm IVP q12hrs til 07/22 o Discussed with pharmacy and dose changed 2 g every 12 hours given age and improvement in renal function - Continue following NISREEN output, appreciate general surgery (6) Metabolic acidosis: Impression: Resolved. Overall of unclear etiology. His lactate was only minimally elevated. He was largely hypochloremic. He received bicarb and ventilation, and subsequently became alkalotic. He has an arterial line in place that is not reading well regarding BP, but continues to draw arterial blood well. - Monitor metabolic panel as above - Treat problems as above and below (7) KSENIA (acute kidney injury): Impression: Resolved. Received ample fluids and his resuscitative efforts. Started on maintenance fluids with D5 1/2 NS His creatinine is now 0.8. - Continue daily BMP as above - Avoid nephrotoxins as able (8) Hypertension: Impression: Chronic problem. Home meds include amlodipine 5 mg, lisinopril 10 mg, doxazosin 8 mg twice daily - Holding home antihypertensives until bowel function returns. (9) Acute hypoxemic respiratory failure: Impression: Pt has developed acute hypoxemic respiratory failure that may be due to post- intubation delayed improvement secondary to asthma, aspiration pneumonia, fluid overload. His blood pressure is elevated and he has wheezes and rhonchi in all lung [place] likely d/t volume overload. Pt was given furosemide 40 mg this AM to diurese extra fluid. Previous O2 sat on RA 90%. Goal >92% on RA. Currently 97% on 3L O2 nasal cannula. - Continue to monitor O2 as above - Continue home inhalers and DuoNebs as below - Repeat chest XR today - Pulmonary toileting: incentive spirometry and chest physiotherapy - Wean O2 as tolerated, goal sat >92% - Abx as above (10) Asthma: Impression: Patient was able to extubate rather successfully. Continues to have some wheeze on his exam postextubation. Prior to this hospitalization, uses Wixela inhaler as needed. Resumed home inhalers 07/16 - Continue home inhalers - DuoNebs PRN - Will start expectorants as soon as he has returned of bowel function (11) Anxiety: Impression: Prior to his hospitalization patient was on 0.125 to 0.25 mg p.o. as needed alprazolam. 07/17 Pt anxious. He stated he "has met with his maker and is ready to ." At this time, patient is recovering well. MD counselled patient and family at bedside. Pt given Lorazepam IV 07/17 2244. RN reports that he has been delirious since receiving Lorazepam. He has been having visual and auditory hallucinations. He removed his O2, central line, and NGT. Lorazepam discontinued. - Continue monitoring (12) BPH (benign prostatic hyperplasia): Impression: Pruett placed postoperatively. Trial of void 07/19 - Currently NPO, will resume doxazosin once taking oral intake. - Remove pruett today I spent a total of 57 minutes in the care of this patient today. This time was spent reviewing labs, vital signs, imaging, interviewing and examining the patient, and discussing plan of care with them and their other care providers. Spent extensive time explaining his condition and updating his daughter who is just come to town and will be point of contact for the next several days.
[2025-07-19] MEDS: ACETAMINOPHEN 1,000 MG/100 ML 1,000 MG/100 ML BAG IV SCH (09:41)
--- NOTE | 2025-07-19 10:10 | PROVIDER PROGRESS NOTE ---
Subjective General Admit Date: 07/16/25 Procedure Date: 07/15/25 Post Op Days: 4 Procedure Performed: Exp lap with transverse & left colectomy, end colostomy, Hartmanns, drain, Other Other Information/Narrative: Doing well this morning, patient removed his own NGT and TLC yesterday. Currently feeling improved with good pain control, breathing is better and coughing to remove mucus, currently NPO and with no bowel function. Making adequate UOP. Wound Assessment Wound/Incisions: positive Healing well Drain Type: 19 Fr Ranulfo in the LEFT gutter Drain Output Description: Serous Approximate mls Output: 200 Review of Systems Status of ROS: 10 or more systems reviewed and unremarkable except as noted in history and below Exam Exam Vital Signs: Vital Signs x48h Temp Pulse Pulse Resp BP BP Pulse Ox 07/19/25 09:00 37.0 C 88 27 H 151/80 H 96 07/19/25 06:07 98 154/97 H 07/19/25 05:00 37.0 C 92 25 H 154/79 H 93 O2 Flow Rate 07/19/25 09:00 3 07/19/25 06:07 07/19/25 05:00 3 Constitutional normal general appearance and no apparent distress HENMT oropharynx normal moist mucous membranes Eyes conjunctivae normal and no scleral icterus Neck/C-Spine visual inspection normal Respiratory normal respiratory effort Coughing and bringing up mucus and then suctioning himself. Cardiovascular normal heart rate noted and regular rhythm noted Gastrointestinal Mildly distended abdomen, soft, appropriately TTP, midline dressing removed, jennifer in situ, healing appropriately, LLQ NISREEN with serous output, R sided colostomy with dusky appearing superior pole, serosanguineous in the bag. Neurology speech normal Psychiatry thought process normal and cooperative Skin skin color normal Impression/Plan Problem List (1) Ischemia, bowel: (2) Bowel obstruction: Qualifiers: Intestinal obstruction extent: partial Intestinal obstruction type: unspecified Qualified Code(s): K56.600 - Partial intestinal obstruction, unspecified as to cause (3) Left inguinal hernia: (4) Atrial fibrillation with RVR: (5) Septic shock: (6) Metabolic acidosis: (7) KSENIA (acute kidney injury): (8) Hypertension: (9) Acute hypoxemic respiratory failure: (10) Asthma: (11) Anxiety: (12) BPH (benign prostatic hyperplasia): Plan 89 yo M who presented to the ED on 07/14 with bowel obstruction due to inguinal hernia which was reduced by the ED. He was subsequently admitted for observation without resolution of his pain and continued bowel obstruction concerning for ongoing pathology so he was taken to the OR on 07/15. In the OR he was discovered to have a necrotic and distended left colon and transverse colon requiring colectomy with end colostomy. He was then admitted to the ICU intubated, sedated on pressors. He has since recovered and is off pressors and extubated in the ICU without bowel function, his NGT and TLC have been removed and he continues to improve. Neuro - Pain control as needed - Re-orientate frequently to prevent delirium CV - Off pressors, BP appropriate - HR NL, continue to monitor Resp: - Doing well on NC - Consider Chest PT - Wean O2 as tolerated - Pulmonary toilet - Agree with lasix for fluid overload GI - Await ROBF, will continue to monitor ostomy - Continue protonix for GI ppx - UOP adequate, Cr normal, continue to monitor - Agree with lasix, net positive 1L - Replete electrolytes to maintain K>4, P>3 and Mg>2 ID - WBC downtrending - Abx per primary Heme - Monitor Hgb, stabilized postoperative - Consider restart DVT ppx Lines/Drains - Maintain NISREEN - Maintain PIV access MSK - PT ordered Dispo - Consider CM for SNF coordination eventually, currently still requires hospitalization for his critical illness but may require SNF on d/c due to adv anced age and large surgery with new ostomy. Surgery will continue to follow closely and coordinate recommendations with primary team
[2025-07-19] MEDS: POTASSIUM PHOSPHATE 21 MMOL in SODIUM CHLORIDE 0.9% 250 ML IV ONE (10:57)
[2025-07-19 14:21] LABS: BUN - BLOOD UREA NITROGEN 17.0 mg/dL (6-20); CARBON DIOXIDE - CO2 34.0 mmol/L (21-32); CREATININE 0.6 mg/dL (0.6-1.3); GFR - MDRD 127.0 (>89)
--- NOTE | 2025-07-19 16:18 | XRAY Report ---
PROCEDURE: XR Chest 1V INDICATIONS: hypoxia, diffuse ronchi TECHNIQUE: Single frontal view of the chest was obtained COMPARISON: 07/16/2025 FINDINGS: Instrumentation: None Heart size, mediastinum and pulmonary vasculature: Unremarkable. Lungs and pleural spaces: Obscuration of the left hemidiaphragm. Heart size is enlarged. Mild vascular congestion. Osseous structures: Unremarkable IMPRESSION: Cardiomegaly and mild vascular congestion. Left pleural effusion Reviewed by: Cosme Santos MD on 07/19/2025 3:14 PM AKDT Approved by: Cosme Santos MD on 07/19/2025 3:14 PM AKDT Station ID: [id number]
--- NOTE | 2025-07-19 16:19 | XRAY Report ---
PROCEDURE: XR Abdomen 1 V INDICATIONS: Upright, abdominal pain, post-op TECHNIQUE: 1 view of the abdomen was acquired. COMPARISON: 07/15/2025 FINDINGS: Surgical changes and devices: Midline skin jennifer. Bowel: No pneumoperitoneum. The bowel gas pattern is normal. Stool load within normal limits. Soft tissues: No masses; visualized solid organ contours appear normal in size. No suspicious abdominal calcifications. Bones: No suspicious bony abnormalities. IMPRESSION: Midline skin jennifer. Nonobstructive bowel gas pattern Reviewed by: Cosme Santos MD on 07/19/2025 3:16 PM AKDT Approved by: Cosme Santos MD on 07/19/2025 3:16 PM AKDT Station ID: [id number]
--- NOTE | 2025-07-19 16:32 | XRAY Report ---
PROCEDURE: XR Chest 1V INDICATIONS: Upright, abdominal pain, postop TECHNIQUE: Single frontal view of the chest was obtained COMPARISON: None FINDINGS: Instrumentation: None Heart size, mediastinum and pulmonary vasculature: Heart size enlarged. Moderate vascular congestion. Lungs and pleural spaces: Obscuration of the hemidiaphragms Osseous structures: Unremarkable IMPRESSION: Bilateral pleural effusions with scattered atelectasis and or infiltrate Cardiomegaly and moderate vascular congestion Reviewed by: Cosme Santos MD on 07/19/2025 3:29 PM AKDT Approved by: Cosme Santos MD on 07/19/2025 3:29 PM AKDT Station ID: [id number]
[2025-07-19] MEDS ORDERED: SODIUM CHLORIDE 0.9% MINIBAG 100 ML IV ONE (17:05)
[2025-07-19] MEDS: MEROPENEM 2 GM in SODIUM CHLORIDE 0.9% MINIBAG 100 ML IV SCH (17:10)
[2025-07-19] MEDS: HYDROmorphone 0.5 MG/0.5 ML SYRINGE IVP PRN (21:23)
[2025-07-20 06:22] LABS: HCT - HEMATOCRIT 37.8 % (42.0-52.0); HGB - HEMOGLOBIN 12.4 g/dL (14.0-18.0); MEAN PLATELET VOLUME 9.9 fL (7.4-11.4); NRBC ABSOLUTE COUNT (AUTO) 0.00 x10^3/uL; NUCLEATED RED BLOOD CELLS AUTO 0.0 /100WBC; PLT - PLATELET COUNT 285 10^3/uL (130-450); RED CELL DISTRIBUTION WIDTH 13.0 % (12.0-15.0)
--- NOTE | 2025-07-20 08:11 | PROVIDER PROGRESS NOTE ---
Subjective General Admit Date: 07/16/25 Procedure Date: 07/15/25 Post Op Days: 5 Procedure Performed: Exp lap with transverse & left colectomy, end colostomy, Hartmanns, drain, Other Other Information/Narrative: Doing well this morning, pain is well controlled, alert and oriented, states he was OOB yesterday, making good urine, continues to be NPO, flatus in his ostomy bag today. Wound Assessment Wound/Incisions: positive Healing well Drain Type: 19 Fr Ranulfo in the LEFT gutter Drain Output Description: Serous Approximate mls Output: 205 Review of Systems Status of ROS: 10 or more systems reviewed and unremarkable except as noted in history and below Exam Exam Vital Signs: Vital Signs x48h Temp Pulse Pulse Resp BP BP Pulse Ox 07/20/25 05:50 85 158/82 H 07/20/25 04:03 37.2 C 91 22 158/82 H 94 O2 Flow Rate 07/20/25 05:50 07/20/25 04:03 3 Constitutional normal general appearance and no apparent distress HENMT normocephalic and head/scalp atraumatic Eyes conjunctivae normal and no scleral icterus Neck/C-Spine visual inspection normal Respiratory normal respiratory effort Cardiovascular normal heart rate noted and regular rhythm noted Gastrointestinal Mildly distended abdomen, soft, appropriately TTP, jennifer in situ, healing appropriately, LLQ NISREEN with serous output, R sided colostomy with dusky appearing superior pole, serosanguineous and flatus in the bag. Extremities normal to inspection Neurology GCS 15 Psychiatry thought process normal and cooperative Skin skin color normal Impression/Plan Problem List (1) Ischemia, bowel: (2) Bowel obstruction: Qualifiers: Intestinal obstruction extent: partial Intestinal obstruction type: unspecified Qualified Code(s): K56.600 - Partial intestinal obstruction, unspecified as to cause (3) Left inguinal hernia: (4) Atrial fibrillation with RVR: (5) Septic shock: (6) Metabolic acidosis: (7) KSENIA (acute kidney injury): (8) Hypertension: (9) Acute hypoxemic respiratory failure: (10) Asthma: (11) Anxiety: (12) BPH (benign prostatic hyperplasia): Plan 89 yo M who presented to the ED on 07/14 with bowel obstruction due to inguinal hernia which was reduced by the ED. He was subsequently admitted for observation without resolution of his pain and continued bowel obstruction concerning for ongoing pathology so he was taken to the OR on 07/15. In the OR he was discovered to have a necrotic and distended left colon and transverse colon requiring colectomy with end colostomy. He was then admitted to the ICU intubated, sedated on pressors. He has since recovered and is off pressors and extubated in the ICU, his NGT and TLC have been removed and he continues to improve. He has flatus in the colostomy bag this AM. Neuro - Pain control as needed - Re-orientate frequently to prevent delirium CV - Off pressors, BP appropriate - HR NL, continue to monitor Resp: - Doing well on NC - Consider Chest PT - Wean O2 as tolerated - Pulmonary toilet GI - Flatus in ostomy bag this AM - Start clear liquids - Continue protonix for GI ppx - UOP adequate, Cr normal, continue to monitor - Consider lasix, net positive 9L since admission - Replete electrolytes to maintain K>4, P>3 and Mg>2 ID - WBC downtrending - Abx per primary Heme - Monitor Hgb, stabilized postoperative - Continue DVT ppx Lines/Drains - Maintain NISREEN - Maintain PIV access MSK - PT ordered Dispo - Consider CM for SNF coordination eventually, currently still requires hospitalization for his critical illness but may require SNF on d/c due to advanced age and large surgery with new ostomy. Surgery will continue to follow closely and coordinate recommendations with primary team
[2025-07-20] MEDS: POTASSIUM CHLORIDE 20 MEQ/15 ML UDC PO ONE (08:53)
[2025-07-20] MEDS ORDERED: ACETAMINOPHEN 325 MG TABLET PO PRN (10:04)
[2025-07-20 10:44] LABS: ALT ALANINE AMINOTRANSFERASE 27.0 IU/L (10-60); AST ASPARTATE AMINOTRANSFERASE 27.0 IU/L (10-42); BUN - BLOOD UREA NITROGEN 15.0 mg/dL (6-20); CARBON DIOXIDE - CO2 34.0 mmol/L (21-32); CREATININE 0.5 mg/dL (0.6-1.3); GFR - MDRD 157.0 (>89)
[2025-07-20] MEDS: FUROSEMIDE 40 MG/4 ML VIAL IVP ONE (11:18)
[2025-07-20] MEDS: oxyCODONE 5 MG TABLET PO PRN ×2 (11:18→15:55)
--- NOTE | 2025-07-20 12:43 | PROVIDER PROGRESS NOTE ---
<Statement entered by Moshe Reyes, DO - 07/20/25 14:43> I was present with the [employer] student on the hospitalist service. I personally verified the history of present illness and performed the physical examination and medical decision making. I have verified the students documentation for this encounter and agree with the plan of care below. In addition 89-year-old gentleman who was admitted with abdominal pain found to have bowel ischemia on ex lap, likely secondary to incarcerated hernia. 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 He started passing gas, and his diet has been advanced today to clears. He is doing relatively well. He has been started on meropenem for septic shock following his procedure. His vital signs have since stabilized. He has been extubated for days now. He will complete 1 week course of empiric antibiotics on 07/22. He will likely need assisted at discharge, appreciate PT working with him. He began having worsened groin pain this afternoon, raising concern for recurrent herniation. He got a dose of IV Dilaudid, and that did help his pain. He was able to relax somewhat. I did not feel any particular hernia to reduce. I asked surgery to evaluate as well and they were not able to delineate his bowel within his scrotum, given significant edema. Received another dose of IV Lasix today. He is auto diuresing. He is weaning off of O2. - Will get scrotal ultrasound to rule out any further incarcerated hernia - Advancing diet to clears, patient tolerating reasonably well - Completes antibiotics 07/22 - PT to evaluate, suspect SNF - Ostomy consult placed today, appreciate ostomy nurse and early education - Continue to monitor CBC, CMP a.m. - Once he is eating more readily, can discontinue PPN. Subjective Prog Note Date Prog Note Date: 07/20/25 Prog Note Time: 09:35 Subjective Pt reports feeling: Improved Subjective: Harvinder Wayne is a 89 year old male with a history of hypertension that was admitted 07/15 for a bowel ischemia and obstruction accompanied by an incarcerated left inguinal hernia. Pt slept better last night. He feels like he is improving. He says he has no abdominal pain except when his abdomen is palpated. He has no longer been coughing, but is still a bit short of breath. Pt reports increased pain with urination since pruett removal. RN says that the patient has developed scrotal edema along with his urinary pain. ROS: Denies nausea, vomiting, fever, chills, night sweats Reports passing gas Denies abdominal tightness Reports abdomen tender to palpation Current Medications Current Medications Current Medications: Current Medications Generic Name Dose Route Start Last Admin Trade Name Freq PRN Reason Stop Dose Admin Acetaminophen 650 mg 07/20/25 10:04 Acetaminophen 325 Mg Tablet PO Q4HR PRN Pain or Fever > 38C (100.4F) Albuterol 2.5 mg 07/15/25 14:27 07/19/25 13:09 Albuterol Neb 2.5 Mg/3 Ml INH 2.5 mg Q4HR PRN Administration Wheezing Heparin Sodium (Porcine) 5,000 unit 07/18/25 09:00 07/20/25 08:12 Heparin 5,000 Unit/Ml Vial SUBQ 5,000 unit BID TOMY Administration Hydromorphone HCl 0.5 mg 07/19/25 21:13 07/20/25 12:05 Hydromorphone 0.5 Mg/0.5 Ml Syringe IVP 0.5 mg Q2H PRN Administration Severe Pain (Level 7-10) Multivitamins 10 ml/ Zinc/ 2,011 mls @ 83 mls/hr 07/18/25 19:00 07/19/25 18:28 Copper/Manganese/Selenium 1 ml IV 83 mls/hr / Amino Acids/Electrolytes/ 1900 TOMY Administration Dextrose Protocol Fat Emulsion Intravenous 250 mls @ 21 mls/hr 07/18/25 19:00 07/20/25 05:25 Intralipid 20% IV Infused 1900 TOMY Infusion Acetaminophen 1,000 mg in 100 mls @ 400 mls/hr 07/19/25 09:00 07/20/25 05:35 Acetaminophen IV Infused TID TOMY Infusion Meropenem 2 gm/ Sodium 100 mls @ 200 mls/hr 07/19/25 18:00 07/20/25 06:27 Chloride IV 07/22/25 17:59 Infused Q12H TOMY Infusion Ipratropium [place] 0.5 mg 07/15/25 14:27 07/19/25 13:10 Ipratropium 0.2 Mg/Ml Neb INH 0.5 mg Q6HR PRN Administration Wheezing Melatonin 3 mg 07/18/25 21:00 07/19/25 20:25 Melatonin 3 Mg Tablet PO 3 mg QPM TOMY Administration Metoprolol Tartrate 2.5 mg 07/18/25 13:00 07/20/25 11:18 Metoprolol 5 Mg/5 Ml Vial IVP 2.5 mg Q6HR TOMY Administration Ondansetron HCl 4 mg 07/15/25 06:58 07/16/25 16:49 Ondansetron 4 Mg/2 Ml Vial IVP 4 mg Q6HR PRN Administration Nausea / Vomiting Oxycodone HCl 10 mg 07/20/25 10:04 Oxycodone 5 Mg Tablet PO Q4HR PRN Severe Pain (Level 7-10) Oxycodone HCl 5 mg 07/20/25 10:19 07/20/25 11:18 Oxycodone 5 Mg Tablet PO 5 mg Q4HR PRN Administration Moderate Pain (Level 4-6) Pantoprazole Sodium 40 mg 07/15/25 14:27 07/20/25 06:03 Pantoprazole 40 Mg Vial IVP 40 mg QDAC TOMY Administration Prochlorperazine Edisylate 10 mg 07/15/25 14:27 07/18/25 22:57 Prochlorperazine 10 Mg/2 Ml Vial IVP 10 mg Q6HR PRN Administration Nausea / Vomiting Sodium Chloride 10 ml 07/15/25 17:00 07/20/25 08:15 Sodium Chloride Flush 0.9% 10 Ml Syringe IVP 10 ml 0100,0900,1700 TOMY Administration Sodium Chloride 10 ml 07/15/25 14:27 07/20/25 06:03 Sodium Chloride Flush 0.9% 10 Ml Syringe IVP 10 ml PRN PRN Administration NEEDED PER PROVIDER ORDERS Sterile Water 20 ml 07/15/25 21:00 07/20/25 08:17 Water For Injection,Sterile 10 Ml Vial MC Not Given BID TOMY Objective Vital Signs/Intake & Output Reviewed Vital Signs: Yes Vital Signs: Vital Signs x48h Temp Pulse Pulse Resp BP BP Pulse Ox 07/20/25 11:18 93 157/95 H 07/20/25 09:00 36.8 C 87 21 157/95 H 96 07/20/25 05:50 85 158/82 H O2 Flow Rate 07/20/25 11:18 07/20/25 09:00 3 07/20/25 05:50 Intake & Output: Intake & Output 10/30/25 10/31/25 11/01/25 11/02/25 23:59 23:59 23:59 22:59 Intake Total 1370 / 1370 2925 / 2925 3918 / 3918 450 / 450 Output Total 2720 / 2720 1963 / 1965 5920 / 5920 2300 / 2300 Balance -1350 / -1350 960 / 960 -2001 / -1849 / -185 Weight (kg) 106 kg 106.5 kg 107.5 kg 102.5 kg Objective General Appearance: positive No acute distress and Alert Eyes Bilateral: positive Conjunctivae nml and No scleral icterus Respiratory: positive Chest non-tender, No respiratory distress and Wheezes; negative Rales or Rhonchi Cardiovascular: positive Regular rate & rhythm, No murmur and No gallop; negative Friction rub Peripheral Pulses: 2+: Radial (R), 2+: Radial (L), 2+: Dorsalis pedis (R) and 2+: Dorsalis pedis (L) Abdomen: positive Tenderness, Abnml bowel sounds (Bowel tones continue to improve: LUQ loud bowel sounds; RUQ, LLQ and RLQ have diminished bowel sounds.) and Other (Slight abdominal distension though less than before. Ostomy in right abdomen: Minimal liquidy and some gas output from ostomy. Stoma appears necrotic along the superior aspect. Some discoloration along inferior aspect of his midline dressing. NISREEN drain in left abdomen. Midline incision intact and dry); negative No distention (slight), Guarding or Rebound Back: positive Nml inspection Skin: positive Color nml Extremities: positive No pedal edema Neurologic/Psychiatric: positive Oriented x3 and Mood/affect nml; negative Depressed mood/affect Lab Results 07/20/25 05:42 07/20/25 05:42 Other Labs: Lab Results x24hrs 07/20/25 07/19/25 Range/Units 05:42 14:01 WBC 13.4 H (4.8-10.8) x10^3/uL RBC 3.88 L (4.70-6.10) 10^6/uL Hgb 12.4 L (14.0-18.0) g/dL Hct 37.8 L (42.0-52.0) % MCV 97.4 H (80.0-94.0) fL MCH 32.0 H (27.0-31.0) pg MCHC 32.8 (32.0-36.0) g/dL RDW 13.0 (12.0-15.0) % Plt Count 285 (130-450) 10^3/uL MPV 9.9 (7.4-11.4) fL Neut # (Auto) 10.0 H (1.5-6.6) 10^3/uL Lymph # (Auto) 1.5 (1.5-3.5) 10^3/uL Cross # (Auto) 1.4 H (0.0-1.0) 10^3/uL Eos # (Auto) 0.3 (0.0-0.7) 10^3/uL Baso # (Auto) 0.1 (0.0-0.1) 10^3/uL Absolute Nucleated RBC 0.00 x10^3/uL Nucleated RBC % 0.0 /100WBC Sodium 137 138 (135-145) mmol/L Potassium 3.5 3.6 (3.5-4.5) mmol/L Chloride 98 L 100 L (101-111) mmol/L Carbon Dioxide 34 H 34 H (21-32) mmol/L Anion Gap 5.0 L 4.0 L (6-13) BUN 15 17 (6-20) mg/dL Creatinine 0.5 L 0.6 (0.6-1.3) mg/dL Estimated GFR (MDRD) 157 127 (>89) Glucose 132 H 133 H (74-104) mg/dL Calcium 7.8 L 7.8 L (8.5-10.3) mg/dL Total Bilirubin 0.5 (0.2-1.0) mg/dL AST 27 (10-42) IU/L ALT 27 (10-60) IU/L Alkaline Phosphatase 70 (42-121) IU/L Total Protein 5.1 L (6.4-8.9) g/dL Albumin 2.6 L (3.2-5.5) g/dL Globulin 2.5 (2.1-4.2) g/dL Albumin/Globulin Ratio 1.0 (1.0-2.2) Diagnostic Imaging Diagnostic Imaging Results: positive Final report reviewed Sepsis Event Note (H) Evaluation Current Stage of Sepsis: Septic shock Possible source of Sepsis: positive GI tract/intra-abdominal Sepsis Criteria Sepsis Criteria: WBC count greater than 10% bands, WBC count greater than 12,000 or less than 4000, SBP less than 90 mmHg and Renal: urine output less than 0.5ml/kg/hr for 2 hours or creatinine gr Assessment/Plan Problem List (1) Ischemia, bowel: Impression: Harvinder Wayne is a 89 year old male with a history of hypertension that presented to the ER with LLQ abdominal pain on 07/14 PM. He was admitted 07/15 AM for a bowel ischemia and obstruction accompanied by an incarcerated left inguinal hernia. On 07/15 extended left hemicolectomy with end colostomy completed without complications. Necrotized transverse and left colon visualized during operation. Ischemic bowel removed. Pt transferred in critical condition to ICU, intubated and on pressers. He was extubated 07/16. Discontinued Levophed and vasopressin 07/16. He has remained stable off of pressors. See shock and acute hypoxemic respiratory failure as below. Central line and NGT where electively removed by the patient 07/18 AM. NGT discontinued and bowel function trial started. PPN started evening of 07/18 Today is day 5 post-op. Pt continues to progress well. His vital signs remain stable. His stoma appears about the same as the last couple days with some necrosis along the superior aspect. Gas has started passing from his stoma. Minimal liquidy output from ostomy. Surgery is following. Bowel function returning. Improving bowel tones. 07/19 pt c/o abdominal tightness. Abdominal XR completed, impression: "Midline skin jennifer. Nonobstructive bowel gas pattern" Pt says that tightness has resolved since he has started passing gas suggesting that the bowel gas was likely the cause. Pt continues to recover well. Start dispo planning. Improve mobility and diet. PT evaluated patient 07/20 PM. Pt was able to ambulate well, but is still experiencing a lot of pain. PT recommends discharging to SNF. - Continue to monitor IOs, vitals, and labs (CBC and CMP) - Continue pain management with acetaminophen 650 mg PO q4hrs PRN, hydromorphone 0.5 mg IV q3hrs PRN, and oxycodone PO q4hrs PRN - Replenish electrolytes as needed, keep K, mag, Ca replete - Continue to monitor colostomy maturation. Surgery following. - Continue IV fluids - Discontinue PPN IV - Started on clear liquid diet, progress as tolerated - Consult ostomy nurse for OP ostomy care pt education - Diet: started on clears (2) Bowel obstruction: Impression: Resolved. As above Qualifiers: Intestinal obstruction extent: partial Intestinal obstruction type: u nspecified Qualified Code(s): K56.600 - Partial intestinal obstruction, unspecified as to cause (3) Left inguinal hernia: Impression: Initially reduced in ER on 07/15. Not surgically repaired yet. Suspect hernia incarceration may be the main screw driver operator of his bowel ischemia as above. Persistent left inguinal hernia is at risk for incarceration. - With pain as below 07/20 attempts to palpate for recurrence by both myself and surgery - Will get scrotal ultrasound to rule out any occult incarceration - Follow-up OP for repair (4) Pain passing urine: Impression: Since pruett catheter was removed pt has had pain with urination. Pt has developed scrotal swelling. Gen surg and MD assessed pt for inguinal hernia etiology to pain. Unable to confirm hernia reduction. Pain and swelling may be d/t hernia, scrotal edema, or dysuria (?infection post catheter). Already on abx w/r/t infection. - Pain managed as above - Started phenazopyridine 100 mg PO TID (5) Critical illness myopathy: Impression: PT evaluated pt today. 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 They recommend that the pt be discharged to a SNF until he returns to full strength. - Recommend SNF for dispo - Continue PPN until eating reliably - Nutrition following (6) Acute hypoxemic respiratory failure: Impression: Improving. Sats improved on 2-3 L NC. Weaning. Cough improved. Rales present on lung exam. Pt has developed acute hypoxemic respiratory failure that may be due to post- intubation delayed improvement secondary to asthma, aspiration pneumonia, fluid overload. His diffuse rhonchi have resolved. He still has expiratory wheezes in all lung [place] likely related to chronic asthma. Pt was given furosemide 40 mg this AM to continue to diurese extra fluid. Previous O2 sat on RA 90%. Goal >92% on RA. Currently 96% on 3L O2 nasal cannula. Chest XR completed on 07/19, radiologist impression: "Bilateral pleural effusions with scattered atelectasis and or infiltrate" - Repeat dose Furosemide 40mg IV x1, monitor BMP AM, strict IO - Continue to monitor O2 as above - Continue home inhalers and DuoNebs as below - Continue pulmonary toileting: incentive spirometry and chest physiotherapy - Wean O2 as tolerated, goal sat >92% - Abx as above (7) Atrial fibrillation with RVR: Impression: Pt developed Afib with RVR 07/18 AM and given 1 L LR bolus. Started on scheduled lopressor 2.5mg qid. Since has converted to sinus rhythm. TTE completed, cardiology impression: LVEF 55-60%, global LV systolic function normal, diastolic pattern = restrictive filling w/ reduced LV compliance and elevated LV filling pressures, RV normal size and function, RVSP > 41 mmHg, PASP mildly increased. - Continue to monitor on tele, can likely d/c tomorrow - Continue metoprolol scheduled, transition to oral - Continue fluids as above (8) Septic shock: Impression: Resolved. Suspect the etiology is septic shock likely from his intra-abdominal source. He has been treated with meropenem. Did have softening BP prior to going to the OR. He has received ample fluid. He is making urine. Patient was able to be weaned from Levophed and vasopressin on 07/16. MAP 89 mmHg. Extubated 07/16 and oxygenating well. Fever present 07/16. No fever present today (07/17). No growth in blood cultures. WBC elevated, but improved since admission. Neutrophil count unchanged. 07/16 XR impression: "Moderate vascular congestion and bilateral pleural effusions" Pt electively removed central line 07/18. His white count is down from yesterday 13.9 to 13.4. His neutrophil count is also down. - Continue to monitor O2 - Continue to monitor CBC, BMP every morning - Continue meropenem 2 gm IVP q12hrs til 07/22 - Continue following NISREEN output, appreciate general surgery (9) KSENIA (acute kidney injury): Impression: Resolved. Received ample fluids and his resuscitative efforts. Started on maintenance fluids with D5 1/2 NS His creatinine is now 0.8. - Continue daily BMP as above - Avoid nephrotoxins as able (10) Hypertension: Impression: Chronic problem. Home meds include amlodipine 5 mg, lisinopril 10 mg, doxazosin 8 mg twice daily - Restarted Doxazosin 8 mg BID - Hold other home antihypertensive (11) Asthma: Impression: Patient was able to extubate rather successfully. Continues to have some wheeze on his exam postextubation. Prior to this hospitalization, uses Wixela inhaler as needed. Resumed home inhalers 07/16 - Continue home inhalers - DuoNebs PRN - Start expectorants (12) Anxiety: Impression: 07/17 Pt anxious. He stated he "has met with his maker and is ready to ." At this time, patient is recovering well. MD counselled patient and family at bedside. Pt given Lorazepam IV 07/17 2244. RN reports that he has been delirious since receiving Lorazepam. He has been having visual and auditory hallucinations. He removed his O2, central line, and NGT. Lorazepam discontinued. Patient initial med rec suggest that he is on alprazolam. His is able to bring in more recent postvisit summary that this shows he is not currently taking benzos. - Continue monitoring - Patient mood actually much better. Could always consider starting SSRI in the future. (13) BPH (benign prostatic hyperplasia): Impression: Pruett placed postoperatively. Trial of void 07/19 - Doxazosin restarted as above I spent a total of 54 minutes in the care of this patient today. This time was spent reviewing labs, vital signs, imaging, interviewing and examining the patient, and discussing plan of care with them and their other care providers. Careful coordination of his care with surgery today. To help evaluate for recurrent hernia. He is at risk for further bowel loss and loss of bodily function as above. Needing parenteral narcotics.
[2025-07-20] MEDS: PHENAZOPYRIDINE 100 MG TABLET PO SCH (13:29)
--- NOTE | 2025-07-20 17:09 | PT Plan of Care ---
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 Postoperatively he required intubation due to septic shock and metabolic acidosis. Please see chart for complete medical hx. He was cleared by the hospitalist to participate in skilled PT eval as able. The pt was received resting comfortably supine in bed and presented today with decreased B UE and LE strength, decreased activity tolerance, abdominal pain, and impaired balance which limited his tolerance during functional mobility. His overall tolerance throughout this assessment was limited by weakness, fatigue, and pain. RN was present and assisting throughout due to the pt's functional limitations. At this time recommend continued skilled PT intervention while in the acute setting and DC to SNF for further rehab once pt medically stable as the pt is currently functioning below his baseline level of Ind. This plan was discussed with the pt and he was in agreement with this. At the end of the session the pt was sitting up in a chair with call light in reach, chair alarm in place and on, and all needs met. RN, OCEANOLOGY TEACHER, and MD all updated on pt's status and DC rec. PATIENT/FAMILY GOALS Patient/Family Goals: To get stronger and be able to return home GOALS Improve supine to sit to:: Minimal Assist Improve sit to stand to:: Contact Guard Improve pivot transfer ability to:: Contact Guard Improve sit to supine to:: Minimal Assist Improve gait ability to:: Min A Advance Assistive Device to:: Front Wheeled Walker Increase distance walked to (in feet):: 25 PLAN Frequency: 1-2x/day Duration: Until discharge DISCHARGE RECOMMENDATIONS Discharge Location: Nursing Home Facility Support/Services Needed: With assist Other Discharge Equipment: TBD pending pt progress Transport Needs at Discharge: [facility] van pending dist
[2025-07-20] MEDS ORDERED: MEROPENEM 1 GM VIAL ONE (18:09)
[2025-07-20] MEDS ORDERED: SODIUM CHLORIDE 0.9% MINIBAG 100 ML IV ONE (18:13)
[2025-07-20] MEDS: DOXAZOSIN 4 MG TABLET PO SCH (21:07)
[2025-07-20] MEDS: METOPROLOL TARTRATE 25 MG TABLET PO SCH (21:07)
[2025-07-21 05:32] LABS: HCT - HEMATOCRIT 37.9 % (42.0-52.0); HGB - HEMOGLOBIN 12.5 g/dL (14.0-18.0); MEAN PLATELET VOLUME 10.0 fL (7.4-11.4); NRBC ABSOLUTE COUNT (AUTO) 0.00 x10^3/uL; NUCLEATED RED BLOOD CELLS AUTO 0.0 /100WBC; PLT - PLATELET COUNT 333 10^3/uL (130-450); RED CELL DISTRIBUTION WIDTH 12.8 % (12.0-15.0)
[2025-07-21 05:46] LABS: ALT ALANINE AMINOTRANSFERASE 33.0 IU/L (10-60); AST ASPARTATE AMINOTRANSFERASE 31.0 IU/L (10-42); BUN - BLOOD UREA NITROGEN 17.0 mg/dL (6-20); CARBON DIOXIDE - CO2 37.0 mmol/L (21-32); CREATININE 0.5 mg/dL (0.6-1.3); GFR - MDRD 157.0 (>89); PHOSPHORUS 2.8 mg/dL (2.5-5.0)
--- NOTE | 2025-07-21 07:15 | PROVIDER PROGRESS NOTE ---
Subjective Prog Note Date Prog Note Date: 07/21/25 Prog Note Time: 07:10 Subjective Pt reports feeling: Improved Subjective: Continues to do well subjectively. His WBC is stable. Hgb Stable. His fluid balance is net negative 1L yesterday. Sats in the high 90s. Remains afebrile. Imaging yesterday without e/o herniated bowel into his scrotum. Mostly edema in his scrotum Hold off on further diuretics today. He's getting more alkalotic and Na low. Patient is feeling well overall today. His diet has been advanced to clears. He is tolerating this well. He remains on 3 L of oxygen. Wheezing on exam. No fevers or chills. Tolerating antibiotics well. No nausea or vomiting. He is in good spirits. He has been walking with the nurses. Current Medications Current Medications Current Medications: Current Medications Generic Name Dose Route Start Last Admin Trade Name Freq PRN Reason Stop Dose Admin Acetaminophen 650 mg 07/20/25 10:04 Acetaminophen 325 Mg Tablet PO Q4HR PRN Pain or Fever > 38C (100.4F) Albuterol 2.5 mg 07/15/25 14:27 07/19/25 13:09 Albuterol Neb 2.5 Mg/3 Ml INH 2.5 mg Q4HR PRN Administration Wheezing Doxazosin Mesylate 8 mg 07/20/25 21:00 07/20/25 21:07 Doxazosin 4 Mg Tablet PO 8 mg BID TOMY Administration Guaifenesin 600 mg 07/20/25 21:00 07/20/25 21:07 Guaifenesin 600 Mg Tablet PO 600 mg BID TOMY Administration Heparin Sodium (Porcine) 5,000 unit 07/18/25 09:00 07/20/25 21:10 Heparin 5,000 Unit/Ml Vial SUBQ 5,000 unit BID TOMY Administration Hydromorphone HCl 0.5 mg 07/19/25 21:13 07/20/25 12:05 Hydromorphone 0.5 Mg/0.5 Ml Syringe IVP 0.5 mg Q2H PRN Administration Severe Pain (Level 7-10) Multivitamins 10 ml/ Zinc/ 2,011 mls @ 83 mls/hr 07/18/25 19:00 07/20/25 18:17 Copper/Manganese/Selenium 1 ml IV 83 mls/hr / Amino Acids/Electrolytes/ 1900 TOMY Administration Dextrose Protocol Fat Emulsion Intravenous 250 mls @ 21 mls/hr 07/18/25 19:00 07/21/25 06:28 Intralipid 20% IV Infused 1900 TOMY Infusion Acetaminophen 1,000 mg in 100 mls @ 400 mls/hr 07/19/25 09:00 07/21/25 06:44 Acetaminophen IV Infused TID TOMY Infusion Meropenem 2 gm/ Sodium 100 mls @ 200 mls/hr 07/19/25 18:00 07/21/25 06:28 Chloride IV 07/22/25 17:59 Infused Q12H TOMY Infusion Ipratropium Onset 0.5 mg 07/15/25 14:27 07/19/25 13:10 Ipratropium 0.2 Mg/Ml Neb INH 0.5 mg Q6HR PRN Administration Wheezing Melatonin 3 mg 07/18/25 21:00 07/20/25 21:08 Melatonin 3 Mg Tablet PO 3 mg QPM TOMY Administration Metoprolol Tartrate 25 mg 07/20/25 21:00 07/20/25 21:07 Metoprolol Tartrate 25 Mg Tablet PO 25 mg BID TOMY Administration Ondansetron HCl 4 mg 07/15/25 06:58 07/16/25 16:49 Ondansetron 4 Mg/2 Ml Vial IVP 4 mg Q6HR PRN Administration Nausea / Vomiting Oxycodone HCl 10 mg 07/20/25 10:04 07/20/25 15:55 Oxycodone 5 Mg Tablet PO 10 mg Q4HR PRN Administration Severe Pain (Level 7-10) Oxycodone HCl 5 mg 07/20/25 10:19 07/20/25 20:24 Oxycodone 5 Mg Tablet PO 5 mg Q4HR PRN Administration Moderate Pain (Level 4-6) Pantoprazole Sodium 40 mg 07/15/25 14:27 07/21/25 06:22 Pantoprazole 40 Mg Vial IVP 40 mg QDAC TOMY Administration Phenazopyridine HCl 100 mg 07/20/25 14:00 07/21/25 06:11 Phenazopyridine 100 Mg Tablet PO 100 mg TID TOMY Administration Prochlorperazine Edisylate 10 mg 07/15/25 14:27 07/18/25 22:57 Prochlorperazine 10 Mg/2 Ml Vial IVP 10 mg Q6HR PRN Administration Nausea / Vomiting Sodium Chloride 10 ml 07/15/25 17:00 07/21/25 01:34 Sodium Chloride Flush 0.9% 10 Ml Syringe IVP 10 ml 0100,0900,1700 TOMY Administration Sodium Chloride 10 ml 07/15/25 14:27 07/20/25 06:03 Sodium Chloride Flush 0.9% 10 Ml Syringe IVP 10 ml PRN PRN Administration NEEDED PER PROVIDER ORDERS Sterile Water 20 ml 07/21/25 06:00 07/21/25 06:28 Water For Injection,Sterile 10 Ml Vial MC Not Given Q12H [facility] Objective Vital Signs/Intake & Output Reviewed Vital Signs: Yes Vital Signs: Vital Signs x48h Temp Pulse Resp BP Pulse Ox 07/21/25 04:57 37.0 C 85 24 134/69 H 96 07/21/25 00:02 37.8 C 75 18 130/66 97 Intake & Output: Intake & Output 07/18/25 07/19/25 07/20/25 07/21/25 23:59 23:59 22:59 23:59 Intake Total 2925 / 2925 3918 / 3918 3281 / 3181 450 / 450 Output Total 1965 / 1965 5920 / 5920 4260 / 4260 1740 / 1740 Balance 960 / 960 -2001 / -2001 -979 / -1079 -1290 / -1290 Weight (kg) 106.5 kg 107.5 kg 102.5 kg 100 kg Objective General Appearance: positive No acute distress and Alert Eyes Bilateral: positive Conjunctivae nml and No scleral icterus Respiratory: positive Chest non-tender, No respiratory distress and Wheezes; negative Rales or Rhonchi Cardiovascular: positive Regular rate & rhythm, No murmur and No gallop; negative Friction rub Peripheral Pulses: 2+: Radial (R), 2+: Radial (L), 2+: Dorsalis pedis (R) and 2+: Dorsalis pedis (L) Abdomen: positive Tenderness, Abnml bowel sounds (Bowel tones continue to improve: LUQ loud bowel sounds; RUQ, LLQ and RLQ have diminished bowel sounds.) and Other (Slight abdominal distension though less than before. Ostomy in right abdomen: Minimal liquidy and some gas output from ostomy. Stoma appears necrotic along the superior aspect. Some discoloration along inferior aspect of his midline dressing. NISREEN drain in left abdomen. Midline incision intact and dry); negative No distention (slight), Guarding or Rebound Back: positive Nml inspection Skin: positive Color nml Extremities: positive No pedal edema Neurologic/Psychiatric: positive Oriented x3 and Mood/affect nml; negative Depressed mood/affect Lab Results 07/21/25 04:35 07/21/25 04:35 Other Labs: Lab Results x24hrs 07/21/25 07/20/25 Range/Units 04:35 05:42 WBC 14.0 H (4.8-10.8) x10^3/uL RBC 4.00 L (4.70-6.10) 10^6/uL Hgb 12.5 L (14.0-18.0) g/dL Hct 37.9 L (42.0-52.0) % MCV 94.8 H (80.0-94.0) fL MCH 31.3 H (27.0-31.0) pg MCHC 33.0 (32.0-36.0) g/dL RDW 12.8 (12.0-15.0) % Plt Count 333 (130-450) 10^3/uL MPV 10.0 (7.4-11.4) fL Neut # (Auto) 10.3 H (1.5-6.6) 10^3/uL Lymph # (Auto) 1.7 (1.5-3.5) 10^3/uL [place] # (Auto) 1.3 H (0.0-1.0) 10^3/uL Eos # (Auto) 0.4 (0.0-0.7) 10^3/uL Baso # (Auto) 0.1 (0.0-0.1) 10^3/uL Absolute Nucleated RBC 0.00 x10^3/uL Nucleated RBC % 0.0 /100WBC Sodium 136 137 (135-145) mmol/L Potassium 3.5 3.5 (3.5-4.5) mmol/L Chloride 95 L 98 L (101-111) mmol/L Carbon Dioxide 37 H 34 H (21-32) mmol/L Anion Gap 4.0 L 5.0 L (6-13) BUN 17 15 (6-20) mg/dL Creatinine 0.5 L 0.5 L (0.6-1.3) mg/dL Estimated GFR (MDRD) 157 157 (>89) Glucose 118 H 132 H (74-104) mg/dL Calcium 8.1 L 7.8 L (8.5-10.3) mg/dL Phosphorus 2.8 (2.5-5.0) mg/dL Magnesium 1.9 (1.7-2.3) mg/dL Total Bilirubin 0.5 0.5 (0.2-1.0) mg/dL AST 31 27 (10-42) IU/L ALT 33 27 (10-60) IU/L Alkaline Phosphatase 79 70 (42-121) IU/L Total Protein 5.1 L 5.1 L (6.4-8.9) g/dL Albumin 2.6 L 2.6 L (3.2-5.5) g/dL Globulin 2.5 2.5 (2.1-4.2) g/dL Albumin/Globulin Ratio 1.0 1.0 (1.0-2.2) Prealbumin 14 L (17-34) mg/dL Triglycerides 173 mg/dL Diagnostic Imaging Diagnostic Imaging Results: positive Final report reviewed Sepsis Event Note (H) Evaluation Current Stage of Sepsis: Septic shock Possible source of Sepsis: positive GI tract/intra-abdominal Sepsis Criteria Sepsis Criteria: WBC count greater than 10% bands, WBC count greater than 12,000 or less than 4000, SBP less than 90 mmHg and Renal: urine output less than 0.5ml/kg/hr for 2 hours or creatinine gr Assessment/Plan Problem List (1) Bowel obstruction: Qualifiers: Intestinal obstruction extent: partial Intestinal obstruction type: u nspecified Qualified Code(s): K56.600 - Partial intestinal obstruction, unspecified as to cause (2) Ischemia, bowel: Impression: Patient is improving appropriately. He is having ostomy output. Advancing his diet today Recall the patient presented with acute onset abdominal pain on 07/14. Taken to the OR on 07/15 and found to have intestinal ischemia across his ascending and transverse colon, partial colectomy with resultant colostomy. He had acute hypoxemic respiratory failure and septic shock as below. Clinically out of the ICU as of 07/18. Remains geographically located there. Self removed his NGT and central line in 07/18. Has had an unremarkable postop course since then. Return of bowel function 07/20, his diet is being advanced. There was concern about stoma necrosis early along, but he has stable darkening along the superior aspect of his ostomy. Has not worsened. - Pain management with as needed APAP, oxycodone and Dilaudid - Continue to monitor electrolytes, replace K, mag, Ca as needed - Discussed with MAC, ostomy nurse not on staff this week, expected to return 07/28 - Will need outpatient follow-up with ostomy teaching as I expect he will be discharged prior to - Discontinue PPN and IV fluids - Encourage oral diet, nutrition following (3) Left inguinal hernia: Impression: Initially reduced in ER on 07/15. Not surgically repaired yet. Suspect hernia incarceration may be the main local flatbed driver of his bowel ischemia as above. On 07/20, the patient had recurrent inguinal pain that I suspect was related to volume overload, but could not rule out recurrent herniation. He was palpated by both myself and surgery without successful reduction. Follow-up ultrasound did not reveal any occult incarceration. - Follow-up OP for repair (4) Pain passing urine: Impression: Pain is improved. His urine does appear somewhat sanguinous. He is just on VTE prophylaxis. Since pruett catheter was removed pt has had pain with urination. Pt has developed scrotal swelling. Gen surg and MD assessed pt for inguinal hernia etiology to pain. Unable to confirm hernia reduction. Pain and swelling may be d/t hernia, scrotal edema, or dysuria (?infection post catheter). Already on abx w/r/t infection. - Pain managed as above - Started phenazopyridine 100 mg PO TID - Bladder protocol with bladder scans (5) Critical illness myopathy: Impression: PT recommended discharge to SNF, however the patient is quite strong. He continues to ambulate with nurses Patient with deconditioning due to his acute illness. He is likely to discharge to SNF following this hospitalization. - Case management working on dispo planning to SNF - Nutrition following As above (6) Asthma: (7) Acute hypoxemic respiratory failure: Impression: His lung exam is clearing dramatically. No longer with significant rales on exam. Still on 2-3 liters Pt has developed acute hypoxemic respiratory failure that may be due to post- intubation delayed improvement secondary to asthma, aspiration pneumonia, fluid overload. His diffuse rhonchi have resolved. He still has expiratory wheezes in all lung [place] likely related to chronic asthma. Pt was given furosemide 40 mg this AM to continue to diurese extra fluid. Previous O2 sat on RA 90%. Goal >92% on RA. Currently 96% on 3L O2 nasal cannula. He has a history of asthma, on Wixela prior to this hospitalization twice daily. - Continue as needed nebs. - Started on formulary equivalent of Wixela: budesonide and formoterol - Counseled patient 07/21 on increasing his pulmonary toileting. Incentive spirometer at bedside. He has a Acapella also at bedside. - Continue guaifenesin - Wean O2 as tolerated, goal sat >92% - Abx as below (8) Atrial fibrillation with RVR: Impression: Doing well. Continues in sinus rhythm. Rate 70s to 80s. TTE completed, cardiology impression: LVEF 55-60%, global LV systolic function normal, diastolic pattern = restrictive filling w/ reduced LV compliance and elevated LV filling pressures, RV normal size and function, RVSP > 41 mmHg, PASP mildly increased. New onset atrial fibrillation on 07/17 when the patient was acutely ill. He was started on Lopressor IV, every 6 hours, he then converted into sinus rhythm around 07/18. Suspect run of AF may have just been triggered by his critical illness. - D/C tele, not actively rate controlling - Continue lopressor PO 25 bid - Will need holter outpatient To determine A-fib burden (9) Septic shock: Impression: Resolved. Suspect the etiology is septic shock likely from his intra-abdominal source. He has been treated with meropenem. Did have softening BP prior to going to the OR. He has received ample fluid. He is making urine. Patient was able to be weaned from Levophed and vasopressin on 07/16. MAP 89 mmHg. Extubated 07/16 and oxygenating well. Fever present 07/16. No fever present today (07/17). No growth in blood cultures. WBC elevated, but improved since admission. Neutrophil count unchanged. 07/16 XR impression: "Moderate vascular congestion and bilateral pleural effusions" Pt electively removed central line 07/18. His white count is stabilized out around 14. Did not downtrend between yesterday and today. Discussed with general surgery, all are on board with trialing off of antibiotics after they complete 07/22 - Continue to monitor O2 - Continue to monitor CBC, BMP every morning - Continue meropenem 2 gm IVP q12hrs til 07/22, Empiric 7-day treatment - Continue following NISREEN output, appreciate general surgery (10) Hypertension: Impression: Chronic problem. Home meds include amlodipine 5 mg, lisinopril 10 mg, doxazosin 8 mg twice daily - Restarted Doxazosin 8 mg BID - Not yet restarted on lisinopril or amlodipine, remains normotensive. (11) Anxiety: Impression: 07/17 Pt anxious. He stated he "has met with his maker and is ready to ." At this time, patient is recovering well. MD counselled patient and family at bedside. Pt given Lorazepam IV 07/17 2244. RN reports that he has been delirious since receiving Lorazepam. He has been having visual and auditory hallucinations. He removed his O2, central line, and NGT. Lorazepam discontinued. Patient initial med rec suggest that he is on alprazolam. His is able to bring in more recent postvisit summary that this shows he is not currently taking benzos. - Continue monitoring - Resuming patient's home trazodone nightly (12) BPH (benign prostatic hyperplasia): Impression: Pruett placed postoperatively. Trial of void 07/19 Was successful. Patient is urinating freely. - Bladder protocol as above - Doxazosin restarted as above I spent a total of 42 minutes in the care of this patient today. This time was spent reviewing labs, vital signs, imaging, interviewing and examining the patient, and discussing plan of care with them and their other care providers.
--- NOTE | 2025-07-21 08:31 | Ultrasound Report ---
PROCEDURE: US Testicle INDICATIONS: inguinal hernia, scrotal swelling TECHNIQUE: Real-time scanning was performed of the scrotum and testicles, with image documentation. Color and pulse Doppler interrogation was performed of both testicles. COMPARISON: CT abdomen dated 07/14/2025 FINDINGS: Right: Testicle is normal in size at 3.5 x 3.0 x 2.6 cm, and homogenous in echotexture. Epididymis is normal in overall size and morphology. Moderate sized hydrocele. No varicoceles. Overlying scrotal skin is prominent in thickness. Left: Testicle is normal in size at 2.4 x 3.3 x 2.6 cm, and homogeneous in echotexture. Epididymis is normal in overall size and morphology. Moderate- sized hydrocele. No varicoceles. Overlying scrotal skin is prominent in thickness. Doppler: Color and pulse Doppler demonstrate normal and symmetric arterial flow in both testicles. No evidence for inguinal hernias. Previously described left inguinal hernia containing descending colon with upstream dilatation is not identified on ultrasound. IMPRESSION: No evidence of infection or torsion. Moderate-sized bilateral hydroceles. Prominent scrotal wall thickening bilaterally. Previously described bowel containing left inguinal hernia with upstream dilatation is not identified sonographically. Reviewed by: Camden Dow MD on 07/21/2025 8:28 AM PST Approved by: Camden Dwo MD on 07/21/2025 8:28 AM PST Station ID: [id number]
--- NOTE | 2025-07-21 08:57 | PROVIDER PROGRESS NOTE ---
Subjective General Admit Date: 07/16/25 Procedure Date: 07/15/25 Post Op Days: 6 Procedure Performed: Exp lap with transverse & left colectomy, end colostomy, Hartmanns, drain, Other Other Information/Narrative: Talkative, interactive - marked improvement from last week. Walking with assistance - understands that rehabilitation will be required. Wound Assessment Wound/Incisions: positive Healing well Drain Type: 19 Fr Ranulfo in the LEFT gutter Drain Output Description: Serous Approximate mls Output: 205 Review of Systems I did not complete a complete ROS but strength is improving and pain and discomfort is lessening. Exam Exam Vital Signs: Vital Signs x48h Temp Pulse Pulse Resp BP BP Pulse Ox 07/21/25 21:59 36.5 C 79 16 98/53 L 96 07/21/25 21:18 79 98/53 L 07/21/25 18:55 88 24 07/21/25 18:55 07/21/25 16:40 84 120/58 L 07/21/25 16:23 37 C 82 22 95/47 L 95 O2 Flow Rate 07/21/25 21:59 2 07/21/25 21:18 07/21/25 18:55 2 07/21/25 18:55 2 07/21/25 16:40 07/21/25 16:23 2 General: 89-year old male, appears younger than stated age, responding appropriately, coughing upon command HEENT: Normocephalic, atraumatic, extraocular movement intact, mucous membranes pink and moist, sclera anicteric and not injected Neck: Trachea midline Cardiac: Regular rate and rhythm without rub, gallop, or murmur Chest: Clear to auscultation bilaterally anterolaterally Abdomen: Soft, positive bowel sounds, stool and flatus in colostomy bag Genitourinary: Deferred Rectal: Deferred Extremities: No gross neurovascular problem, no clubbing, cyanosis or edema Gait: Not evaluated personally - but walking with assist Psychiatric: Alert and oriented x3, mood and affect appropriate, participating in and understanding future plans ABX Reporting Has patient been on IV antibiotics over the past 48 hours?: Yes Impression/Plan Problem List (1) Ischemia, bowel: (2) Bowel obstruction: Qualifiers: Intestinal obstruction extent: partial Intestinal obstruction type: unspecified Qualified Code(s): K56.600 - Partial intestinal obstruction, unspecified as to cause (3) Left inguinal hernia: (4) Pain passing urine: (5) Critical illness myopathy: (6) Acute hypoxemic respiratory failure: (7) Atrial fibrillation with RVR: (8) Septic shock: (9) KSENIA (acute kidney injury): (10) Hypertension: (11) Asthma: (12) Anxiety: (13) BPH (benign prostatic hyperplasia): Plan D2 status post extended colectomy to include transverse colon and LEFT colon, with end ascending colon colostomy, Hartmanns, drain in LEFT gutter, umbilical herniorrhaphy 1) FEN Would advance to general diet. 2) ID D6/7 Meripenem. Agree with discontinuing antibiotics after 7 days and following for signs of infection. If no spike in WBC then remove drain 24-48 hours after antibiotics stopped. 3) Cardiac Defer to my medicine colleagues but no emerging concern is evident to me. 4) Pulmonary Stronger with every day - no signs of infection. 5) DVT Prophylaxis physical and chemical. With ambulation this concern is decreasing. 6) Wound Well approximated with jennifer. Remove every other on Monday. Teach ostomy care. 7) Bowel Functioning - advance diet. 8) Pain Controlled on orals. 9) Placement This has now come to forefront. In summary patient improving. Will continue to follow and care for patient in concert with our internal medicine colleagues.
[2025-07-21] MEDS: POTASSIUM CHLORIDE 20 MEQ TABLET PO ONE (12:16)
[2025-07-21] MEDS: ACETAMINOPHEN 500 MG TABLET PO SCH (14:42)
[2025-07-21] MEDS: FORMOTEROL FUMARATE NEB 20 MCG/2 ML INH SCH (18:55)
[2025-07-21] MEDS: BUDESONIDE 0.5 MG/2 ML NEB INH SCH (18:55)
[2025-07-22 05:04] LABS: HCT - HEMATOCRIT 36.6 % (42.0-52.0); HGB - HEMOGLOBIN 11.8 g/dL (14.0-18.0); MEAN PLATELET VOLUME 10.0 fL (7.4-11.4); NRBC ABSOLUTE COUNT (AUTO) 0.00 x10^3/uL; NUCLEATED RED BLOOD CELLS AUTO 0.0 /100WBC; PLT - PLATELET COUNT 335 10^3/uL (130-450); RED CELL DISTRIBUTION WIDTH 13.0 % (12.0-15.0)
[2025-07-22 05:33] LABS: ALT ALANINE AMINOTRANSFERASE 43.0 IU/L (10-60); AST ASPARTATE AMINOTRANSFERASE 36.0 IU/L (10-42); BUN - BLOOD UREA NITROGEN 18.0 mg/dL (6-20); CARBON DIOXIDE - CO2 38.0 mmol/L (21-32); CREATININE 0.7 mg/dL (0.6-1.3); GFR - MDRD 106.0 (>89); PHOSPHORUS 3.0 mg/dL (2.5-5.0)
--- NOTE | 2025-07-22 08:43 | PROVIDER PROGRESS NOTE ---
Subjective Subjective Subjective: Today, patient continues to do well. He states that he has mild abdominal pain, which he rates as a 1 out of 10, with movement of his core muscles. He endorses some mild shortness of breath, with wheezing. He states he has been an asthmatic his whole life, and uses inhalers daily. He has never been intubated before. He has been tolerating his diet well. He is agreeable to SNF placement. Current Medications Current Medications Current Medications: Current Medications Generic Name Dose Route Start Last Admin Trade Name Freq PRN Reason Stop Dose Admin Acetaminophen 1,000 mg 07/21/25 14:00 07/22/25 06:10 Acetaminophen 500 Mg Tablet PO 1,000 mg TID TOMY Administration Albuterol 2.5 mg 07/15/25 14:27 07/21/25 18:55 Albuterol Neb 2.5 Mg/3 Ml INH 2.5 mg Q4HR PRN Administration Wheezing Budesonide 0.5 mg 07/21/25 19:00 07/21/25 18:55 Budesonide 0.5 Mg/2 Ml Neb INH 0.5 mg RTBID TOMY Administration Doxazosin Mesylate 8 mg 07/20/25 21:00 07/21/25 21:14 Doxazosin 4 Mg Tablet PO 8 mg BID TOMY Administration Formoterol Fumarate 20 mcg 07/21/25 19:00 07/21/25 18:55 Formoterol Fumarate Neb 20 Mcg/2 Ml INH 20 mcg RTBID TOMY Administration Guaifenesin 600 mg 07/20/25 21:00 07/21/25 21:25 Guaifenesin 600 Mg Tablet PO 600 mg BID TOMY Administration Heparin Sodium (Porcine) 5,000 unit 07/18/25 09:00 07/21/25 21:13 Heparin 5,000 Unit/Ml Vial SUBQ 5,000 unit BID TOMY Administration Hydromorphone HCl 0.5 mg 07/19/25 21:13 07/20/25 12:05 Hydromorphone 0.5 Mg/0.5 Ml Syringe IVP 0.5 mg Q2H PRN Administration Severe Pain (Level 7-10) Meropenem 2 gm/ Sodium 100 mls @ 200 mls/hr 07/19/25 18:00 07/22/25 06:41 Chloride IV 07/22/25 17:59 Infused Q12H TOMY Infusion Ipratropium [place] 0.5 mg 07/15/25 14:27 07/19/25 13:10 Ipratropium 0.2 Mg/Ml Neb INH 0.5 mg Q6HR PRN Administration Wheezing Melatonin 3 mg 07/18/25 21:00 07/21/25 21:19 Melatonin 3 Mg Tablet PO 3 mg QPM TOMY Administration Metoprolol Tartrate 25 mg 07/20/25 21:00 07/21/25 21:18 Metoprolol Tartrate 25 Mg Tablet PO Not Given BID TOMY Ondansetron HCl 4 mg 07/15/25 06:58 07/16/25 16:49 Ondansetron 4 Mg/2 Ml Vial IVP 4 mg Q6HR PRN Administration Nausea / Vomiting Oxycodone HCl 10 mg 07/20/25 10:04 07/20/25 15:55 Oxycodone 5 Mg Tablet PO 10 mg Q4HR PRN Administration Severe Pain (Level 7-10) Oxycodone HCl 5 mg 07/20/25 10:19 07/20/25 20:24 Oxycodone 5 Mg Tablet PO 5 mg Q4HR PRN Administration Moderate Pain (Level 4-6) Pantoprazole Sodium 40 mg 07/15/25 14:27 07/22/25 06:21 Pantoprazole 40 Mg Vial IVP 40 mg QDAC TOMY Administration Phenazopyridine HCl 100 mg 07/20/25 14:00 07/22/25 06:13 Phenazopyridine 100 Mg Tablet PO 100 mg TID TOMY Administration Prochlorperazine Edisylate 10 mg 07/15/25 14:27 07/18/25 22:57 Prochlorperazine 10 Mg/2 Ml Vial IVP 10 mg Q6HR PRN Administration Nausea / Vomiting Sodium Chloride 10 ml 07/15/25 17:00 07/21/25 21:19 Sodium Chloride Flush 0.9% 10 Ml Syringe IVP 10 ml 0100,0900,1700 TOMY Administration Sodium Chloride 10 ml 07/15/25 14:27 07/22/25 06:21 Sodium Chloride Flush 0.9% 10 Ml Syringe IVP 10 ml PRN PRN Administration NEEDED PER PROVIDER ORDERS Sterile Water 20 ml 07/21/25 06:00 07/22/25 06:11 Water For Injection,Sterile 10 Ml Vial MC 20 ml Q12H TOMY Administration Trazodone HCl 50 mg 07/21/25 21:00 07/21/25 21:19 Trazodone 50 Mg Tablet PO 50 mg QPM TOMY Administration Objective Vital Signs/Intake & Output Reviewed Vital Signs: Yes Vital Signs: Vital Signs x48h Temp Pulse Resp BP Pulse Ox O2 Flow Rate 07/22/25 06:00 98.6 F 70 16 116/59 L 96 2 Intake & Output: Intake & Output 07/19/25 07/20/25 07/21/25 07/22/25 23:59 22:59 23:59 23:59 Intake Total 3918 / 3918 3281 / 3181 3180 / 3180 200 / 200 Output Total 5920 / 5920 4260 / 4260 3715 / 3715 162 / 162 Balance -2001 / -2001 -979 / -1079 -535 / -535 38 / 38 Weight (kg) 107.5 kg 102.5 kg 100 kg 98.5 kg Objective General Appearance: positive No acute distress and Alert Eyes Bilateral: positive Conjunctivae nml and No scleral icterus Respiratory: positive Chest non-tender, No respiratory distress and Wheezes; negative Rales or Rhonchi Cardiovascular: positive Regular rate & rhythm, No murmur and No gallop; negative Friction rub Peripheral Pulses: 2+: Radial (R), 2+: Radial (L), 2+: Dorsalis pedis (R) and 2+: Dorsalis pedis (L) Abdomen: positive Tenderness and Other (Slight abdominal distension though less than before. Ostomy in right abdomen: Minimal liquidy and some gas output from ostomy. Stoma appears necrotic along the superior aspect. Some discoloration along inferior aspect of his midline dressing. NISREEN drain in left abdomen. Midline incision intact and dry); negative No distention (slight), Guarding or Rebound Back: positive Nml inspection Skin: positive Color nml Extremities: positive No pedal edema Neurologic/Psychiatric: positive Oriented x3 and Mood/affect nml Lab Results 07/22/25 04:12 07/22/25 04:12 Other Labs: Lab Results x24hrs 07/22/25 Range/Units 04:12 WBC 14.1 H (4.8-10.8) x10^3/uL RBC 3.79 L (4.70-6.10) 10^6/uL Hgb 11.8 L (14.0-18.0) g/dL Hct 36.6 L (42.0-52.0) % MCV 96.6 H (80.0-94.0) fL MCH 31.1 H (27.0-31.0) pg MCHC 32.2 (32.0-36.0) g/dL RDW 13.0 (12.0-15.0) % Plt Count 335 (130-450) 10^3/uL MPV 10.0 (7.4-11.4) fL Neut # (Auto) 10.7 H (1.5-6.6) 10^3/uL Lymph # (Auto) 1.8 (1.5-3.5) 10^3/uL [place] # (Auto) 1.0 (0.0-1.0) 10^3/uL Eos # (Auto) 0.4 (0.0-0.7) 10^3/uL Baso # (Auto) 0.0 (0.0-0.1) 10^3/uL Absolute Nucleated RBC 0.00 x10^3/uL Nucleated RBC % 0.0 /100WBC Sodium 139 (135-145) mmol/L Potassium 3.4 L (3.5-4.5) mmol/L Chloride 97 L (101-111) mmol/L Carbon Dioxide 38 H (21-32) mmol/L Anion Gap 4.0 L (6-13) BUN 18 (6-20) mg/dL Creatinine 0.7 (0.6-1.3) mg/dL Estimated GFR (MDRD) 106 (>89) Glucose 106 H (74-104) mg/dL Calcium 7.9 L (8.5-10.3) mg/dL Phosphorus 3.0 (2.5-5.0) mg/dL Magnesium 1.9 (1.7-2.3) mg/dL Total Bilirubin 0.6 (0.2-1.0) mg/dL AST 36 (10-42) IU/L ALT 43 (10-60) IU/L Alkaline Phosphatase 106 (42-121) IU/L Total Protein 4.8 L (6.4-8.9) g/dL Albumin 2.5 L (3.2-5.5) g/dL Globulin 2.3 (2.1-4.2) g/dL Albumin/Globulin Ratio 1.1 (1.0-2.2) Diagnostic Imaging Diagnostic Imaging Results: positive Final report reviewed Sepsis Event Note (H) Evaluation Current Stage of Sepsis: Septic shock Possible source of Sepsis: positive GI tract/intra-abdominal Sepsis Criteria Sepsis Criteria: WBC count greater than 10% bands, WBC count greater than 12,000 or less than 4000, SBP less than 90 mmHg and Renal: urine output less than 0.5ml/kg/hr for 2 hours or creatinine gr Assessment/Plan Problem List (1) Ischemia, bowel: (2) Bowel obstruction: Impression: Patient presented with abdominal pain on 07/14. Taken to the OR on 07/15 with partial colectomy and resultant colostomy. Course complicated with septic shock, hypoxemic respiratory failure postoperatively. Now resolved, doing well. Completed 5-day course of IV antibiotics, meropenem for septic shock. Last day 07/22. Return of bowel function 07/20. Currently on a full liquid diet. Advanced to regular diet today. Qualifiers: Intestinal obstruction extent: partial Intestinal obstruction type: u nspecified Qualified Code(s): K56.600 - Partial intestinal obstruction, unspecified as to cause (3) Left inguinal hernia: Impression: Initially reduced in ER on 07/15. Not surgically repaired yet. Suspect hernia incarceration may be the main city bus driver of his bowel ischemia as above. On 07/20, the patient had recurrent inguinal pain that was palpated by surgery without successful reduction. Follow-up ultrasound did not reveal any occult incarceration. Follow-up outpatient for repair. (4) Pain passing urine: Impression: Started phenazopyridine 100 mg PO TID. Bladder protocol with bladder scans. Condom catheter in place. (5) Critical illness myopathy: Impression: PT recommended discharge to SNF, patient with deconditioning due to his acute illness. He is likely to discharge to SNF following this hospitalization. Case management working on dispo planning to SNF. Nutrition following as above. (6) Acute hypoxemic respiratory failure: Impression: Resolved. On room air this morning. Seamus developed acute hypoxemic respiratory failure that may be due to delayed improvement secondary to asthma, aspiration pneumonia, fluid overload. Continue as needed Duonebs. Started on formulary equivalent of [place]ix[place]: budesonide and formoterol. Counseled patient on increasing incentive spirometer use. He has a Acapella also at bedside. Continue guaifenesin. (7) Atrial fibrillation with RVR: Impression: Doing well. Continues in sinus rhythm. Rate 70s to 80s. TTE completed: LVEF 55-60%, global LV systolic function normal, diastolic pattern = restrictive filling w/ reduced LV compliance and elevated LV filling pressures, RV normal size and function, RVSP > 41 mmHg, PASP mildly increased. New onset atrial fibrillation on 07/17 when the patient was acutely ill. He was started on Lopressor IV, every 6 hours, he then converted into sinus rhythm around 07/18. Suspect run of AF may have just been triggered by his critical illness. Continue lopressor PO 25 mg twice a day. Will need Holter monitor outpatient to determine A-fib burden, and need for anticoagulation. (8) Septic shock: Impression: Resolved. Suspect the etiology is septic shock likely from his intra-abdominal source. He has been treated with meropenem. (9) KSENIA (acute kidney injury): Impression: Resolved, suspect hemodynamic ATN from septic shock. (10) Hypertension: Impression: Chronic problem. Home meds include amlodipine 5 mg, lisinopril 10 mg. Metoprolol continued. Qualifiers: Hypertension type: unspecified Qualified Code(s): I10 - Essential (primary) hypertension (11) Asthma: Impression: Treatment as above with Duonebs, inhalers. Qualifiers: Asthma complication type: unspecified Asthma persistence: unspecified Asthma severity: mild Qualified Code(s): J45.909 - Unspecified asthma, uncomplicated (12) Anxiety: Impression: Stable. Resuming patient's home trazodone nightly (13) BPH (benign prostatic hyperplasia): Impression: Continue doxazosin. Qualifiers: Lower urinary tract symptom presence: unspecified whether lower urinary tract symptoms present Qualified Code(s): N40.0 - Benign prostatic hyperplasia without lower urinary tract symptoms
[2025-07-22] MEDS: MEROPENEM 2 GM in SODIUM CHLORIDE 0.9% 100ML 100 ML IV SCH (10:46)
[2025-07-22 14:23] LABS: BUN - BLOOD UREA NITROGEN 20.0 mg/dL (6-20); CARBON DIOXIDE - CO2 38.0 mmol/L (21-32); CREATININE 0.8 mg/dL (0.6-1.3); GFR - MDRD 91.0 (>89)
[2025-07-22] MEDS: POTASSIUM CHLORIDE 20 MEQ TABLET PO ONE (17:44)
[2025-07-22] MEDS ORDERED: MEROPENEM 2 GM in SODIUM CHLORIDE 0.9% 100ML 100 ML IV SCH (19:00)
--- NOTE | 2025-07-22 22:21 | PROVIDER PROGRESS NOTE ---
Subjective General Admit Date: 07/16/25 Procedure Date: 07/15/25 Post Op Days: 7 Procedure Performed: Exp lap with transverse & left colectomy, end colostomy, Hartmanns, drain, Other Other Information/Narrative: Patient was seen and evaluated by me approximately 815 this morning and again send after 3:00 in the afternoon. Patient states that he is feeling much better and is very happy with the improvement that he has had. He is looking forward to rehabilitation and to be able to go home. Wound Assessment Wound/Incisions: positive Healing well Drain Type: 19 Fr Ranulfo in the LEFT gutter Drain Output Description: Serous Approximate mls Output: Minimal Review of Systems I did not complete a complete ROS but strength is returning, bowel function has returned and patient is improving daily. Exam Exam Vital Signs: Vital Signs x48h Pulse Resp BP 07/22/25 21:15 82 115/57 L 07/22/25 20:01 82 18 General: 89-year old male, appears younger than stated age, responding appropriately, feeling markedly better HEENT: Normocephalic, atraumatic, extraocular movement intact, mucous membranes pink and moist, sclera anicteric and not injected Neck: Trachea midline Cardiac: Regular rate and rhythm without rub, gallop, or murmur Chest: Clear to auscultation bilaterally anterolaterally Abdomen: Soft, positive bowel sounds, stool and flatus in colostomy bag, midline wound well-approximated with jennifer of which I will remove every other tomorrow morning, drain in right lower quadrant draining scant amount of serous fluid Genitourinary: Deferred Rectal: Deferred Extremities: No gross neurovascular problem, no clubbing, cyanosis or edema Gait: Not evaluated personally - but walking with assist Psychiatric: Alert and oriented x3, mood and affect appropriate, participating in and understanding future plans ABX Reporting Has patient been on IV antibiotics over the past 48 hours?: Yes Impression/Plan Problem List (1) Ischemia, bowel: (2) Bowel obstruction: Qualifiers: Intestinal obstruction extent: partial Intestinal obstruction type: unspecified Qualified Code(s): K56.600 - Partial intestinal obstruction, unspecified as to cause (3) Left inguinal hernia: (4) Pain passing urine: (5) Critical illness myopathy: (6) Acute hypoxemic respiratory failure: (7) Atrial fibrillation with RVR: (8) Septic shock: (9) KSENIA (acute kidney injury): (10) Hypertension: Qualifiers: Hypertension type: unspecified Qualified Code(s): I10 - Essential (primary) hypertension (11) Asthma: Qualifiers: Asthma severity: mild Asthma persistence: unspecified Asthma complication type: unspecified Qualified Code(s): J45.909 - Unspecified asthma, uncomplicated (12) Anxiety: (13) BPH (benign prostatic hyperplasia): Qualifiers: Lower urinary tract symptom presence: unspecified whether lower urinary tract symptoms present Qualified Code(s): N40.0 - Benign prostatic hyperplasia without lower urinary tract symptoms Plan D7 status post extended colectomy to include transverse colon and LEFT colon, with end ascending colon colostomy, Hartmanns, drain in LEFT gutter, umbilical herniorrhaphy 1) FEN Tolerating general diet. Supplement potassium orally. 2) ID D7/7 Meripenem. Agree with my medical colleagues on stopping these today. Will continue to follow for signs of infection. 3) DVT Prophylaxis physical and chemical. With ambulation this concern is decreasing. 4) Wound Well approximated with jennifer. Remove every other on Monday. Teach ostomy care. 5) Pain Well controlled on orals. 6) Placement Awaiting placement. Patient appears very happy with choices that are being made as previous family members have stayed there. In summary patient improving. Will continue to follow and care for patient in concert with our internal medicine colleagues. Upon discharge I will follow-up with him in my office 1 to 2 weeks after discharge.
[2025-07-23 05:56] LABS: HCT - HEMATOCRIT 35.5 % (42.0-52.0); HGB - HEMOGLOBIN 11.5 g/dL (14.0-18.0); MEAN PLATELET VOLUME 9.5 fL (7.4-11.4); NRBC ABSOLUTE COUNT (AUTO) 0.00 x10^3/uL; NUCLEATED RED BLOOD CELLS AUTO 0.0 /100WBC; PLT - PLATELET COUNT 362 10^3/uL (130-450); RED CELL DISTRIBUTION WIDTH 13.4 % (12.0-15.0)
[2025-07-23] MEDS: PANTOPRAZOLE 40 MG TABLET PO SCH (06:10)
[2025-07-23] MEDS ORDERED: PHENAZOPYRIDINE 100 MG TABLET PO PRN (07:31)
[2025-07-23 08:20] LABS: BUN - BLOOD UREA NITROGEN 16.0 mg/dL (6-20); CARBON DIOXIDE - CO2 34.0 mmol/L (21-32); CREATININE 0.7 mg/dL (0.6-1.3); GFR - MDRD 106.0 (>89)
[2025-07-23] MEDS: MULTIVITAMIN W/MINERALS TABLET PO SCH (08:31)
--- NOTE | 2025-07-23 12:02 | PROVIDER PROGRESS NOTE ---
Subjective Subjective Subjective: Today, patient continues to do well. He states that he has mild abdominal pain, which he rates as a 1 out of 10, with movement of his core muscles. He endorses some mild shortness of breath, but that's also improved. He states he has been an asthmatic his whole life, and uses inhalers daily. He has never been intubated before. He has been tolerating his diet well. He enjoyed the soft foods. He is having appropriate ostomy output and minimal NISREEN drain output. He is agreeable to SNF placement. Current Medications Current Medications Current Medications: Current Medications Generic Name Dose Route Start Last Admin Trade Name Freq PRN Reason Stop Dose Admin Acetaminophen 1,000 mg 07/21/25 14:00 07/23/25 06:09 Acetaminophen 500 Mg Tablet PO 1,000 mg TID TOMY Administration Albuterol 2.5 mg 07/15/25 14:27 07/22/25 09:26 Albuterol Neb 2.5 Mg/3 Ml INH 2.5 mg Q4HR PRN Administration Wheezing Budesonide 0.5 mg 07/21/25 19:00 07/23/25 08:03 Budesonide 0.5 Mg/2 Ml Neb INH 0.5 mg RTBID TOMY Administration Doxazosin Mesylate 8 mg 07/20/25 21:00 07/23/25 08:31 Doxazosin 4 Mg Tablet PO 8 mg BID TOMY Administration Formoterol Fumarate 20 mcg 07/21/25 19:00 07/23/25 08:03 Formoterol Fumarate Neb 20 Mcg/2 Ml INH 20 mcg RTBID TOMY Administration Guaifenesin 600 mg 07/20/25 21:00 07/23/25 08:31 Guaifenesin 600 Mg Tablet PO 600 mg BID TOMY Administration Heparin Sodium (Porcine) 5,000 unit 07/18/25 09:00 07/23/25 08:37 Heparin 5,000 Unit/Ml Vial SUBQ 5,000 unit BID TOMY Administration Ipratropium [place] 0.5 mg 07/15/25 14:27 07/19/25 13:10 Ipratropium 0.2 Mg/Ml Neb INH 0.5 mg Q6HR PRN Administration Wheezing Melatonin 3 mg 07/18/25 21:00 07/22/25 21:15 Melatonin 3 Mg Tablet PO 3 mg QPM TOMY Administration Metoprolol Tartrate 25 mg 07/20/25 21:00 07/23/25 08:31 Metoprolol Tartrate 25 Mg Tablet PO 25 mg BID TOMY Administration Multivitamins/Minerals 1 tab 07/23/25 08:00 07/23/25 08:31 Multivitamin W/Minerals Tablet PO 1 tab DAILYWM TOMY Administration Ondansetron HCl 4 mg 07/15/25 06:58 07/16/25 16:49 Ondansetron 4 Mg/2 Ml Vial IVP 4 mg Q6HR PRN Administration Nausea / Vomiting Oxycodone HCl 10 mg 07/20/25 10:04 07/23/25 01:33 Oxycodone 5 Mg Tablet PO 10 mg Q4HR PRN Administration Severe Pain (Level 7-10) Oxycodone HCl 5 mg 07/20/25 10:19 07/20/25 20:24 Oxycodone 5 Mg Tablet PO 5 mg Q4HR PRN Administration Moderate Pain (Level 4-6) Pantoprazole Sodium 40 mg 07/23/25 07:00 07/23/25 06:10 Pantoprazole 40 Mg Tablet PO 40 mg QDAC TOMY Administration Phenazopyridine HCl 100 mg 07/23/25 07:31 Phenazopyridine 100 Mg Tablet PO TID PRN Bladder Spasms Prochlorperazine Edisylate 10 mg 07/15/25 14:27 07/18/25 22:57 Prochlorperazine 10 Mg/2 Ml Vial IVP 10 mg Q6HR PRN Administration Nausea / Vomiting Sodium Chloride 10 ml 07/15/25 17:00 07/23/25 08:37 Sodium Chloride Flush 0.9% 10 Ml Syringe IVP 10 ml 0100,0900,1700 TOMY Administration Sodium Chloride 10 ml 07/15/25 14:27 07/22/25 21:15 Sodium Chloride Flush 0.9% 10 Ml Syringe IVP 10 ml PRN PRN Administration NEEDED PER PROVIDER ORDERS Trazodone HCl 50 mg 07/21/25 21:00 07/22/25 21:15 Trazodone 50 Mg Tablet PO 50 mg QPM TOMY Administration Objective Vital Signs/Intake & Output Reviewed Vital Signs: Yes Vital Signs: Vital Signs x48h Temp Pulse Pulse Resp BP BP Pulse Ox 07/23/25 09:43 99.4 F 81 23 108/88 92 07/23/25 08:31 74 108/88 07/23/25 08:05 78 18 07/23/25 06:00 98.4 F 71 16 132/58 H 92 Intake & Output: Intake & Output 07/20/25 07/21/25 07/22/25 07/23/25 22:59 23:59 23:59 23:59 Intake Total 3281 / 3181 3180 / 3180 1420 / 1420 460 / 460 Output Total 4260 / 4260 3715 / 3715 1517 / 1517 490 / 490 Balance -979 / -1079 -535 / -535 -97 / -97 -30 / -30 Weight (kg) 102.5 kg 100 kg 98.5 kg 98.5 kg Objective General Appearance: positive No acute distress and Alert Eyes Bilateral: positive Conjunctivae nml and No scleral icterus Respiratory: positive Chest non-tender, No respiratory distress and Wheezes; negative Rales or Rhonchi Cardiovascular: positive Regular rate & rhythm, No murmur and No gallop; negative Friction rub Peripheral Pulses: 2+: Radial (R), 2+: Radial (L), 2+: Dorsalis pedis (R) and 2+: Dorsalis pedis (L) Abdomen: positive Tenderness and Other (Slight abdominal distension though less than before. Ostomy in right abdomen: Minimal liquidy and some gas output from ostomy. Stoma appears necrotic along the superior aspect. Some discoloration along inferior aspect of his midline dressing. NISREEN drain in left abdomen. Midline incision intact and dry); negative No distention (slight), Guarding or Rebound Back: positive Nml inspection Skin: positive Color nml Extremities: positive No pedal edema Neurologic/Psychiatric: positive Oriented x3 and Mood/affect nml Lab Results 07/23/25 05:40 07/23/25 07:47 Other Labs: Lab Results x24hrs 07/23/25 07/23/25 07/22/25 Range/Units 07:47 05:40 13:52 WBC 12.8 H (4.8-10.8) x10^3/uL RBC 3.63 L (4.70-6.10) 10^6/uL Hgb 11.5 L (14.0-18.0) g/dL Hct 35.5 L (42.0-52.0) % MCV 97.8 H (80.0-94.0) fL MCH 31.7 H (27.0-31.0) pg MCHC 32.4 (32.0-36.0) g/dL RDW 13.4 (12.0-15.0) % Plt Count 362 (130-450) 10^3/uL MPV 9.5 (7.4-11.4) fL Neut # (Auto) 9.2 H (1.5-6.6) 10^3/uL Lymph # (Auto) 2.0 (1.5-3.5) 10^3/uL [place] # (Auto) 0.9 (0.0-1.0) 10^3/uL Eos # (Auto) 0.4 (0.0-0.7) 10^3/uL Baso # (Auto) 0.1 (0.0-0.1) 10^3/uL Absolute Nucleated RBC 0.00 x10^3/uL Nucleated RBC % 0.0 /100WBC Sodium 138 137 (135-145) mmol/L Potassium 3.8 3.2 L (3.5-4.5) mmol/L Chloride 100 L 97 L (101-111) mmol/L Carbon Dioxide 34 H 38 H (21-32) mmol/L Anion Gap 4.0 L 2.0 L (6-13) BUN 16 20 (6-20) mg/dL Creatinine 0.7 0.8 (0.6-1.3) mg/dL Estimated GFR (MDRD) 106 91 (>89) Glucose 110 H 115 H (74-104) mg/dL Calcium 8.0 L 7.9 L (8.5-10.3) mg/dL Diagnostic Imaging Diagnostic Imaging Results: positive Final report reviewed Sepsis Event Note (H) Evaluation Current Stage of Sepsis: Septic shock Possible source of Sepsis: positive GI tract/intra-abdominal Sepsis Criteria Sepsis Criteria: WBC count greater than 10% bands, WBC count greater than 12,000 or less than 4000, SBP less than 90 mmHg and Renal: urine output less than 0.5ml/kg/hr for 2 hours or creatinine gr Assessment/Plan Problem List (1) Ischemia, bowel: (2) Bowel obstruction: Impression: Patient presented with abdominal pain on 07/14. Taken to the OR on 07/15 with partial colectomy and resultant colostomy. Course complicated with septic shock, hypoxemic respiratory failure postoperatively. Now resolved, doing well. Completed 5-day course of IV antibiotics, meropenem for septic shock. Last day 07/22. Return of bowel function 07/20. Currently on a regular diet today. Tolerating well. Medically cleared for d/c, awaiting SNF placement. Qualifiers: Intestinal obstruction extent: partial Intestinal obstruction type: u nspecified Qualified Code(s): K56.600 - Partial intestinal obstruction, unspecified as to cause (3) Left inguinal hernia: Impression: Initially reduced in ER on 07/15. Not surgically repaired yet. Suspect hernia incarceration may be the main cmv driver of his bowel ischemia as above. On 07/20, the patient had recurrent inguinal pain that was palpated by surgery without successful reduction. Follow-up ultrasound did not reveal any occult incarceration. Follow-up outpatient for repair. (4) Pain passing urine: Impression: Started phenazopyridine 100 mg PO TID, switched to as needed today. Bladder protocol with bladder scans. Condom catheter in place. (5) Critical illness myopathy: Impression: PT recommended discharge to SNF, patient with deconditioning due to his acute illness. Awaiting authorization. Case management working on dispo planning to SNF. Nutrition following as above. (6) Acute hypoxemic respiratory failure: Impression: Resolved. On room air this morning. Seamus developed acute hypoxemic respiratory failure that may be due to delayed improvement secondary to asthma, aspiration pneumonia, fluid overload. Continue as needed Duonebs. Started on formulary equivalent of Wixela: budesonide and formoterol. Counseled patient on increasing incentive spirometer use. He has a Acapella also at bedside. Continue guaifenesin. (7) Atrial fibrillation with RVR: Impression: Doing well. Continues in sinus rhythm. Rate 70s to 80s. TTE completed: LVEF 55-60%, global LV systolic function normal, diastolic pattern = restrictive filling w/ reduced LV compliance and elevated LV filling pressures, RV normal size and function, RVSP > 41 mmHg, PASP mildly increased. New onset atrial fibrillation on 07/17 when the patient was acutely ill. He was started on Lopressor IV, every 6 hours, he then converted into sinus rhythm around 07/18. Suspect run of AF may have just been triggered by his critical illness. Continue lopressor PO 25 mg twice a day. Will need Holter monitor outpatient to determine A-fib burden, and need for anticoagulation. (8) Septic shock: Impression: Resolved. Suspect the etiology is septic shock likely from his intra-abdominal source. He has been treated with meropenem. (9) KSENIA (acute kidney injury): Impression: Resolved, suspect hemodynamic ATN from septic shock. (10) Hypertension: Impression: Chronic problem. Home meds include amlodipine 5 mg, lisinopril 10 mg. Metoprolol continued. Qualifiers: Hypertension type: unspecified Qualified Code(s): I10 - Essential (primary) hypertension (11) Asthma: Impression: Treatment as above with Duonebs, inhalers. Qualifiers: Asthma severity: mild Asthma persistence: unspecified Asthma complication type: unspecified Qualified Code(s): J45.909 - Unspecified asthma, uncomplicated (12) Anxiety: Impression: Stable. Resuming patient's home trazodone nightly (13) BPH (benign prostatic hyperplasia): Impression: Continue doxazosin. Qualifiers: Lower urinary tract symptom presence: unspecified whether lower urinary tract symptoms present Qualified Code(s): N40.0 - Benign prostatic hyperplasia without lower urinary tract symptoms
[2025-07-24 05:28] LABS: HCT - HEMATOCRIT 35.3 % (42.0-52.0); HGB - HEMOGLOBIN 11.1 g/dL (14.0-18.0); MEAN PLATELET VOLUME 10.1 fL (7.4-11.4); NRBC ABSOLUTE COUNT (AUTO) 0.00 x10^3/uL; NUCLEATED RED BLOOD CELLS AUTO 0.0 /100WBC; PLT - PLATELET COUNT 401 10^3/uL (130-450); RED CELL DISTRIBUTION WIDTH 13.6 % (12.0-15.0)
[2025-07-24 05:51] LABS: BUN - BLOOD UREA NITROGEN 14.0 mg/dL (6-20); CARBON DIOXIDE - CO2 31.0 mmol/L (21-32); CREATININE 0.6 mg/dL (0.6-1.3); GFR - MDRD 127.0 (>89)
--- NOTE | 2025-07-24 08:29 | PROVIDER PROGRESS NOTE ---
Current Medications Current Medications Current Medications: Current Medications Generic Name Dose Route Start Last Admin Trade Name Freq PRN Reason Stop Dose Admin Acetaminophen 1,000 mg 07/21/25 14:00 07/24/25 06:21 Acetaminophen 500 Mg Tablet PO 1,000 mg TID TOMY Administration Albuterol 2.5 mg 07/15/25 14:27 07/22/25 09:26 Albuterol Neb 2.5 Mg/3 Ml INH 2.5 mg Q4HR PRN Administration Wheezing Budesonide 0.5 mg 07/21/25 19:00 07/24/25 07:25 Budesonide 0.5 Mg/2 Ml Neb INH 0.5 mg RTBID TOMY Administration Doxazosin Mesylate 8 mg 07/20/25 21:00 07/23/25 21:14 Doxazosin 4 Mg Tablet PO 8 mg BID TOMY Administration Formoterol Fumarate 20 mcg 07/21/25 19:00 07/24/25 07:25 Formoterol Fumarate Neb 20 Mcg/2 Ml INH 20 mcg RTBID TOMY Administration Guaifenesin 600 mg 07/20/25 21:00 07/23/25 21:23 Guaifenesin 600 Mg Tablet PO 600 mg BID TOMY Administration Heparin Sodium (Porcine) 5,000 unit 07/18/25 09:00 07/23/25 21:24 Heparin 5,000 Unit/Ml Vial SUBQ 5,000 unit BID TOMY Administration Ipratropium [place] 0.5 mg 07/15/25 14:27 07/19/25 13:10 Ipratropium 0.2 Mg/Ml Neb INH 0.5 mg Q6HR PRN Administration Wheezing Melatonin 3 mg 07/18/25 21:00 07/23/25 21:23 Melatonin 3 Mg Tablet PO 3 mg QPM TOMY Administration Metoprolol Tartrate 25 mg 07/20/25 21:00 07/23/25 21:15 Metoprolol Tartrate 25 Mg Tablet PO 25 mg BID TOMY Administration Multivitamins/Minerals 1 tab 07/23/25 08:00 07/23/25 08:31 Multivitamin W/Minerals Tablet PO 1 tab DAILYWM TOMY Administration Ondansetron HCl 4 mg 07/15/25 06:58 07/16/25 16:49 Ondansetron 4 Mg/2 Ml Vial IVP 4 mg Q6HR PRN Administration Nausea / Vomiting Oxycodone HCl 10 mg 07/20/25 10:04 07/24/25 00:42 Oxycodone 5 Mg Tablet PO 10 mg Q4HR PRN Administration Severe Pain (Level 7-10) Oxycodone HCl 5 mg 07/20/25 10:19 07/20/25 20:24 Oxycodone 5 Mg Tablet PO 5 mg Q4HR PRN Administration Moderate Pain (Level 4-6) Pantoprazole Sodium 40 mg 07/23/25 07:00 07/24/25 06:22 Pantoprazole 40 Mg Tablet PO 40 mg QDAC TOMY Administration Phenazopyridine HCl 100 mg 07/23/25 07:31 Phenazopyridine 100 Mg Tablet PO TID PRN Bladder Spasms Prochlorperazine Edisylate 10 mg 07/15/25 14:27 07/18/25 22:57 Prochlorperazine 10 Mg/2 Ml Vial IVP 10 mg Q6HR PRN Administration Nausea / Vomiting Sodium Chloride 10 ml 07/15/25 17:00 07/24/25 00:42 Sodium Chloride Flush 0.9% 10 Ml Syringe IVP 10 ml 0100,0900,1700 TOMY Administration Sodium Chloride 10 ml 07/15/25 14:27 07/22/25 21:15 Sodium Chloride Flush 0.9% 10 Ml Syringe IVP 10 ml PRN PRN Administration NEEDED PER PROVIDER ORDERS Trazodone HCl 50 mg 07/21/25 21:00 07/23/25 21:23 Trazodone 50 Mg Tablet PO 50 mg QPM TOMY Administration Objective Vital Signs/Intake & Output Vital Signs: Vital Signs x48h Temp Pulse Pulse Resp BP Pulse Ox 07/24/25 07:55 98.2 F 69 20 124/53 L 92 07/24/25 07:26 74 18 07/24/25 00:33 98.2 F 65 22 111/50 L 92 Intake & Output: Intake & Output 07/21/25 07/22/25 07/23/25 07/24/25 23:59 23:59 23:59 23:59 Intake Total 3180 / 3180 1420 / 1420 1060 / 1060 Output Total 3715 / 3715 1517 / 1517 1493 / 1493 875 / 875 Balance -535 / -535 -97 / -97 -433 / -433 -875 / -875 Weight (kg) 100 kg 98.5 kg 98.5 kg 97.5 kg Lab Results 07/24/25 04:37 07/24/25 04:37 Other Labs: Lab Results x24hrs 07/24/25 Range/Units 04:37 WBC 15.9 H (4.8-10.8) x10^3/uL RBC 3.64 L (4.70-6.10) 10^6/uL Hgb 11.1 L (14.0-18.0) g/dL Hct 35.3 L (42.0-52.0) % MCV 97.0 H (80.0-94.0) fL MCH 30.5 (27.0-31.0) pg MCHC 31.4 L (32.0-36.0) g/dL RDW 13.6 (12.0-15.0) % Plt Count 401 (130-450) 10^3/uL MPV 10.1 (7.4-11.4) fL Neut # (Auto) 12.1 H (1.5-6.6) 10^3/uL Lymph # (Auto) 2.0 (1.5-3.5) 10^3/uL [place] # (Auto) 1.1 H (0.0-1.0) 10^3/uL Eos # (Auto) 0.4 (0.0-0.7) 10^3/uL Baso # (Auto) 0.1 (0.0-0.1) 10^3/uL Absolute Nucleated RBC 0.00 x10^3/uL Nucleated RBC % 0.0 /100WBC Sodium 137 (135-145) mmol/L Potassium 3.8 (3.5-4.5) mmol/L Chloride 103 (101-111) mmol/L Carbon Dioxide 31 (21-32) mmol/L Anion Gap 3.0 L (6-13) BUN 14 (6-20) mg/dL Creatinine 0.6 (0.6-1.3) mg/dL Estimated GFR (MDRD) 127 (>89) Glucose 106 H (74-104) mg/dL Calcium 8.1 L (8.5-10.3) mg/dL Magnesium 1.9 (1.7-2.3) mg/dL Sepsis Event Note (H) Evaluation Current Stage of Sepsis: Septic shock Possible source of Sepsis: positive GI tract/intra-abdominal Sepsis Criteria Sepsis Criteria: WBC count greater than 10% bands, WBC count greater than 12,000 or less than 4000, SBP less than 90 mmHg and Renal: urine output less than 0.5ml/kg/hr for 2 hours or creatinine gr Assessment/Plan Problem List (1) Ischemia, bowel: (2) Bowel obstruction: Qualifiers: Intestinal obstruction extent: partial Intestinal obstruction type: u nspecified Qualified Code(s): K56.600 - Partial intestinal obstruction, unspecified as to cause (3) Left inguinal hernia: (4) Pain passing urine: (5) Critical illness myopathy: (6) Acute hypoxemic respiratory failure: (7) Atrial fibrillation with RVR: (8) Septic shock: (9) KSENIA (acute kidney injury): (10) Hypertension: Qualifiers: Hypertension type: unspecified Qualified Code(s): I10 - Essential (primary) hypertension (11) Asthma: Qualifiers: Asthma severity: mild Asthma persistence: unspecified Asthma complication type: unspecified Qualified Code(s): J45.909 - Unspecified asthma, uncomplicated (12) Anxiety: (13) BPH (benign prostatic hyperplasia): Qualifiers: Lower urinary tract symptom presence: unspecified whether lower urinary tract symptoms present Qualified Code(s): N40.0 - Benign prostatic hyperplasia without lower urinary tract symptoms
--- NOTE | 2025-07-24 12:52 | Discharge Summary ---
"Discharge Summary Admit Date: 08/15/25 Discharge Date: 07/24/25 Discharging Provider: Dr. Ermias Cook Primary Care Provider: Bertha Guzman Code Status: Do Not Attempt Resuscitation Discharge Facility Name: [facility] DIAGNOSES Discharge Diagnoses with Status of Each Condition: Bowel ischemia, bowel obstructionpatient presented with abdominal pain on 07/14, taken to the OR on 07/07 with partial colectomy and resulting colostomy. Course was initially complicated with septic shock and hypoxemic respiratory failure, which have now both resolved. Completed 5-day course of IV antibiotics with meropenem. He had return of bowel function 07/20. Tolerating soft diet as well. Flaxton were all removed. Steri-Strips in place, they can come off. Persistent leukocytosisplease recheck in 1 week to ensure resolution. Left inguinal herniainitially reduced in ER on 07/15. Follow-up ultrasound did not resul reveal any occult incarceration, follow-up outpatient for repair. Pain passing urinephenazopyridine as needed. 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 Acute approximate respiratory failureresolved. Atrial fibrillation with rapid ventricular response resolved. Continue oral metoprolol. Will need Holter monitor to determine A-fib burden, and need for anticoagulation. Acute kidney injuryresolved. Hypertensionhold amlodipine. Continue lisinopril, metoprolol. Asthmacontinue home inhalers. Anxietycontinue home trazodone. BPHcontinue doxazosin. HPI History of Present Illness: Per Zohaib Attreya: pt with lower abdominal pain + nausea and vomiting that developed in last 24-48 h. no fevers but has chills. states he tripped and fell @ home but unsure if he passed out. denies head injury. no chest pain. no sob. no dysuria or hematuria. pt does have occasional constipation CONSULTS | PROCEDURES Consultations: General surgery Procedures: Scrotum /3no evidence of infection, torsion, moderate-sized hydroceles Chest x-ray111bilateral pleural effusions with scattered atelectasis, cardiomegaly Abdominal x-rayidline skin jennifer, nonobstructive bowel gas pattern Chest x-ray111cardiomegaly and mild vascular congestion, left pleural effusion Chest x-ray07/16endotracheal tube in good position, moderate vascular congestion and bilateral pleural effusions Chest x-ray07/15interval placement of right central line, no pneumothorax Abdomen x-ray07/15dilatation of proximal colon suggesting ileus and/or distal obstruction Head CT07/14no acute intracranial pathology Abdomen/pelvis CT07/14left inguinal hernia with distention of large bowel concerning for partial bowel obstruction HOSPITAL COURSE Hospital Course: Patient is a 89-year-old male with a history of asthma, BPH, anxiety who presented with abdominal pain. He was found to have an incarcerated hernia and had an exploratory laparotomy with transverse and left colectomy, end colostomy placement, as well as NISREEN drain placement was completed. His course was complicated by postoperative pulmonary insufficiency which required temporary intubation, as well as septic shock requiring vasopressors. He completed a course of meropenem for possible intra-abdominal source. He was extubated, and weaned off oxygen. He had recovery of bowel function, and his colostomy was working well. He was tolerating diet well. He did have a short run of atrial fibrillation with rapid ventricular response, which responded to metoprolol. Will need Holter monitor in the outpatient to determine atrial fibrillation burden and need for anticoagulation. Flaxton and NISREEN drain were removed. He remains with a slight leukocytosis, which will need to be followed up with outpatient. He will also need close follow-up with general surgery in the outpatient. He was discharged in stable condition to SNF. ALLERGIES Allergies Allergy/AdvReac Type Severity Reaction Status Date / Time No Known Drug Allergies Allergy Verified 07/14/25 17:53 MEDICATIONS Ambulatory Orders Medication Instructions Recorded Confirmed doxazosin 8 mg tablet 8 mg PO BID 01/18/25 5 fluticasone 500 mcg-salmeterol 50 1 inh inhalation JES LY PRN wheezing 01/18/25 07/16/25 mcg/dose blistr powdr for inhalation (Wixela Inhub) lisinopril 10 mg tablet 10 mg PO DAILY 01/18/2506/19 pantoprazole 40 mg tablet,delayed 40 mg PO DAILY 01/1807/14/25 release simvastatin 20 mg tablet 20 mg PO DAILY 01/18/2506/19 trazodone 50 mg tablet 25 mg PO DAILY 01/18/2506/19 alprazolam 0.25 mg tablet 0.125 - 0.25 mg PO DAILY PRN 07/14/25 07/16/25 anxiety aspirin 81 mg capsule 81 mg PO DAILY 07/14/25/04/11 colchicine 0.6 mg capsule See Rx Instructions PO DAILY 07/14/25 07/16/25 hydrocodone 5 mg-acetaminophen 325 1 tab PO Q4H PRN pa in 07/14/25 07/16/25 mg tablet metoprolol tartrate 25 mg tablet 25 mg PO BID #60 tabs 07/24/25 phenazopyridine 100 mg tablet 100 mg PO TID PRN Bladde r Spasms 07/24/25 #30 tabs PHYSICAL EXAM AT DISCHARGE Vital Signs: Vital Signs x48h Temp Pulse Pulse Resp BP BP Pulse Ox 07/24/25 14:15 98.1 F 74 16 135/59 H 94 07/24/25 08:59 74 124/53 L General Appearance: positive No acute distress and Alert Eyes Bilateral: positive Conjunctivae nml and No scleral icterus Respiratory: positive Chest non-tender, No respiratory distress and Wheezes; negative Rales or Rhonchi Cardiovascular: positive Regular rate & rhythm, No murmur and No gallop; negative Friction rub Peripheral Pulses: 2+: Radial (R), 2+: Radial (L), 2+: Dorsalis pedis (R) and 2+: Dorsalis pedis (L) Abdomen: positive Tenderness and Other (Slight abdominal distension though less than before. Ostomy in right abdomen: Minimal liquidy and some gas output from ostomy. Stoma appears necrotic along the superior aspect. Some discoloration along inferior aspect of his midline dressing. Midline incision intact and dry, jennifer removed, steri-strips applied); negative No distention (slight), Guarding or Rebound Back: positive Nml inspection Skin: positive Color nml Extremities: positive No pedal edema Neurologic/Psychiatric: positive Oriented x3 and Mood/affect nml LABS 07/24/25 04:37 07/24/25 04:37 SEPSIS Current Stage of Sepsis: Resolved Possible source of Sepsis: GI tract/intra-abdominal Sepsis Criteria: WBC count greater than 10% bands, WBC count greater than 12,000 or less than 4000, SBP less than 90 mmHg and Renal: urine output less than 0.5ml/kg/hr for 2 hours or creatinine gr FOLLOW UP Follow Up: Follow-up with primary care provider. Follow-up with general surgery. Follow- up with cardiology. TIME SPENT Time Spent in Discharge (Minutes): 35 Discharge Plan Discharge Patient Disposition: 03 SNF DC/Xfer Condition: Stable Prescriptions: New metoprolol tartrate 25 mg Tablet 25 mg PO BID Qty: 60 0RF phenazopyridine 100 mg Tablet 100 mg PO TID PRN (Reason: Bladder Spasms) Qty: 30 0RF Continued trazodone 50 mg tablet 25 mg PO DAILY doxazosin 8 mg tablet 8 mg PO BID pantoprazole 40 mg tablet,delayed release (DR/EC) 40 mg PO DAILY simvastatin 20 mg tablet 20 mg PO DAILY lisinopril 10 mg tablet 10 mg PO DAILY fluticasone propion-salmeterol [Wixela Inhub] 500-50 mcg/dose blister with device 1 inh INHALATION DAILY PRN (Reason: wheezing) aspirin 81 mg capsule 81 mg PO DAILY hydrocodone-acetaminophen 5-325 mg tablet 1 tab PO Q4H PRN (Reason: pain) alprazolam 0.25 mg tablet 0.125 - 0.25 mg PO DAILY PRN (Reason: anxiety) colchicine 0.6 mg capsule See Rx Instructions PO DAILY Rx Instructions: orally daily; 2 capsule, then 1 capsule 1hr later as needed for gout. Max dose 3 capsule daily PRN Discontinued amlodipine 5 mg tablet 5 mg PO DAILY Activity Restrictions: Activity as Tolerated Diet: Regular Health Concerns: Hospital Course Summary: Patient admitted for bowel obstruction, underwent colectomy and colostomy. Hospitalization was complicated by septic shock (treated with 5 days of meropenem), hypoxia due to asthma and aspiration pneumonia, and atrial fibrillation with rapid ventricular response (converted to NSR, now rate controlled with metoprolol). Discharge Criteria Met: * Tolerating oral intake * Return of lower GI function * Adequate pain control with oral analgesia * Able to mobilize and self-care * No evidence of untreated complications * Received education on colostomy care and self-management Medications: * Continue metoprolol as prescribed for rate control of atrial fibrillation. * Review all medications for reconciliation at discharge Colostomy Care: * Monitor stoma output; report high output (>1200 cc/day), dehydration signs, or dark/no urine. * Observe for stoma complications: skin irritation, bleeding, or prolapse. * Continue self-care and use provided educational materials. * Arrange visiting nurse services if needed for support and monitoring. Warning Signs Contact Provider Immediately: * Wound drainage, redness, or opening * No bowel movement or lack of gas/stool from ostomy >24 hours * Increasing abdominal pain, vomiting, or abdominal swelling * High ostomy output, dark urine, or no urine * Fever >101.5F * Unable to tolerate oral intake >24 hours * Shortness of breath or chest pain: seek emergency care Follow-Up: * Laboratory tests in 1 week (CBC, electrolytes, renal function, as indicated) * Outpatient follow-up for assessment of physical, cognitive, and emotional recovery after sepsis * Surveillance for atrial fibrillation recurrence and thromboembolic risk stratification per ACC/AHA guidelines * Follow-up with general surgery Additional Instructions: * Maintain adequate hydration; monitor intake and output * Continue asthma management as directed * Avoid strenuous activity until cleared * Ensure adequate home support and access to outpatient resources Print Language: Georgian Patient Instructions: Surg Dc Stand Alone Forms: SNF Discharge, PCP List Follow-up Care: BERTHA GUZMAN MD [Primary Care Provider, Internal Medicine] Report called to and time (if no answer, doc. time of each call attempted): Melissa feliz [facility] at 1435, report to JUANJOSE Jacinto Vitals documented within 30 minutes of discharge?: Yes"
--- NOTE | 2025-07-24 13:06 | PROVIDER PROGRESS NOTE ---
Subjective General Admit Date: 07/16/25 Procedure Date: 07/15/25 Post Op Days: 9 Procedure Performed: Exp lap with transverse & left colectomy, end colostomy, Hartmanns, drain, Other Other Information/Narrative: Patient disappointed that [facility] did not approve his initial rehabilitation plans. Wound Assessment Wound/Incisions: positive Healing well Drain Type: None - I removed the drain last night. Drain Output Description: Serous prior to removal Approximate mls Output: Scant Review of Systems Patient is feeling markedly improved but is looking forward to improving his strength and mobility after his extensive surgery. I did not complete a ROS today. Exam Exam Vital Signs: Vital Signs x48h Temp Pulse Pulse Resp BP BP Pulse Ox 07/24/25 08:59 74 124/53 L 07/24/25 07:55 36.8 C 69 20 124/53 L 92 07/24/25 07:26 74 18 07/24/25 07:25 O2 Flow Rate 07/24/25 08:59 07/24/25 07:55 07/24/25 07:26 07/24/25 07:25 2 General: 89-year old male, appears younger than stated age, responding appropriately, feeling markedly better HEENT: Normocephalic, atraumatic, extraocular movement intact, mucous membranes pink and moist, sclera anicteric and not injected Neck: Trachea midline Cardiac: Regular rate and rhythm without rub, gallop, or murmur Chest: Clear to auscultation bilaterally anterolaterally Abdomen: Soft, positive bowel sounds, stool and flatus in colostomy bag, midline wound well-approximated with half the amount of jennifer that he had last night. I removed every other staple last evening and remove the drain. The patient tolerated this quite well. Genitourinary: Deferred Rectal: Deferred Extremities: No gross neurovascular problem, no clubbing, cyanosis or edema Gait: Not evaluated personally - but walking with assist Psychiatric: Alert and oriented x3, mood and affect appropriate, participating in and understanding future plans ABX Reporting Has patient been on IV antibiotics over the past 48 hours?: No Impression/Plan Problem List (1) Ischemia, bowel: (2) Bowel obstruction: Qualifiers: Intestinal obstruction extent: partial Intestinal obstruction type: unspecified Qualified Code(s): K56.600 - Partial intestinal obstruction, unspecified as to cause (3) Left inguinal hernia: (4) Pain passing urine: (5) Critical illness myopathy: (6) Acute hypoxemic respiratory failure: (7) Atrial fibrillation with RVR: (8) Septic shock: (9) KSENIA (acute kidney injury): (10) Hypertension: Qualifiers: Hypertension type: unspecified Qualified Code(s): I10 - Essential (primary) hypertension (11) Asthma: Qualifiers: Asthma severity: mild Asthma persistence: unspecified Asthma complication type: unspecified Qualified Code(s): J45.909 - Unspecified asthma, uncomplicated (12) Anxiety: (13) BPH (benign prostatic hyperplasia): Qualifiers: Lower urinary tract symptom presence: unspecified whether lower urinary tract symptoms present Qualified Code(s): N40.0 - Benign prostatic hyperplasia without lower urinary tract symptoms Plan D9 status post extended colectomy to include transverse colon and LEFT colon, with end ascending colon colostomy, Hartmanns, drain in LEFT gutter, umbilical herniorrhaphy 1) FEN Tolerating general diet. Supplement potassium orally. 2) ID Completed his course of meropenem. I am mildly concerned about his elevated white blood cell count with elevated neutrophils but this may just be reactionary. There are no other signs of infection. 3) DVT Prophylaxis physical and chemical. With ambulation this concern is decreasing. 4) Wound Well approximated with jennifer. I have removed every other staple but prior to discharge I would like to have all the jennifer removed and benzoin and half-inch Steri-Strips applied. Ostomy care should be ongoing. Ostomy teaching should also be ongoing. 5) Pain Well controlled on orals. 6) Placement Awaiting placement. I believe with aggressive rehabilitation he can achieve his presurgical state of health and strength and may actually be improved over what he was presurgically. In summary patient improving. Will continue to follow and care for patient in concert with our internal medicine colleagues. Upon discharge I will follow-up with him in my office 1 1 week after discharge if the jennifer were not removed and up to 3 to 4 weeks if the jennifer are removed. CPT 17776
[2025-07-24 14:52] VITALS: BP 135/59; TEMP 98.1; O2SAT 94
== END 2025-07-24 14:25 | DRG 871 ==
LOC: MS3 17:49 → ED 17:49 → SUATTDRO 07-15 02:22 → MS3 07-15 03:06 → ICU 07-15 11:59 → MS2 07-23 14:21
PROVIDERS: ADMIT Student in an Organized Health Care Education/Training Program; ATTEND Student in an Organized Health Care Education/Training Program